=== PATIENT | female | born 1980 | race Caucasian/White ===

== ENCOUNTER → 2018-11-13 16:45 | Outpatient (CLI) | payer OTHER, SELFPAY ==
[2016-01-10 07:58] VITALS: BMI 28.1
[2018-11-13 17:42] LABS: Absolute Lymphocyte Count 1.39 X10^3/ul (0.83-4.51); Absolute Neutrophil Count 7.7 X10^3/uL (2.0-7.7); Basophil# 0.01 X10^3/uL; Basophil% 0.1 % (0-1); Eosinophil# 0.04 X10^3/uL; Eosinophils% 0.4 % (0-5); Hematocrit 40.4 % (37-47); Hemoglobin 13.2 g/dl (12.0-15.0); Lymphocyte # 1.39 X10^3/ul (4.0); Lymphocyte % 14.4 % (19-41); Mean Corp Hgb Conc 32.7 g/gl (32-36); Mean Corpuscular Hgb 28.4 pg (27.0-32.0); Mean Corpuscular Volume 86.9 fL (81-99); Mean Platelet Vol. 10.3 fl (6.2-12.0); Monocyte# 0.51 X10^3/uL; Monocyte% 5.3 % (0-10); Neutrophil # 7.69 X10^3/uL (2.7-7.7); Neutrophil % 79.7 % (47-70); Platelet Count 306 K/mm3 (150-450); RBC Distribution Width CV 13.1 % (11.6-14.6); RBC Distribution Width SD 41.7 fl (35.1-43.9); Red Blood Count 4.65 M/mm3 (4.2-5.4); White Blood Count 9.7 K/mm3 (4.4-11.0)
[2018-11-13 17:48] LABS: POSITIVE COUNT NO; POSITIVE DIFFERENTIAL NO; POSITIVE MORPHOLOGY NO
[2018-11-13 18:15] LABS: Vitamin B12 617 pg/mL (211-911)
[2018-11-13 18:22] LABS: AST(SGOT) 18 U/L (15-37); Alanine Aminotransfer ALT/SGPT 24 U/L (13-56); Alkaline Phosphatase 77 U/L (45-117); Anion Gap 11 (5-15); BUN 9 mg/dL (7-18); BUN/Creat Ratio 14.3 RATIO (10-20); Calcium,Total 9.2 mg/dL (8.5-10.1); Chloride 103 mmol/L (98-107); Creatinine, Serum 0.63 mg/dL (0.55-1.02); EST Glomerular Filtration Rate 113 mL/min (>60); Est Glom Filt Rate - Afr Amer 137 mL/min (>60); Ferritin 17 ng/mL (8-252); Globulin 3.9 g/dL (2.2-4.2); Glucose 95 mg/dL (74-106); Iron 85 ug/dL (50-170); Potassium 3.9 mmol/L (3.5-5.1); Protein, Total 7.9 g/dL (6.4-8.2); Sodium Level 139 mmol/L (136-145); T4 Free Direct 0.94 ng/dL (0.76-1.46); Thyroid Stim Hormone (TSH) 4.63 uIU/mL (0.358-3.74)
== END ==
PROVIDERS: Family Provider Family Medicine; PCP Family Medicine; Referring Provider Family Medicine; Visit Provider Family Medicine
DX: D64.9 Anemia, unspecified (principal); R23.3 Spontaneous ecchymoses; R10.11 Right upper quadrant pain; R53.83 Other fatigue
CPT/HCPCS: 36415; 80053; 82607; 82728; 83540; 84439; 84443; 85025

== ENCOUNTER 2018-12-09 10:46 | Emergency (ER) | payer OTHER, SELFPAY ==
[2018-12-09 10:47] VITALS: BP 164/86; PULSE 98; RESP 16; TEMP 36.7; O2SAT 100; BMI 30.7
--- NOTE | 2018-12-09 10:56 | ED.VISSUMM ---
- ER Visit Summary Date of Service: 12/09/18 Chief Complaint: Palpitations History of Present Illness: The patient is a 38 F history of anxiety and hypothyroidism. A month or so ago was started on thyroid medications. She states since Monday she has had palpitations. Really no significant chest pain. No exertional dyspnea nor exertional chest pain. States she is never had palpitations before. She denies any dyspnea. No recent nausea, vomiting or diarrhea. No fever. No recent travel, surgery or immobilization. No pain or swelling. No hemoptysis. Physical Examination: Well-appearing young female. Vital signs are stable. She is afebrile. Currently her heart rates in the 90s. Pulse ox 98% on room air no signs of hypoxia. No distress. H EENT exam unremarkable. Neck nontender. No lymphadenopathy. Lungs clear to auscultation bilaterally. Heart regular rate and rhythm no murmur rate about 100. Abdomen is soft and nontender. Normal bowel sounds no peritoneal signs. Extremities moves all 4. Calves are nontender without edema nor cords. Neurologically she is awake alert with no focal motor deficits. Skin is unremarkable. No rashes. Test Results: CBC normal. White count of 7. Hemoglobin 13. Chemistries normal normal gap and creatinine. TSH normal at 1.0 and troponin normal. Chest x-ray portable 1 view normal cardiac silhouette. No acute abnormality read both by myself and the radiologist. EKG sinus rhythm rate of 93 with PVCs. No signs of ischemia. No dysrhythmia. Emergency Department Course and Treatment: Patient with palpitations otherwise normal exam. Repeat exam at 11:53 AM patient is doing well. She is resting comfortably. She and I went over all of her test results. She is comfortable being discharged home. Treatment Plan: Follow-up with your primary care physician as needed. Disposition: Discharge Impression: Acute palpitations secondary to premature ventricular contraction This note was generated with Onzo dictation software. It may contain incorrect words, spelling, and punctuation that were not noted in review of the chart prior to signing ED Disposition - Plan for ED Patient: Referrals: Jayden Knapp MD [Primary Care Provider] -
--- NOTE | 2018-12-09 10:58 | EKG12_ITS ---
Test Reason : PALPS Blood Pressure : / mmHG Vent. Rate : 093 BPM Atrial Rate : 093 BPM P-R Int : 150 ms QRS Dur : 094 ms QT Int : 386 ms P-R-T Axes : 042 025 044 degrees QTc Int : 479 ms Sinus rhythm with occasional Premature ventricular complexes Otherwise normal ECG Confirmed by KRISTINA SANCHEZ, VIVIANE ([id number]), supervising film or videotape editor LACHO SCHMIDT ([id number]) on 12/11/2018 5:02:57 PM Referred By: KUSH Confirmed By:VIVIANE ACEVEDO MD
[2018-12-09 11:08] VITALS: O2SAT 100
--- NOTE | 2018-12-09 11:10 | RAD_ITS ---
STUDY: X-RAY CHEST REASON FOR EXAM: Female, 38 years old. Palpitations TECHNIQUE: AP COMPARISON: None. FINDINGS: EKG leads project over the chest. The lungs are clear and expanded. There is no demonstrated pleural abnormality. Normal size heart. Normal mediastinum and daniel. Normal visualized pulmonary arteries. Normal visualized aortic arch and descending thoracic aorta. Normal visualized thoracic spine. Normal visualized ribs, clavicles, and shoulders. There is no demonstrated abnormality of the visualized soft tissue structures of the upper abdomen. RAD/Chest 1 View (Portable) IMPRESSION: Nonacute portable x-ray examination of the chest. Electronically Signed: Frederic Rodriguez MD at 11:35 EST , Service support ,
[2018-12-09 11:18] LABS: Absolute Lymphocyte Count 1.65 X10^3/ul (0.83-4.51); Absolute Neutrophil Count 5.3 X10^3/uL (2.0-7.7); Basophil# 0.01 X10^3/uL; Basophil% 0.1 % (0-1); Eosinophil# 0.07 X10^3/uL; Eosinophils% 0.9 % (0-5); Hematocrit 40.1 % (37-47); Hemoglobin 13.6 g/dl (12.0-15.0); Lymphocyte # 1.65 X10^3/ul (4.0); Mean Corp Hgb Conc 33.9 g/gl (32-36); Mean Corpuscular Hgb 29.2 pg (27.0-32.0); Mean Corpuscular Volume 86.1 fL (81-99); Mean Platelet Vol. 10.3 fl (6.2-12.0); Monocyte# 0.49 X10^3/uL; Monocyte% 6.5 % (0-10); Neutrophil # 5.28 X10^3/uL (2.7-7.7); Neutrophil % 70.4 % (47-70); Platelet Count 286 K/mm3 (150-450); RBC Distribution Width CV 12.7 % (11.6-14.6); RBC Distribution Width SD 39.3 fl (35.1-43.9); Red Blood Count 4.66 M/mm3 (4.2-5.4); White Blood Count 7.5 K/mm3 (4.4-11.0)
[2018-12-09 11:19] LABS: POSITIVE COUNT NO; POSITIVE DIFFERENTIAL NO; POSITIVE MORPHOLOGY NO
[2018-12-09 11:41] LABS: BUN 11 mg/dL (7-18); Glucose 91 mg/dL (74-106)
[2018-12-09 11:42] LABS: Anion Gap 8 (5-15); BUN/Creat Ratio 18.2 RATIO (10-20); Chloride 105 mmol/L (98-107); EST Glomerular Filtration Rate 119 mL/min (>60); Est Glom Filt Rate - Afr Amer 144 mL/min (>60); Estimated Creatinine Clearance 116.64 ml/min; Potassium 3.6 mmol/L (3.5-5.1); Sodium Level 136 mmol/L (136-145); Thyroid Stim Hormone (TSH) 1.01 uIU/mL (0.358-3.74)
--- NOTE | 2018-12-09 11:56 | ED.DEP ---
ED Disposition - Plan for ED Patient: Disposition: Home or Assisted Living Instructions: Premature Ventricular Contractions Referrals: Jayden Knapp MD [Primary Care Provider] - As Needed
[2018-12-09 12:02] VITALS: BP 132/82; PULSE 90; RESP 16; O2SAT 100
== END 2018-12-09 12:04 | disposition home or self-care (01) ==
PROVIDERS: Emergency Provider Emergency Medicine; Family Provider Family Medicine; PCP Family Medicine
DX: I49.3 Ventricular premature depolarization (principal); F41.9 Anxiety disorder, unspecified; E03.9 Hypothyroidism, unspecified
CPT/HCPCS: 71045; 80048; 84443; 84484; 85025; 93005; 99284; A4216

== ENCOUNTER 2018-12-20 22:07 | Emergency (ER) | payer OTHER, SELFPAY ==
[2018-12-14 11:30] VITALS: BMI 30.7
[2018-12-20 22:08] VITALS: BP 141/87; PULSE 105; RESP 14; TEMP 36.9; O2SAT 99; BMI 29.6
--- NOTE | 2018-12-20 22:21 | EKG12_ITS ---
Test Reason : CP Blood Pressure : / mmHG Vent. Rate : 091 BPM Atrial Rate : 091 BPM P-R Int : 130 ms QRS Dur : 094 ms QT Int : 366 ms P-R-T Axes : 070 040 022 degrees QTc Int : 450 ms Normal sinus rhythm Nonspecific T wave abnormality Abnormal ECG Confirmed by KRISTINA SANCHEZ, VIVIANE ([id number]), editorial intern JOSE CARLOS PALMER ([id number]) on 12/25/2018 8:45:54 AM Referred By: JEAN Confirmed By:VIVIANE ACEVEDO MD
[2018-12-20 22:34] VITALS: O2SAT 100
--- NOTE | 2018-12-20 22:35 | RAD_ITS ---
STUDY: X-RAY CHEST REASON FOR EXAM: Female, 38 years old. Chest pain. TECHNIQUE: Single frontal view of the chest. COMPARISON: December 09, 2018 FINDINGS: The lungs are clear and expanded. There is no demonstrated pleural abnormality. Normal size heart. Normal mediastinum and daniel. Normal visualized pulmonary arteries. Normal visualized aortic arch and descending thoracic aorta. Normal visualized thoracic spine. Normal visualized ribs, clavicles, and shoulders. There is no demonstrated abnormality of the visualized soft tissue structures of the upper abdomen. RAD/Chest 1 View (Portable) IMPRESSION: No acute cardiopulmonary process. Electronically Signed: Fatoumata Garcia MD at 22:46 EST Tel , Service support ,
[2018-12-20 22:37] VITALS: BP 135/89; PULSE 85; RESP 15; TEMP 36.9; O2SAT 100
[2018-12-20 22:54] LABS: Absolute Lymphocyte Count 1.86 X10^3/ul (0.83-4.51); Absolute Neutrophil Count 5.2 X10^3/uL (2.0-7.7); Basophil# 0.01 X10^3/uL; Basophil% 0.1 % (0-1); Eosinophil# 0.08 X10^3/uL; Hematocrit 39.9 % (37-47); Hemoglobin 13.6 g/dl (12.0-15.0); Lymphocyte # 1.86 X10^3/ul (4.0); Lymphocyte % 24.2 % (19-41); Mean Corp Hgb Conc 34.1 g/gl (32-36); Mean Corpuscular Hgb 28.9 pg (27.0-32.0); Mean Corpuscular Volume 84.7 fL (81-99); Mean Platelet Vol. 10.3 fl (6.2-12.0); Monocyte# 0.56 X10^3/uL; Monocyte% 7.3 % (0-10); Neutrophil # 5.18 X10^3/uL (2.7-7.7); Neutrophil % 67.3 % (47-70); Platelet Count 281 K/mm3 (150-450); RBC Distribution Width CV 12.8 % (11.6-14.6); RBC Distribution Width SD 39.3 fl (35.1-43.9); Red Blood Count 4.71 M/mm3 (4.2-5.4); White Blood Count 7.7 K/mm3 (4.4-11.0)
[2018-12-20 22:56] LABS: POSITIVE COUNT NO; POSITIVE DIFFERENTIAL NO; POSITIVE MORPHOLOGY NO
[2018-12-20 23:04] LABS: Anion Gap 9 (5-15); BUN 6 mg/dL (7-18); BUN/Creat Ratio 8.6 RATIO (10-20); Chloride 105 mmol/L (98-107); EST Glomerular Filtration Rate 100 mL/min (>60); Est Glom Filt Rate - Afr Amer 121 mL/min (>60); Estimated Creatinine Clearance 99.98 ml/min; Glucose 102 mg/dL (74-106); Potassium 3.3 mmol/L (3.5-5.1); Sodium Level 137 mmol/L (136-145)
--- NOTE | 2018-12-20 23:42 | ED.VISSUMM ---
- ER Visit Summary Date of Service: 12/20/18 Chief Complaint: Chest pain History of Present Illness: The patient is a 38 F with chest pain that started at 5 PM today. It feels like a burning and sharp pain. It starts in her chest and radiates to her arms. She thought it might be related to reflux and tried Zantac but it did not help. She also had some anxiety. She has a history of hypothyroidism. No recent surgery. No history of heart disease or PE. No history of travel or surgery or immobilization recently. Non-smoker. No hormones. Physical Examination: Afebrile and vital signs unremarkable except for heart rate of 105. Patient is alert and oriented. No acute distress. Sitting comfortably. Heart regular rate and rhythm. Lungs clear. Skin normal in color without pallor or diaphoresis. Extremities nontender with no edema. Test Results: EKG shows sinus rhythm at a rate of 91 with nonspecific T wave changes. CBC normal. Potassium 3.3. Troponin normal. Chest x-ray showed no acute findings Emergency Department Course and Treatment: She had an EKG and was placed on a monitor. IV obtained and labs drawn. She declined anything for pain. Workup was fairly unremarkable. Potassium was 3.3 and she received a dose of K-Dur. Other than some nonspecific EKG changes and tachycardia, she had no other abnormal findings or concerning symptoms. Her heart score is 1. I cannot rule out PE because of her tachycardia, but I feel that PE is extremely unlikely. Patient declined any further evaluation for PE. There is nothing to suggest dissection. I suspect that her symptoms are related to GI issues and anxiety. Patient can continue her home medications. Follow-up with her doctor. Return for any new or worsening issues. Treatment Plan: As above Disposition: Discharge Impression: 1. Chest pain 2. Hypokalemia This note was generated with DocuSignation software. It may contain incorrect words, spelling, and punctuation that were not noted in review of the chart prior to signing ED Disposition - Plan for ED Patient: Referrals: Jayden Knapp MD [Primary Care Provider] -
--- NOTE | 2018-12-20 23:47 | ED.DCSUM_ITS ---
- ER Visit Summary Date of Service: 12/20/18 Chief Complaint: Chest pain History of Present Illness: The patient is a 38 F with chest pain that started at 5 PM today. It feels like a burning and sharp pain. It starts in her chest and radiates to her arms. She thought it might be related to reflux and tried Zantac but it did not help. She also had some anxiety. She has a history of hypothyroidism. No recent surgery. No history of heart disease or PE. No history of travel or surgery or immobilization recently. Non-smoker. No hormones. Physical Examination: Afebrile and vital signs unremarkable except for heart rate of 105. Patient is alert and oriented. No acute distress. Sitting comfortably. Heart regular rate and rhythm. Lungs clear. Skin normal in color without pallor or diaphoresis. Extremities nontender with no edema. Test Results: EKG shows sinus rhythm at a rate of 91 with nonspecific T wave changes. CBC normal. Potassium 3.3. Troponin normal. Chest x-ray showed no acute findings Emergency Department Course and Treatment: She had an EKG and was placed on a monitor. IV obtained and labs drawn. She declined anything for pain. Workup was fairly unremarkable. Potassium was 3.3 and she received a dose of K- Dur. Other than some nonspecific EKG changes and tachycardia, she had no other abnormal findings or concerning symptoms. Her heart score is 1. I cannot rule out PE because of her tachycardia, but I feel that PE is extremely unlikely. Patient declined any further evaluation for PE. There is nothing to suggest dissection. I suspect that her symptoms are related to GI issues and anxiety. Patient can continue her home medications. Follow-up with her doctor. Return for any new or worsening issues. Treatment Plan: As above Disposition: Discharge Impression: 1. Chest pain 2. Hypokalemia This note was generated with Alignment Acquis[employer]ation software. It may contain incorrect words, spelling, and punctuation that were not noted in review of the chart prior to signing ED Disposition - Plan for ED Patient: Referrals: Jayden Knapp MD [Primary Care Provider] -
--- NOTE | 2018-12-20 23:47 | ED.DEP ---
ED Disposition - Plan for ED Patient: Instructions: ED Chest Pain Atypical Unkn Cause Referrals: Jayden Knapp MD [Primary Care Provider] -
[2018-12-20 23:53] VITALS: BP 118/81; PULSE 68; RESP 16; O2SAT 97
== END 2018-12-20 23:59 | disposition home or self-care (01) ==
LOC: ED 23:10
PROVIDERS: Emergency Provider Emergency Medicine; Family Provider Family Medicine; PCP Family Medicine
DX: R07.9 Chest pain, unspecified (principal); E87.6 Hypokalemia; E03.9 Hypothyroidism, unspecified
CPT/HCPCS: 71045; 80048; 84484; 85025; 93005; 99285; A4216

== ENCOUNTER 2019-01-10 08:45 | Outpatient (RCR) | payer OTHER, SELFPAY ==
--- NOTE | 2019-01-10 09:01 | BH.SGPN.GN ---
Behaviors/Verbalizations/Mental Status: [Eye contact is good. Motor activity is appropriate. Appearance is casual and neat. Speech is Appropriate. Mood is anxious and dysthymic. Affect is congruent. Thoughts are linear and logical. No evidence of psychosis. Completed DSM cross-cutting assessment prior to group, no reported risk.]] Client Response/Progress/Benefit: [Pt first day in IOP group and did well to be engaged throughout AEB attentive and providing input. Emotion for today is uncertain indicating that she is trying to adjust to group environment and is feeling worried and frustrated about being able to manage ongoing anxiety. Reports this is her major stressors as it prevents her from sleeping, completing daily responsibilities at home and caused her to leave work early yesterday. Pt benefitted from empathic responses and supportive feedback of group. Identified wanting to improve healthy coping skills as well as ability to challenge anxious thoughts. Able to identify current positives as taking the step to begin therapy and work on reducing anxiety as well as being able to actually get some sleep last night as she usually has trouble with rumination preventing sleep. Plan is to remain in IOP to maintain safety and develop healthy skills for anxiety management and thought challenging. ] Narrative Note: []
--- NOTE | 2019-01-10 10:20 | BH.SGPN.GN ---
Behaviors/Verbalizations/Mental Status: []Client alert and oriented, neatly dressed and groomed. Eye contact good. Motor activity appropriate. Speech soft. Affect congruent, mood anxious. Thoughts linear, logical, no signs of hallucinations or delusions. Client Response/Progress/Benefit: []Client responded well to session, quiet, but taking notes and shared thoughts at times. Client connected with the topic of failure and famous people that have overcome setbacks. Client nodded that how one views failure can impact mental health and progress. Client shared we can measure success by effort versus measuring success by achieving a goal or not. Client stated fear of failure can result in worrying about the future.?Client engaged in a group activity that encouraged the group to overcome fear of failure and challenge their perspective of failure. Client was positive and provided verbal direction to group members. Client appeared to benefit from gaining awareness of how fear of failure negatively impacts mental health. Client showing progress with increased awareness of how unhealthy thought patterns impact her mental health. Pt to continue IOP level of care to decrease anxiety, identify and challenge anxious thoughts, and prevent decompensation. Narrative Note: []
--- NOTE | 2019-01-10 11:19 | BH.SGPN.GN ---
Behaviors/Verbalizations/Mental Status: []Client alert and oriented, neatly dressed and groomed. Eye contact good. Motor activity appropriate. Speech within normal limits. Affect congruent, mood anxious. Thoughts linear, logical, no signs of hallucinations or delusions. Client Response/Progress/Benefit: []Client responded well to session, providing input to discussion. Client further processed the group activity and shared that using supports and not getting defeated by setbacks helped the group accomplish the activity. Client completed the fear of failure worksheet and reported that fear of failure is keeping her from being productive at work and causes her to ?go through the motions? as a , employee, and mother. Client reported her barriers for overcoming her fear of failure are guilt, being a burden, obsessive thoughts, and being expected to ?feel fine.? Client shared she has been able to bounce back from setbacks in the past and the positive thing she has learned from past failures is ?there?s always another option.? Client selected a goal to help her overcome her fear of failure. Client?s goal is to focus on thoughts are thoughts, not facts. Client appeared to benefit from gaining awareness and setting a goal to reduce fear of failure. Client?s first day in IOP. To continue to prevent decompensation.
--- NOTE | 2019-01-11 09:02 | BH.SGPN.GN ---
Behaviors/Verbalizations/Mental Status: [Eye contact is fair to good. Motor activity is WNL. Appearance is casual, neat. Speech is appropriate rate and tone. Mood is dysthymic, anxious. Affect is constricted. Thoughts intact, linear and logical. No evidence of psychosis. Reviewed daily check in sheet with no reports of suicidal ideations or intent] Client Response/Progress/Benefit: [Pt provided minimal input though attentive throughout discussion and willing to process with group. Emotion for today is scared as she continues to worry about managing her anxiety and how it is impacting other areas of her life. Pt identified mental health positives as taking her dog out for a walk and completing her child?s kindergarten registration paperwork. Pt went on to share that these are positives as her anxiety makes it difficult to complete daily tasks, noting that this was the first walk she has gone on with her dog this year. Progress in pt ability to small positives and she appeared to benefit from supportive suggestions provided by the group. Current stressor is ongoing insomnia which pt reports struggling with relying solely on her Xanax to fall asleep despite not wanting to have to take medication. Will continue in IOP to maintain safety, begin development of healthy anxiety management tools, and work towards reducing sx causing panic and insomnia] Narrative Note: []
--- NOTE | 2019-01-11 10:20 | BH.SGPN.GN ---
Behaviors/Verbalizations/Mental Status: [] Eye contact is good. Motor activity is appropriate. Appearance is neat. Speech is Appropriate. Mood is anxious. Affect is congruent. Thoughts are linear and logical. No evidence of psychosis. Client Response/Progress/Benefit: [] Pt was an active participant in group discussion and activity. Worked with the group to identify negative coping skills which increase MH symptoms such as; addiction, isolation, avoidance, sleeping to escape, anger outbursts, and impulsive behaviors. Group also identified barriers or obstacles that keep us in unhealthy coping skills such as; lack of awareness of healthy coping, immediate gratification, unhealthy feels comfortable, challenging to change what we are used too, being in negative relationships, and distorted thinking. Participated in experiential activity and processed the activity with the group. Through processing of activity group identified some strategies which helped them overcome barriers during the activity. Able to identify how strategies used such as communication, focus, and mindfulness could also be beneficial positive coping skills. Started to categorize internal vs external coping skills. Benefited from group through identification of unhealthy coping skills, barriers to overcoming unhealthy coping skills, psycho-education on external vs internal coping skills, and coping strategies. Will continue in IOP to prevent decompensation, decrease panic attacks, improve functioning to return to work. Narrative Note: []
--- NOTE | 2019-01-11 13:15 | PCM.HP.BLA ---
History and Physical Date of Admission: 01/10/19 Chief Complaint: The patient is a 38-year old female who is beginning treatment in the intensive outpatient mental health treatment program at [facility]. She has a history of problems with anxiety, OCD symptoms, somatization and depression. History of Present Illness: The patient states that she has had problems with anxiety ever since she was a child. She is a big worrier and tends to worry about everything. Lately, she has been worrying more about her health and the health of her children. Her children become sick she checks their temperatures numerous times per day. She also is constantly monitoring herself for health problems. She notes that her worry and anxiety becomes worse in the evening. Then has problems sleeping and then worries about if she can fall asleep or not. She thinks her health worries started when 1 of her previous supervisors abruptly of leukemia. More recently, her health worries and general anxiety increased in October 2018 after her doctor diagnosed her with being hypothyroid. Her anxiety worsened in December 2018 when she started to develop panic attacks. Panic symptoms began to cause her to miss time at work. With panic attacks she becomes short of breath and experiences palpitations. She has developed a burning sensation in her chest which she believes is a manifestation of anxiety. The patient is also begun to symptoms of depression over the past few weeks. She is not depressed much of the time. Sleep has been poor. Her appetite is poor. Her energy level is good. She has been crying frequently. She is not able to enjoy things in life as before. She has been more irritable. Her concentration has decreased, and this has made it difficult for her to concentrate at work. She has some hope for the future and she denied suicidal thoughts. The patient reports a history of obsessive symptoms. She was a child she used to count her steps. Things had to be in multiples of 3 or with a 3 and the number. Has had intrusive thoughts of someone being in a room of her house with a knife. The gas pump, she has to stop the amount has a 3 unit. If she does not perform these rituals and she is very uncomfortable. Past Psychiatric History: The patient has never been admitted to a psychiatric hospital. However, he has made several visits to the emergency room within the past month because of anxiety attacks. She has never made any suicide attempts. She was first treated for anxiety by her primary care doctor at age 25. Has been on several SSRIs over the years. She previously did well with Paxil, but it was stopped because of concerns that it was causing night sweats. She has been taking Prozac for the past 4 or 5 years. The dose was increased from 20-40 mg 3 weeks ago but the increase has made no difference. He also has been taking Xanax 1 mg nightly mostly for help with sleep. She would prefer to use a medicine other than Xanax for sleep. She is just starting to work with a therapist. Current Psychiatric Medications: Prozac 40 mg daily, Xanax 1 mg nightly as needed Medical History: Is overweight. She has hypothyroid treated with levothyroxine. Her levothyroxine was recently stopped her PCP fearing that it was making her situation worse. Allergies: No known drug allergies. Family Psychiatric History: Patient's young son has been diagnosed with generalized anxiety disorder. Her sister and 2 of her brothers have anxiety. Personal/Social History: The patient was raised by her parents and has a good relationship with them. She has a fraternal twin sister and 3 brothers. She graduated from high school and has done some college work. 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 He is currently on FMLA leave. She has been to her for the past 14 years and she described the relationship as fabulous. They have 2 children who are 9 and 6 years old. Substance abuse history the patient said that she used to drink on occasion but has stopped drinking. She denied any history of illegal drug use. Review of Systems: Psychiatry: Worsening depression and anxiety as per HPI. She is not suicidal. There is no psychosis. She is cognitively intact. Constitutional: He is overweight and her weight has been steady. Her energy level is low. Endocrine: She was recently diagnosed hypothyroid. All other systems reviewed and are negative. Examination: Patient presents as a pleasant, personable female who wears glasses. She is casually dressed and neatly groomed. She demonstrates good social skills. Vital signs: Height 5 foot 5 inches, weight 168 pounds, respirations 16. Musculoskeltal: No muscle weakness or joint pain. Her speech is fluent and spontaneous. Her language is intact. Her judgment and insight are intact. She is alert and oriented x3. Her affect is cordial and appropriate. Her recent and remote memory are intact. She demonstrates normal attention span, decreased concentration on examination. She has normal thought processes and abstract reasoning. Her associations are intact. There are no hallucinations or delusions. She is not suicidal. She demonstrates normal age-appropriate fund of knowledge. Mental Status Examination: Patient presents as a pleasant, personable female who is in mild distress. She demonstrates good social skills. Her thoughts are logical and coherent. Her depression recently started and has worsened as per HPI. She is not suicidal. There is no psychosis. She is cognitively intact. Diagnoses: [] Metcalf I: Generalized anxiety disorder; panic disorder; depression unspecified; OCD Metcalf II: None Metcalf III: Hypothyroid Plan: I am stopping Prozac and prescribing Paxil 20 mg daily. I am also prescribing trazodone 50 mg nightly as needed. Patient will be lowering her dose of Xanax trying to stop it. I am prescribing trazodone 50 mg nightly as needed. Patient will participate in the intensive outpatient groups. I will see her again for follow-up.
--- NOTE | 2019-01-11 13:44 | HP.PCM_ITS ---
History and Physical Date of Admission: 01/10/19 Chief Complaint: The patient is a 38-year old female who is beginning treatment in the intensive outpatient mental health treatment program at [facility]. She has a history of problems with anxiety, OCD symptoms, somatization and depression. History of Present Illness: The patient states that she has had problems with anxiety ever since she was a child. She is a big worrier and tends to worry about everything. Lately, she has been worrying more about her health and the health of her children. Her children become sick she checks their temperatures numerous times per day. She also is constantly monitoring herself for health problems. She notes that her worry and anxiety becomes worse in the evening. Then has problems sleeping and then worries about if she can fall asleep or not. She thinks her health worries started when 1 of her previous supervisors abruptly of leukemia. More recently, her health worries and general anxiety increased in October 2018 after her doctor diagnosed her with being hypothyroid. Her anxiety worsened in December 2018 when she started to develop panic attacks. Panic symptoms began to cause her to miss time at work. With panic attacks she becomes short of breath and experiences palpitations. She has developed a b urning sensation in her chest which she believes is a manifestation of anxiety. The patient is also begun to symptoms of depression over the past few weeks. She is not depressed much of the time. Sleep has been poor. Her appetite is poor. Her energy level is good. She has been crying frequently. She is not able to enjoy things in life as before. She has been more irritable. Her concentration has decreased, and this has made it difficult for her to concentrate at work. She has some hope for the future and she denied suicidal thoughts. The patient reports a history of obsessive symptoms. She was a child she used to count her steps. Things had to be in multiples of 3 or with a 3 and the number. Has had intrusive thoughts of someone being in a room of her house with a knife. The gas pump, she has to stop the amount has a 3 unit. If she does not perform these rituals and she is very uncomfortable. Past Psychiatric History: The patient has never been admitted to a psychiatric hospital. However, he has made several visits to the emergency room within the past month because of anxiety attacks. She has never made any suicide attempts. She was first treated for anxiety by her primary care doctor at age 25. Has been on several SSRIs over the years. She previously did well with Paxil, but it was stopped because of concerns that it was causing night sweats. She has be en taking Prozac for the past 4 or 5 years. The dose was increased from 20-40 mg 3 weeks ago but the increase has made no difference. He also has been taking Xanax 1 mg nightly mostly for help with sleep. She would prefer to use a medicine other than Xanax for sleep. She is just starting to work with a therapist. Current Psychiatric Medications: Prozac 40 mg daily, Xanax 1 mg nightly as neede d Medical History: Is overweight. She has hypothyroid treated with levothyroxine. Her levothyroxine was recently stopped her PCP fearing that it was making her situation worse. Allergies: No known drug allergies. Family Psychiatric History: Patient's young son has been diagnosed with generalized anxiety disorder. Her sister and 2 of her brothers have anxiety. Personal/Social History: The patient was raised by her parents and has a good relationship with them. She has a fraternal twin sister and 3 brothers. She graduated from high school and has done some college work. 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 He is currently on FMLA leave. She has been to her for the past 14 years and she described the relationship as fabulous. They have 2 children who are 9 and 6 years old. Substance abuse history the patient said that she used to drink on occasion but has stopped drinking. She denied any history of illegal drug use. Review of Systems: Psychiatry: Worsening depression and anxiety as per HPI. She is not suicidal. There is no psychosis. She is cognitively intact. Constitutional: He is overweight and her weight has been steady. Her energy level is low. Endocrine: She was recently diagnosed hypothyroid. All other systems reviewed and are negative. Examination: Patient presents as a pleasant, personable female who wears glasses. She is casually dressed and neatly groomed. She demonstrates good social skills. Vital signs: Height 5 foot 5 inches, weight 168 pounds, respirations 16. Musculoskeltal: No muscle weakness or joint pain. Her speech is fluent and spontaneous. Her language is intact. Her judgment and insight are intact. She is alert and oriented x3. Her affect is cordial and appropriate. Her recent and remote memory are intact. She demonstrates normal attention span, decreased concentration on examination. She has normal thought processes and abstract reasoning. Her associations are intact. There are no hallucinations or delusions. She is not suicidal. She demonstrates normal age- appropriate fund of knowledge. Mental Status Examination: Patient presents as a pleasant, personable female who is in mild distress. She demonstrates good social skills. Her thoughts are logical and coherent. Her depression recently started and has worsened as per HPI. She is not suicidal. There is no psychosis. She is cognitively intact. Diagnoses: [] Foster I: Generalized anxiety disorder; panic disorder; depression unspecified; OCD Foster II: None Foster III: Hypothyroid Plan: I am stopping Prozac and prescribing Paxil 20 mg daily. I am also prescribing trazodone 50 mg nightly as needed. Patient will be lowering her dos e of Xanax trying to stop it. I am prescribing trazodone 50 mg nightly as needed. Patient will participate in the intensive outpatient groups. I will see her again for follow-up.
--- NOTE | 2019-01-11 13:44 | BH.DR.ITP ---
Initial Treatment Plan - Patient Information Visit Information: ADMISSION DATE: 01/10/19 EXPECTED LOS: 4-6 weeks Diagnoses:: Generalized anxiety disorder; panic disorder; depression unspecified; somatic symptom disorder - Problems/Symptoms Problem #1:: Generalized anxiety disorder Symptom:: anxiety, worry Problem #2:: depression Symptom:: low mood, anhedonia; low energy Problem #3:: somatic symptom disorder Symptom:: Exaggerated worry about her health and the health of her children
--- NOTE | 2019-01-16 10:07 | BH.SGPN.GN ---
Behaviors/Verbalizations/Mental Status: [Client eye contact good, grooming and attire casual and neat, motor activity WNL, speech normal rate and tone, mood anxious and dysthymic, congruent affect, thoughts linear and intact, no evidence of delusions or hallucinations] Client Response/Progress/Benefit: [Pt receptive of session, attentive to discussion and providing input throughout. Reflected upon the quote and engaged in discussion regarding how we make decisions in our own lives. Pt indicated that not being ready to admit or knowing warning signs leading up to a need for change can prevent making healthy decisions in daily life. She appeared to benefit from group discussion regarding ?Chapters of My Life? poem and provided insight regarding how each chapter can represent the various stages in management of mental health sx and healthy decision making. Pt able to make connections with the various chapters and discussed how for her the first chapter was the scariest as she had no idea what was happening or how she had ?gotten here?. She did well to assess her own current mental health progress and shared that she is currently in Chapter 2 as she knows what her anxiety feels like but is still not aware of ?how I got there?. Pt progress in improved ability to engage in group setting despite ongoing anxiety and ruminating thoughts impacting her ability to remain present. Recommended continued tx to increase insight, reduce anxiety, and prevent decompensating] narrative Note: []
--- NOTE | 2019-01-23 11:17 | BH.SGPN.GN ---
Behaviors/Verbalizations/Mental Status: [Client alert and oriented, neat and casually dressed, appearance appropriate. Eye contact good. Motor activity appropriate. Speech within normal limits. Affect constricted, mood dysthymic and anxious. Thoughts linear, logical, no signs of hallucinations or delusions. ] Client Response/Progress/Benefit: [Client was an attentive and actively engaged participant AEB taking notes and providing some input throughout group discussion and activity. Able to identify obstacles currently preventing from achieving her identified desired reality. Barriers included: intrusive thoughts, fear of the unknown, second-guessing herself, and negative self-talk. Client was able to identify personal resilience factors that can help overcome barriers. Client?s personal resilience factors included; motivation to improve, healthy supports, focusing on taking things on step at a time, and using positive outlets such as exercise and playing with her kids to cope with high anxiety moments. Active during activity and worked with group to provide ideas on how to cope with internal barriers. Group identified various obstacles during the activity and developed strategies to overcome those obstacles to wellness and desired reality. Client selected wanting to work on the barrier of intrusive thinking patterns by continuing to identify ways to reframe and cope with these thoughts via mindfulness and thought challenging. Benefited from group by identifying obstacles and solutions to desired reality. Will continue IOP tx to decrease depression and anxiety, increase use of self-care skills, and prevent decompensation.] Narrative Note: []
--- NOTE | 2019-02-01 09:06 | BH.SGPN.GN ---
Behaviors/Verbalizations/Mental Status: [Eye contact is good. Motor activity is appropriate. Appearance is neat and casual. Speech is Appropriate. Mood is anxious, dysthymic. Affect is congruent. Thoughts are linear and logical. No evidence of psychosis. Reviewed daily check in sheet and no reports of suicidal ideations or intent.] Client Response/Progress/Benefit: [Pt was an active participant in group discussion, listening throughout. Emotion for today is a little anxious. Shared with the group that she is continuing to adjust to recent return to work. Reports that she is doing ?mostly well? 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 Able to identify anxiety management skills to apply during those times and reports that taking breaks, positive self-talk, and small healthy distractions have been beneficial in mood regulation. Discussed ongoing anxiety related to intrusive thoughts however indicates improved ability to manage these thoughts. Provided appropriate feedback to peers. Progress noted per pt report of improved anxiety management in the workplace. Benefited from group support and reflecting on personal wins. Will continue in IOP to prevent decompensation, stabilize anxiety, and continue to support during transition back to work full-time.
--- NOTE | 2019-02-08 11:24 | BH.SGPN.GN ---
Behaviors/Verbalizations/Mental Status: [Client alert and oriented, neat and casual dress, hygiene appropriate. Eye contact good. Motor activity appropriate. Speech within normal limits. Affect congruent, mood anxious and dysthymic. Thoughts linear, logical, no signs of hallucinations or delusions. ] Client Response/Progress/Benefit: [Pt responded well to session, active participant and willing to provide insight throughout. Pt did well to engage in the boundary self-assessment activity and worked with group to further process. Pt discussed that she has been becoming much more aware of how her difficulties in setting internal boundaries with herself has impacted her anxiety and engagement in self-care practices. Noted that she has been working on improving internal boundaries and limiting use of reassurance seeking behaviors as a result. Appeared to benefit from group discussion on strategies for further improving personal boundaries. Identified wanting to improve her ability to set and maintain healthy emotional boundaries with herself, specifically in regard to reducing reassurance seeking and prioritizing self-care. Progress noted in pt ability to identify impact of current boundaries on mental health progress and anxiety management. Pt to continue IOP tx to maintain gains made, improve anxiety management, and continue to promote healthy change behaviors.] Narrative Note: []
--- NOTE | 2019-02-11 09:06 | BH.SGPN.GN ---
Behaviors/Verbalizations/Mental Status: [Pt alert and oriented, neat and casual dress, grooming appropriate. Eye contact good. Motor activity appropriate. Speech within normal limits. Affect congruent, mood euthymic, anxious. Thoughts linear, logical, no signs of hallucinations or delusions. Reviewed client?s symptom tracker, no signs of suicidal ideation, plan, or intent as of today.?] Client Response/Progress/Benefit: [Pt was receptive of session, willing participant in group discussion, providing input and feedback to the group. Emotion for today is anxious. Pt indicated that she is worried about her son?s kindergarten registration and has been struggling with some distorted thoughts as a result. Reports using thought challenging and calming skills to reduce use of catastrophizing. Additionally, indicated reminding herself to be comfortable with the uncomfortable. Indicates progress in anxiety management. She was receptive of group feedback. Stressor noted that anxiety gets worse at night, willing to identify potential calming strategies to apply during these times. Pt progress noted in improved use of thought challenge and mindfulness; however recommended continued IOP tx to further improve use of anxiety management and effective communication skills, as well as to prevent decompensation. ] Narrative Note: []
== END 2019-01-13 23:59 ==
LOC: BHIOP 08:45
PROVIDERS: Family Provider Family Medicine; PCP Family Medicine; Referring Provider Psychiatry & Neurology Psychiatry; Visit Provider Psychiatry & Neurology Psychiatry
DX: F41.1 Generalized anxiety disorder (principal); F41.0 Panic disorder [episodic paroxysmal anxiety]; F32.9 Major depressive disorder, single episode, unspecified; F42.9 Obsessive-compulsive disorder, unspecified; F45.9 Somatoform disorder, unspecified; E66.3 Overweight; Z79.899 Other long term (current) drug therapy; E03.9 Hypothyroidism, unspecified
CPT/HCPCS: H0035; 90853

== ENCOUNTER 2019-01-14 09:00 | Outpatient (RCR) | payer OTHER, SELFPAY ==
--- NOTE | 2019-01-14 09:05 | BH.SGPN.GN ---
Behaviors/Verbalizations/Mental Status: [] Eye contact is good. Motor activity is appropriate. Appearance is neat. Speech is Appropriate. Mood is anxious. Affect is congruent. Thoughts are linear and logical. No evidence of psychosis. Reviewed daily check in sheet and no reports of suicidal ideations or intent Client Response/Progress/Benefit: [] Pt was an active participant in group discussions. Emotion for today is frustrated. Reports that she was able to enjoy family events this weekend. States that through education and skills learned last week she was able to minimally improve her anxiety. While anxiety continues to be present along with distorted thoughts she feels it has improved slightly. Progress noted per pt report. Reports being more present and mindful in time spent with family this weekend. Benefited from group encouragement, feedback, and support. Will continue in IOP to prevent decompensation, stabilize anxiety, and improve functioning to return to work. Narrative Note: []
--- NOTE | 2019-01-14 10:15 | BH.SGPN.GN ---
Behaviors/Verbalizations/Mental Status: [] Eye contact is good. Motor activity is appropriate. Appearance is casual. Speech is Appropriate. Mood is anxious. Affect is congruent. Thoughts are linear and logical. No evidence of psychosis. Client Response/Progress/Benefit: [] Pt was an active participant in group discussion and activity. Group worked together to identify the benefits of setting goals which included; having something to strive for, can be a positive motivator, can give a sense of purpose and accomplishment, can increase happiness and feeling of being proud, and can hold us accountable. Group discussed the barriers to following through with completing a goals which included; fearing change, lack of motivation, fear of failure, shame, disappointment, lack of support, and negative thoughts or emotions get in the way. Pt was attentive during psychoeducation on developing SMART (Specific, Measurable, Achievable, Realistic, Timely) goals as a tool to help with goal setting. Benefited from group by learning effective strategies for goal-setting and identifying barriers to completing goals. Narrative Note: []
--- NOTE | 2019-01-14 11:20 | BH.SGPN.GN ---
Behaviors/Verbalizations/Mental Status: [] Pt eye contact good, casually dressed, motor activity restless, speech normal rate and tone, mood anxious, congruent affect, thoughts linear and logical, no evidence of delusions or hallucinations. Client Response/Progress/Benefit: []Pt listened attentively to others and contributed thoughts and ideas to discussion. Client identified her small SMART goal is to cook at two meals from scratch by Monday. Client stated this goal will benefit her by getting back to engaging in things she used to enjoy, feel more accomplished and knows it makes her children happy. Pt identified low motivation to be potential barrier to achieving identified goal, stated she can overcome this barrier by reminding herself of the benefits. Pt shared another barrier would be decreased appetite which she identified cooking meals she enjoys as potential strategies to overcome barrier. Pt seemed to benefit from identifying a SMART goal and identifying ways to help overcome potential barriers. Pt to continue IOP level of care to decrease anxiety, continue to use healthy coping and cognitive restructuring, and prevent decompensation. Narrative Note: []
--- NOTE | 2019-01-16 09:03 | BH.SGPN.GN ---
Behaviors/Verbalizations/Mental Status: []Client alert and oriented, neatly dressed and groomed. Eye contact good. Motor activity appropriate. Speech within normal limits. Affect incongruent-reporting high anxiety, yet smiling, mood anxious. Thoughts linear, logical, no signs of hallucinations or delusions. Reviewed client?s symptom tracker, no risk for suicidal ideation, plan, or intent as of 01/16/19. Client Response/Progress/Benefit: []Client responded well to session, engaged throughout. Client reports feeling ?anxious? today and that she woke up feeling anxious. Client identified her anxiety trigger to be getting her children ready for school. Client stated, ?I worry about worrying.? Client reported she continues to experience severe anxiety symptoms, but she is hopeful since coming to IOP. Client?s current mental health positives include sleeping well last night and being able to read last night. Client stated, ?I haven?t been able to focus and read for a long time.? Client received supportive statements from peers on how to cope with anxiety. Client appeared to benefit from connecting with peers. Progress noted as client reports increased awareness of intrusive thoughts and report of learning coping skills. Client to continue IOP to prevent decompensation and reduce anxiety.
--- NOTE | 2019-01-16 11:15 | BH.SGPN.GN ---
Behaviors/Verbalizations/Mental Status: [] Eye contact is good. Motor activity is appropriate. Appearance is casual. Speech is Appropriate. Mood is anxious. Affect is congruent. Thoughts are linear and logical. No evidence of psychosis. Client Response/Progress/Benefit: [] Pt was an active participant in group activity and discussion. Participated in group discussion about what helps people move through the chapters of their life. Completed that WDEP (wants, Doing, Evaluate, Plan) Worksheet and discussed with peers in small groups. Identified a want as to go back to work w/o having panic attacks and learn better ways to manage anxious thoughts, identified things that she is doing in regards to that want which include; feeding into constant anxiety by seeking re-assurances, being consumed by thoughts, not being productive, OCD thinking. She evaluated what she is doing stating I don't know how to stop on my own. Discussed her plan to continue on pace with her want which includes IOP program to learn skills. Benefited from group as she was able to identify personal steps she is doing to accomplish her want or goal. Narrative Note: []
--- NOTE | 2019-01-16 15:01 | BH.PSA ---
Source of Information - Presenting Problems/Circumstances Problems, Referral Source, Mental Status, Client: The patient is a 38-year old female who was referred for treatment in the intensive outpatient mental health treatment program by her outpatient therapist at [facility]. Pt referred for increased anxiety and depression resulting in panic attacks on an almost daily basis, difficulties managing anxiety at work leading to taking a leave, decreased sleep, depression, and passive SI. Pt reports a history of anxiety, OCD symptoms, somatization and depression. Psychiatric Presentation - Psych Issues & Need for Admission Psychiatric Issues:: Anxiety, panic, OCD, depression Past Psychiatric History - Treatment Hx Treatment History: Previously treated for anxiety by PCP at age 25, with several medication trials for anxiety. Pt reports she has been working with Asia Vizcaino at [facility] 2x per month for her anxiety for the past few years, however has found this not to be intensive enough. First hospitalization:: Denies previous hospitalization Most recent hospitalization:: Denies previous hospitalization Medication Trials:: Yes - Paxil ECT Therapy:: No Age of first mental health symptoms: Pt reports first experiencing anxiety and OCD related sx around age 9. She indicates remembering she had always been a worrier and often catastrophized. Pt indicates experiencing urges to engage in compulsive behaviors such as counting her steps, checking locks, and doing things in patterns of three. Pt reports continuing to engage in repetitious behaviors but to a less extend and endorses more pure obsessional sx at present. Reports additionally struggling with some depression following experiencing childhood trauma. Describe (age, circumstance, etc) any past hospitalizations: Denies past psychiatric hospitalizations. Current providers for mental health treatment (counselor, psychiatrist, complex case manager, etc.): Currently sees Sahra Vizcaino
--- NOTE | 2019-01-17 09:05 | BH.SGPN.GN ---
Behaviors/Verbalizations/Mental Status: []Client alert and oriented, neatly dressed and groomed. Eye contact good. Motor activity restless. Speech within normal limits. Affect constricted, mood anxious. Thoughts linear, logical, no signs of hallucinations or delusions. Reviewed client?s symptom tracker, no risk for suicidal ideation, plan, or intent as of 01/17/19. Client Response/Progress/Benefit: []Client responded well to session, connecting with peers and contributing positively. Client reports feeling ?stronger mentally? today. Client shared her mental health wins with the group. Client?s wins included having a good time at her children?s soccer practice yesterday and going a full week without having a panic attack. Client reported belief her reduced panic is a combination of medication management and utilizing coping skills learned in IOP. Client?s current stressor is fear of returning to work due to stigma associated with mental health. Client shared she has received several texts from coworkers asking client why she is out from work and client has not responded to them. The group provided emotional support and helped client practice ways she can address going back to work while supporting her mental health. Client appeared to benefit from receiving supportive feedback. Progress noted by client?s report of reduced panic attacks. However, client continues to struggle with daily management of anxiety and intrusive thinking and can benefit from ongoing IOP treatment.
--- NOTE | 2019-01-17 10:21 | BH.SGPN.GN ---
Behaviors/Verbalizations/Mental Status: [Client eye contact good, grooming and attire neat and casual, motor activity WNL, speech normal rate and tone , mood anxious, constricted affect, thoughts linear and intact - evidence of rumination, no evidence of delusions or hallucinations] Client Response/Progress/Benefit: [Client responded well to session, taking notes, providing some positive contributions, and attentive throughout discussion. She appeared to make connections with input provided by fellow participants regarding ?Taking Action on one?s mental health?. Client engaged in the discussion of what it means to ?take action? in one?s mental health treatment and expressed that doing so can improve ability to cope with stressors, improve self-awareness and resiliency, and improve confidence in oneself. Client agreed with peers that to make change, one needs self-awareness, determination, healthy coping skills, and support. Client identified things in her life she wants to start taking control over and change. These things included: second-guessing, anxiety, fear of failre, her past, and shame/guilt. Client appeared to benefit from identifying things that are holding her back from mental wellness and learning what it means to ?take action.? Progress in increased levels of personal awareness regarding current barriers to mental health progress. Continued IOP tx recommended to increase anxiety management, continue to promote healthy change behaviors, and prevent decompensation.] Narrative Note: []
--- NOTE | 2019-01-17 11:20 | BH.SGPN.GN ---
Behaviors/Verbalizations/Mental Status: []Pt eye contact good, casually dressed, motor activity appropriate, speech normal rate and tone, mood anxious, congruent affect, thoughts linear and intact, no evidence of delusions or hallucinations. Client Response/Progress/Benefit: []Client engaged, provided input to the group and did well to actively contribute suggestions to the group. Client identified for her action plan she wants to focus on decreasing worry and rumination. Client reported this would be beneficial because will decrease stress and be able to live in the moment. Client shared two small steps towards this goal she plans to take in the next 30 Days include: writing down her worries to challenge or reframe and to go for a walk daily to incorporate relaxation and mindfulness into her day. Progress noted with increased insight into how her thought patterns are impacting her functioning. She seemed to benefit from reflecting with the group on the importance of taking small actionable steps towards addressing barriers and making notable changes in life. Recommend continued IOP treatment to continue use of cognitive restructuring, decrease intrusive thoughts, and prevent decompensation. Narrative Note: []
--- NOTE | 2019-01-21 09:05 | BH.SGPN.GN ---
Behaviors/Verbalizations/Mental Status: []Client alert and oriented, neatly dressed and groomed. Eye contact good. Motor activity restless-shaking her leg. Speech within normal limits. Affect congruent, mood anxious. Thoughts linear, logical, no signs of hallucinations or delusions. Reviewed client?s symptom tracker, no risk for suicidal ideation, plan, or intent as of 01/21/19. Client Response/Progress/Benefit: []Client responded well to session, active participant. Client reports feeling ?tired and anxious? today. Client shared she continues to feel ?worried about worrying? which client described as a vicious loop. Client stated her physical symptoms of anxious reinforce her anxious thoughts. Despite her anxiety, client had several mental health wins including not having a panic attack in over a week, going on a date with her , and enjoying time with her children over the weekend. Client reported she has also been successful in using different coping skills to manage anxiety such as walking and self-talk. Client appeared to benefit from normalizing her anxiety and identifying coping skills. Progress noted as client reports not having a panic attack in over a week. Client to continue IOP to further reduce anxiety and help client transition back to work.
--- NOTE | 2019-01-21 10:18 | BH.SGPN.GN ---
Behaviors/Verbalizations/Mental Status: [Client alert and oriented, casually and neatly dressed. Eye contact good. Motor activity appropriate. Speech normal rate and tone. Affect congruent, mood anxious, dysthymic. Thoughts linear, logical, no signs of hallucinations or delusions. ] Client Response/Progress/Benefit: [Client receptive of session, providing input throughout and remaining an active listener AEB taking notes and nodding. Client indicated connecting with the topic of cognitive distortions and discussed struggling with automatic negative thoughts in her own life. She went on to express that ?my mind will always find something to worry about? and attributed the frequency of her anxious thoughts to them becoming a habit over time. She did well to work with the group in identifying ways in which thoughts can impact mental health and reviewing the various types of distorted thoughts that increase mental health sx. Client provided an example of personal thought distortion of catastrophizing as she shared worrying that is hurt if he does not come home right after work. Client displaying progress in her ability to identify the impact reassurance has on reinforcing these thoughts and ultimately prolonging or intensifying anxiety over time. Client benefitted from increasing awareness of how cognitive distortions has impacted mental health and ability to function at baseline. Recommended continued IOP tx to increase ability to identify and challenge distorted thoughts, decrease depression and anxiety related sx, and prevent decompensation.] Narrative Note: []
--- NOTE | 2019-01-21 11:25 | BH.SGPN.GN ---
Behaviors/Verbalizations/Mental Status: []Pt eye contact good, casually dressed, motor activity appropriate, speech normal rate and tone, mood anxious, congruent affect, thoughts linear and intact, no evidence of delusions or hallucinations. Client Response/Progress/Benefit: []Client engaged in session as evidenced by client listening attentively to others and contributing thoughts to discussion. Client connected with discussion about needing to put effort into challenging distorted thought patterns because recognizes if doesn't try to challenge thoughts then nothing will change. Client identified jumping to conclusions and catastrophizing to be the cognitive distortions that she most often uses. Client provided examples of how she can take a small situation or stressor and turn it into an extreme outcome. Client worked with peers to identify distortions and reframe the distorted thought to a realistic, rational thought. Client showing progress with increased self-awareness of how distorted thoughts impact her functioning. Client to continue IOP level of care to continue building healthy skills, identify and challenge distorted thoughts and prevent decompensation. Narrative Note: []
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
--- NOTE | 2019-01-23 10:15 | BH.SGPN.GN ---
Behaviors/Verbalizations/Mental Status: [] Eye contact is good. Motor activity is appropriate. Appearance is casual. Speech is Appropriate. Mood is anxious. Affect is congruent. Thoughts are linear and logical. No evidence of psychosis. Client Response/Progress/Benefit: [] Pt was an active participant in group activity and discussion. Pt completed a drawing depicting her current reality which she is in an endless cycle of irrational thoughts. [place] to family. Worked with group to identify barrier to reaching desired reality which include; habit, unhealthy coping is easier, fear of failure, fear of changes, and sense of being vulnerable. Benefited from group as pt was able to identify current mental health state and barriers that are impacting progress. Narrative Note: []
--- NOTE | 2019-01-23 15:18 | BH.MDN ---
Multi-Disciplinary Note - Note 60-min Individual Time Started:: 12:30 Date: 01/23/19 Purpose of session/treatment goals addressed:: Purpose of this session was to assess pt current sx, stressors, and use of healthy strategies for managing anxiety. Another purpose was to begin working on understanding, identifying, and challenging common intrusive thoughts. Other topics covered: return to work and ongoing tx planning Eye Contact:: Good, Other - tearful when discussing specific varieties of intrusive thoughts Motor Activity:: Appropriate Appearance:: Neat Speech:: Appropriate Mood:: Anxious, Dysthymic Affect:: Congruent Thoughts:: Linear, Logical, No evidence of hallucinations/delusions noted Staff Interventions:: Therapist asked open ended and furthering questions to elicit information regarding current sx, stressors, and progress in managing anxiety related thoughts. Reviewed thought challenge worksheet provided for homework previously and aided pt in identifying common intrusive thoughts. Therapist provided psychoeducation on intrusive thoughts, types, factors reinforcing them, and common strategies to begin combating unwanted thoughts. Provided homework to identify and begin implementing the 6 steps to reducing distress over a thought strategy. Client Response:: Pt receptive of session and actively engaged throughout, at times becoming tearful in discussion regarding specific intrusive thoughts. She indicated completing the homework on beginning to apply thought challenge strategies when noticing unwanted or negative thoughts. Pt expressed that she was able to do this with some thoughts and had more difficulty with others, specifically thoughts of her family or herself becoming ill. Pt became tearful and expressed experiencing frequent thoughts of her family being due to illness or injury. She indicated connecting to discussion defining intrusive thoughts, how they develop, and common vulnerabilities that may impact susceptibility to such thoughts. Pt reflected being able to connect with some of the common intrusive thoughts identified in the Overcoming Unwanted Intrusive Thoughts workbook. She shared struggling with thoughts such as ?what if I hit someone while driving? or ?what if there was an animal in that bag? and has had to return to the location to check, beliefs that her children have a life-threatening illness if they present any symptoms, and intrusive thoughts of ?What if I can?t fall asleep? which results in increased anxiety and inability to sleep. She did well to identify potential vulnerabilities or times her thoughts are worse as being nearing bed time, following a change in medication, and recently when she was visiting her father in the hospital. Pt engaged in discussion reviewing steps to reduce distress over a thought. Expressed willingness to begin working on recognizing intrusive thoughts, reminding herself ?thoughts are just thoughts, not facts?, and accepting their presence; however, is uncertain regarding her ability to observe the impact thoughts have on her feelings, sit with the thoughts rather than fight them, and implement mindfulness strategies. Encouraged to work on implementing distress reducing strategies as homework. Risks/Concerns:: No risks or concerns at this time. Pt denies active SI, plan, or intent. Reports intrusive thoughts of dying though indicates no desire to . Expresses these thoughts scare her and indicates never wanting to act upon them. Pt is future oriented and notes her family as motivation to live. Progress Toward Goals/Plan:: Progress noted per pt as she indicates no panic attacks in the past 1.5 week as well as decreased anxiety. Pt continues to report some ?shakiness? however indicates that this has decreased since beginning IOP program and is able to manage it without escalation. Continues to report difficulty in managing overwhelming thoughts and fears of something happening to her family or herself. She is receptive of beginning to implement thought challenge and mindfulness techniques in reducing the impact of these thoughts on dx functioning. 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 Will continue in IOP to maintain safety, reduce anxiety and improve management of intrusive thoughts, and increase functioning. Time Stopped:: 13:27
--- NOTE | 2019-01-24 09:10 | BH.SGPN.GN ---
Behaviors/Verbalizations/Mental Status: [] Eye contact is good. Motor activity is appropriate. Appearance is casual. Speech is Appropriate. Mood is anxious. Affect is congruent. Thoughts are linear and logical. No evidence of psychosis. Reviewed daily check in sheet and no reports of suicidal ideations or intent. Client Response/Progress/Benefit: [] Pt was an active participant in group discussion. Emotion for today is content. Shared with the group that she had difficulty sleeping last night. Typically this would lead her to get into her car and drive around to various family members house to make sure they weren't on fire or something bad. In the past this is how she would ease her anxiety. Reports she was able to use more appropriate skills such as distraction through podcasts to help her fall back asleep. Continue to report daily and significant anxiety however reports that she is utilizing more skills to better manage her thoughts and symptoms. Group praised her for her use of skills which benefited pt. Progress noted. Will continue in IOP to stabilize anxiety, improve functioning to return to work, and prevent decompensation. Narrative Note: []
--- NOTE | 2019-01-24 10:11 | BH.SGPN.GN ---
Behaviors/Verbalizations/Mental Status: [Client alert and oriented, casually and neatly dressed, hygiene good. Eye contact good. Motor activity appropriate. Speech within normal limits. Affect congruent, mood euthymic. Thoughts linear, logical, no signs of hallucinations or delusions. ] Client Response/Progress/Benefit: [Pt responded well to session, providing feedback to discussion. Pt connected with the quote sharing, ?two people might be on different pages but think they?re on the same one.? Pt agreed with peers that ineffective communication can negatively impact mental health and relationships. Pt stated that we sometimes get caught up in thinking of our response rather than listening to what the other person is saying. Pt helped the group discuss the different communication styles including the payoffs and costs of each. Shared an example of using mindreading with her instead of effectively communicating her thoughts. Identified that this impact them both and caused frustration as neither were able to get their needs met. Pt recognized that ongoing lack of expression of needs could impact self-esteem and re-enforce anxiety levels. Pt appeared to benefit from increasing awareness of how communication impacts mental health. Progress noted as client reports increased insight into how her thoughts are impacted by lack of effective communication, but she continues to struggle with negative thinking patterns that reinforce anxiety and reassurance seeking. Recommended continued IOP tx to prevent decompensation, reduce anxiety, and promote effective communication skills.] Narrative Note: []
--- NOTE | 2019-01-24 11:20 | BH.SGPN.GN ---
Behaviors/Verbalizations/Mental Status: []Pt eye contact good, casually dressed, motor activity appropriate, speech normal rate and tone, mood euthymic, congruent affect, thoughts linear and intact, no evidence of delusions or hallucinations. Client Response/Progress/Benefit: []Pt active participant AEB pt providing input throughout and attentive to others. Pt identified to most often communicates assertively, however when she is passive when feeling anxious because doesn't want others to feel responsible to help her. Pt seems to lack insight about how her passive communication about her mental health can negatively impact her. Pt engaged in activity and seemed to gain insight about how indirect communication negatively impacts mental health and relationships. Pt identified her communication goal is to communicate honestly with her when he asks her how she is doing instead of telling him I'm fine. Pt seemed to benefit from increased insight into how her communication style impacts her mental health and relationships. Pt progressing with increased awareness of anxious thought patterns and is practicing skills learned to manage anxiety. Pt to continue IOP level of care to continue use of healthy coping, decrease anxiety and prevent decompensation. Narrative Note: []
--- NOTE | 2019-01-28 09:03 | BH.SGPN.GN ---
Behaviors/Verbalizations/Mental Status: [] Client alert and oriented, casual dress, hygiene tended to. Eye contact good. Motor activity appropriate. Speech within normal limits. Affect congruent, mood euthymic and positive. Thoughts linear, logical, no signs of hallucinations or delusions. Reviewed client?s symptom tracker, no signs of suicidal ideation, plan, or intent as of today. Client Response/Progress/Benefit: []Pt was an active participant in group discussion, providing input and openly processing with the group. Emotion for today is cautiously hopeful. Pt identified stressor to be having to return to work tomorrow. Pt stated she enjoys work but is anxious about questions she might get from coworkers about where she has been for the past couple of weeks. Pt reported she has a script of what she will say to her coworkers but is hoping no one tries to probe for too much information. Pt stated she doesn't want to be seen as crazy. Pt identified a mental health positive as being able to effectively manage her anxiety throughout the weekend which allowed her to enjoy time with her family. Pt noted progress as challenging her anxious thought that I'm never going to get better by reflecting on how she was doing a week ago which helped her see she is making progress. Pt seemed to benefit from supportive environment and noting treatment progress. Continued IOP level of care recommended to maintain gains, prevent decompensation, and continue to improve thought challenge skills. Narrative Note: []
--- NOTE | 2019-01-28 10:07 | BH.SGPN.GN ---
Behaviors/Verbalizations/Mental Status: []Client alert and oriented, neatly dressed and groomed. Eye contact good. Motor activity appropriate. Speech within normal limits. Affect congruent, mood anxious Thoughts linear, logical, no signs of hallucinations or delusions. Client Response/Progress/Benefit: []Client responded well to session, actively engaged throughout activity and discussion. Provided insight regarding topic of social supports and personal experiences in seeking support. Client reported connecting with the quote and shared that ?you need supports for accountability.? Client shared there are barriers to seeking social supports, however the consequences of limited social support can be worse than the barriers. Client identified consequences of lack of support to be increased mental health symptoms, ?responsibilities getting pushed aside,? and worse negative thinking. Identified benefits of social support as helping us stay accountable and telling us the truth when we need to hear it. Client was engaged during the group activity. Client reported the activity gave her anxiety, but she was able to manage it well. Appeared to benefit from gaining awareness of barriers that keep people from seeking social support as well as practicing in the moment coping skills during activity. Progress noted as shown by client?s report of no panic attacks for the last week. Client to continue IOP to promote mood stability and management of anxiety symptoms.
--- NOTE | 2019-01-29 11:08 | BH.SGPN.GN ---
Behaviors/Verbalizations/Mental Status: [Pt eye contact good, casually and neatly dressed, motor activity appropriate, speech normal rate and tone, mood euthymic and anxious, congruent affect, thoughts linear and intact, no evidence of delusions or hallucinations] Client Response/Progress/Benefit: [Pt receptive of session, actively provided input and ideas to discussion. Pt worked with the group to make connections between barriers faced in the challenge activity and those present in utilizing social supports in daily life. Pt reflected that a personal barrier in using her current supports is struggling with losing control of the situation. She contributed to discussion about the different types of support and indicated making connections with the benefits and importance of each type of support, specifically that of professional support. Client worked with the group to identify strategies for improving development of new supports and utilization of current supports. She suggested taking the initiative to reach out and continue to try new things as a potential strategy for improving supports. Client seemed to benefit from identifying a type of support she would like to improve upon and creating actionable steps to promote follow-through. Indicated wanting to improve professional support by continuing with counseling post discharge and actively working on applying skills learned outside of the IOP program. Client to continue IOP level of care to prevent decompensation, reduce anxiety and reassurance seeking behaviors, as well as continue to improve use of healthy skills.] Narrative Note: []
--- NOTE | 2019-01-30 09:10 | BH.SGPN.GN ---
Behaviors/Verbalizations/Mental Status: [] Eye contact is good. Motor activity is appropriate. Appearance is casual. Speech is Appropriate. Mood is anxious. Affect is congruent. Thoughts are linear and logical. No evidence of psychosis. Reviewed daily check in sheet and no reports of suicidal ideations or intent. Client Response/Progress/Benefit: [] Pt was an active participant in group discussion. Emotion for today is tense. Shared with the group that she returned to work yesterday after being off for 2 weeks due to MH symptoms. Reports that she managed her emotions well throughout the day. Discussed some negative thinking in the AM on the way to work however got through the day with no problems. States that she was physically exhausted and slept well last night. Shared that she woke up tense this AM however no specific trigger. Provided appropriate feedback to peers. Progress noted per pt report. Benefited from group support and praise. Will continue in IOP to prevent decompensation, stabilize anxiety, and transition back to work full-time. Narrative Note: []
--- NOTE | 2019-01-30 10:10 | BH.SGPN.GN ---
Behaviors/Verbalizations/Mental Status: []Client alert and oriented, casually dressed and groomed. Eye contact good. Motor activity appropriate. Speech within normal limits. Affect congruent, mood euthymic. Thoughts linear, logical, no signs of hallucinations or delusions. Client Response/Progress/Benefit: []Client responded well to session, active participant. Client contributed to the discussion of how life is made of up different internal and external positive and negative forces and how those forces impact one?s mental health. Client connected with the quote and shared ?you have to work at it to grow? and she used her personal experience at [facility] as an example. Client stated examples of positive forces include family, friends, and healthy coping skills. Client identified examples of negative forces to be unrealistic expectations and negative thoughts. Client participated in the activity and at first was quiet, due to her self-report of ?not wanting to be bossy,? but then became more vocal. Client appeared to benefit from gaining awareness of how positive and negative forces can cause growth. ?Progress noted as client reports improved ability to cope with her anxiety. Client to continue IOP to further manage intrusive thinking and increase mood stability.
--- NOTE | 2019-01-30 11:14 | BH.SGPN.GN ---
Behaviors/Verbalizations/Mental Status: [Client alert and oriented, neat and casually dressed and groomed. Eye contact good. Motor activity appropriate. Speech within normal limits. Affect congruent and mood anxious and euthymic. Thoughts linear, logical, no signs of hallucinations or delusions.] Client Response/Progress/Benefit: [Client willing to participate in activity and provided positive input throughout. Pt did well to follow direction, provide input, and encourage fellow participants in group. Pt worked with group to identify positive and negative forces influencing group progress in the activity and did well to relate this back to daily life. Client completed reflection worksheet which identified positive and negative forces that impact mental wellness. Client noted positive forces as: family support, resilience, willingness to ask for help, and treatment. Identified negative forces as: intrusive thoughts, anxiety, and fear. Client seemed to benefit from increased awareness of personal positive and negative forces in life and the impact they have on mental health and wellness. Progress noted in pt ability to identify positive forces of resilience factors supporting progress. Client to continue IOP level of care to continue to challenge distorted thought patterns, improve ability to manage sx of anxiety, and prevent decompensation.] Narrative Note: []
--- NOTE | 2019-01-30 14:59 | BH.MDN_ITS ---
Multi-Disciplinary Note - Note 30-min Individual Time Started:: 12:15 Date: 01/30/19 Purpose of session/treatment goals addressed:: Purpose of this session was to assess pt current sx, stressors, and treatment goal progress regarding thought challenging and anxiety management skills. Another purpose was to discuss pt recent return to work and continue working on addressing ongoing difficulties in managing intrusive thoughts. Topics discussed include: Myths of thoughts that contribute to intrusive thinking, reviewed behaviors that reinforce unwanted intrusive thoughts. Eye Contact:: Good - at times tearful when discussing intrusive thoughts Motor Activity:: Appropriate Appearance:: Neat Speech:: Appropriate Mood:: Anxious, Dysthymic Affect:: Congruent Thoughts:: Linear, Logical, No evidence of hallucinations/delusions noted Staff Interventions:: Therapist asked open ended and furthering questions to elicit information regarding current sx, stressors, and progress towards tx goals. Commended pt on areas of progress and applied strengths-based approach to aid pt in identifying progress while challenging difficulties in managing intrusive thoughts. Reviewed psychoeducation on intrusive thoughts and vulnerabilities, as well as began working with pt on common myths about thoughts that contribute to intrusive thinking. Provided homework to review Myths about thoughts worksheet when recognizing that she is experiencing intrusive thoughts. Client Response:: Pt receptive of session and engaged throughout. She indicated that her first day back at work had been positive and less stressful than anticipated. Pt discussed leaving work feeling accomplished and relieved as she had accomplished a lot of old work but was also exhausted as a result. Went on to note increased anxiety this morning which was discouraging as she felt like she was starting over and began to question her ability to effectively apply the skills learned. Pt able to identify potential vulnerability factors impacting likelihood of negative/intrusive thinking, noting that increased stress and fatigue may have contributed to her anxiety this morning. She expressed connecting with the concept discussed in group that progress is not linear and indicated needing to work on remembering to be patient and forgive herself. Pt went on to discuss often struggling with mindfully accepting her thoughts as she often feels tempted to try and control them control them. Pt and therapist spent a large portion of session reviewing the common myths of thoughts that contribute to intrusive thinking. Able to make connections between trying to control thoughts and unintentionally reinforcing them as a result. Reviewed strategies for improving ability to refrain from seeking reassurance or control over the anxiety provoking thought and pt identified journaling to work through her anxiety rather than asking her for reassurance as well as challenging herself to use grounding techniques and continue with her routine when experience an intrusive thought. Pt was provided with a homework to review the handout on myths about thoughts and journal when experiencing intrusive thoughts. Risks/Concerns:: No risks or concerns at this time. Pt denies active SI, plan, or intent as of 01/30/19. Pt is future oriented and notes her family as motivation to live. Progress Toward Goals/Plan:: Progress noted per pt as she indicates increased ability to manage her sx of anxiety and intrusive thoughts in the past week. As a result she has been able to successfully work through anxiety rather than esc alate to panic and reports she has experienced decreased panic sx in the past 2.5 weeks. Pt has successfully returned to work as a result and continues to display high levels of motivation to improve anxiety management. Pt completes all assignments and can identify some warning signs for anxiety, however does still struggle in this area. She reports ongoing frustration when not able to manage worries or feeling she should be doing more with impacts self-esteem and has caused some guilt. Will continue in IOP to prevent decompensation, reduce anxiety and continue to improve insight and identification, as well as management of intrusive thoughts, and increase functioning. Time Stopped:: 12:49
--- NOTE | 2019-01-30 15:01 | BH.MTP_ITS ---
Master Treatment Plan - Patient Information Program Physician:: Dr. Taj Arndt Primary Therapist:: YOVANA Pollard - Psychiatric Diagnoses Psychiatric Diagnoses:: Generalized Anxiety Disorder, Depression Unspecified, Obsessive Compulsive Disorder, Somatic Symptom Disorder Diagnosis Code(s):: F41.1, F32.9, F42.2, F45.1 - Estimated LOS Estimated LOS (in weeks):: 6 Problem/Goal #1 - Problem/Goal #1 Stated Goal:: Pt will reduce overall frequency, intensity, and duration of anxiety causing intrusive ruminating thoughts and reassurance seeking behaviors so that daily functioning is not impaired. Description of Barriers: Limited coping skills, hopelessness, no previous mental health tx and limited understanding regarding OCD, limited supports how know of extent of anxiety, reassurance seeking Functional Impact: Pt anxiety has led to recent difficulties completing occup ational responsibilities and led to panic at work resulting in pt taking time off due to anxiety. Isolative and avoidant behaviors on daily basis, panic impacting willingness to try new things, becoming overprotective of her children leading to restriction of activities and unnecessary doctor?s visits, worry causing pt to seek reassurance which impacts ability to complete tasks or increases time needed in doing so. Goal Relevant Strengths/Supports: Pt presents with high motivation to improve mental health sx and reports strong support from family and friends. Client de monstrates good insight to symptoms and negative thoughts that exacerbate anxiety and depression. Client is intelligent, amiable, determined, and caring. - Objectives Objective #1 Stated Objective: Client will identify 2-3 intrusive/ruminating thoughts and learn 2-3 strategies to overcome, replace, or challenge those thoughts. Interventions: Therapist will help client increase awareness of cognitive distortions, false comfort, and times when situations client ruminated on had positive outcomes. Therapist will encourage client to focus on stressors in her control and teach client myths about thoughts. Therapist will utilize distractions, mindfulness, and CBT-based strategies to help client learn how to more effectively manage and cope with her intrusive thoughts. Discharge Criteria: Client will have met this goal when can report least 2 ways to cope with intrusive thoughts that exacerbate anxiety. Target Date: 02/22/19 Review Date: 02/08/19 Objective #2 Stated Objective: Client will identify 2-3 anxiety triggers and 2 coping skills to use when feeling anxious to manage anxiety as shown by preventing decompensation via maintaining current DSM-5 scores for anxiety. Interventions: Through group and individual sessions, client will gain awareness of her anxiety triggers and learn numerous techniques to manage anxiety symptoms. Therapist will use an anxiety scale to help client increase awareness of the severity of her anxiety and identify appropriate coping skills to use depending on severity. Discharge Criteria: Client will have met this goal if client can prevent decompensation as evidenced by stability in DSM-5 scores and when she can identify at least 2 triggers and 2 ways to cope with anxiety. Target Date: 02/22/19 Review Date: 02/08/19 Problem/Goal #2 - Problem/Goal #2 Stated Goal:: Client will decrease hopelessness, feelings of guilt, anhedonia, and negative self-thoughts due to Depression NOS through Intensive Outpatient Services. Description of Barriers: Limited coping skills, hopelessness, no previous mental health tx, limited supports who know of extent mental health is impacting functioning, reassurance seeking Functional Impact: Pt depression has led to recent difficulties engaging with her supports and enjoying activities. She reports increased hopelessness, isolative and avoidant behaviors on daily basis. As a result pt reports increase anxiety, guilt, low self-esteem, and recently having to take time off of work. Goal Relevant Strengths/Supports: Pt presents with high motivation to improve mental health sx and reports strong support from family and friends. Client demonstrates good insight to symptoms and negative thoughts that exacerbate anxiety and depression. Client is intelligent, amiable, determined, and caring. - Objectives Objective #1 Stated Objective: Identify at least 2-3 negative self-talk messages used to reinforce feelings of worthlessness and replace thoughts with positive messages. Interventions: Therapist will help client identify distorted, negative beliefs about self and world and replace those messages with positive, affirmative messages. Discharge Criteria: Client will have achieved this goal when can identify at least 3 negative self-talk messages and replace those messages with positive, affirmative messages. Target Date: 02/22/19 Review Date: 02/08/19 Objective #2 Stated Objective: Client will learn and utilize 2-3 healthy coping strategies to better manage depressive symptoms and reduce DSM-5 symptoms for depression. Interventions: Through group and individual sessions, therapist will help client identify triggers and warning signs of depression and emotional dysregulation including emotional, physical, and behavioral changes. Therapist will teach client various coping skills to manage her symptoms. Therapist will use cognitive restructuring techniques and help client gain awareness of negative thoughts that reinforce depressive cycles. Therapist will help client incorporate mindfulness and emotional regulation skills when dealing with difficult situations or relationships. Discharge Criteria: Client will have met this goal when she can report learning and using at least 2 coping skills to manage depressive symptoms and her DSM-5 scores for depression have decreased. Target Date: 02/22/19 Review Date: 02/08/19
--- NOTE | 2019-01-30 15:02 | BH.MDN_ITS ---
Multi-Disciplinary Note - Note 60-min Individual Time Started:: 12:15 Date: 01/16/19 Purpose of session/treatment goals addressed:: Purpose of session was to establish rapport, assess current symptoms, stressors, and means for coping. Other topics included: gathering additional background information and setting small goals for the week. Eye Contact:: Good Motor Activity:: Appropriate Appearance:: Neat, Casual Speech:: Appropriate Mood:: Anxious, Depressed Affect:: Congruent Thoughts:: Linear, Logical, Racing, No evidence of hallucinations/delusions noted Staff Interventions:: Therapist used open ended questions to elicit pt's current symptoms and stressors impacting mental health, as well as current means of coping. Therapist inquired further regarding pt background information to gain a better understanding of mental health symptom hx, duration, intensity, and functional impact, as well as identify treatment hx. Therapist provided support by using active listening and validating emotions. Provided basic psychoeducation regarding anxiety and OCD. Applied [place] techniques to begin development of tx goals. Client Response:: Pt receptive of session and talkative throughout. Indicated that she has enjoyed the groups attended thus far and finds she is able to connect with the topics covered. Pt discussed primary reason for seeking IOP tx as an increase in severity of anxiety, primarily intrusive thoughts causing panic. Pt reported that most recently her thoughts escalated to the point of panic while at work, resulting in having to leave for the day. She explained this was particularly distressing as she her anxiety has never interfered with her ability to function in the workplace. She went on to indicate feeling hopeless, increasingly depressed, and as though she has ?hit rock bottom?. Pt identified most commonly experiencing intrusive thoughts of ?What if something happens to my family? or ?What if something happens to me and my kids are left alone?. Additionally, shared intrusive images of her loved ones injured which reinforces ruminating thoughts and anxiety. Pt was not able to identify a specific trigger she attributes to worsening sx; however, upon further exploration noted experiencing a combination of events she believes may have contributed. Reports putting her cat down in November, hearing of the unexpected cancer diagnosis of a celebrity she follows, discovering her father is not b iologically related to her, and recently being placed on a new medication for her thyroid. Pt and therapist processed and began challenging her fears regarding the impact of her sx on her children and fears of buringing out her supports, as well as discussed primary goals for tx including increasing understanding of OCD and ability to manage sx, improving ability to challenge and replace unwanted or distorted thoughts, and improving repertoire of healthy coping mechanisms. Pt provided with homework to begin completing a thought log to identify commonalities amongst intrusive thoughts experienced. Risks/Concerns:: No risks or concerns at this time. Pt denies any SI, plan, or intent as of this date, 01/16/19. Identifies her family as strong supports and largest protective factors. Progress Toward Goals/Plan:: Pt progress limited due to being new to IOP program. Despite limited time in program she is doing well to begin internalizing tx materials discussed in groups and reports connecting with experiences shared by fellow participants. Pt additionally is doing well to begin practicing introducing healthy coping mechanisms to her daily life outside of the IOP program and reports a strong desire to continue to learn skills for improving management of anxiety. The plan is for client to continue IOP to prevent decompensation, improve daily functioning, and reduce reassurance seeking when experiencing intrusive thinking. Time Stopped:: 13:21
--- NOTE | 2019-01-30 15:02 | BH.PSA_ITS ---
Source of Information - Presenting Problems/Circumstances Problems, Referral Source, Mental Status, Client: The patient is a 38-year old female who was referred for treatment in the intensive outpatient mental health treatment program by her outpatient therapist at [facility]. Pt referred for increased anxiety and depression resulting in panic attacks on an almost daily basis, difficulties managing anxiety at work leading to taking a leave, decreased sleep, depression, and passive SI. Pt reports a history of anxiety, OCD symptoms, somatization and depression. Psychiatric Presentation - Psych Issues & Need for Admission Psychiatric Issues:: Anxiety, panic, OCD, depression Past Psychiatric History - Treatment Hx Treatment History: Previously treated for anxiety by PCP at age 25, with several medication trials for anxiety. Pt reports she has been working with Asia Vizcaino at [facility] 2x per month for her anxiety for the past few years, however has found this not to be intensive enough. First hospitalization:: Denies previous hospitalization Most recent hospitalization:: Denies previous hospitalization Medication Trials:: Yes - Paxil ECT Therapy:: No Age of first mental health symptoms: Pt reports first experiencing anxiety and OCD related sx around age 9. She indicates remembering she had always been a worrier and often catastrophized. Pt indicates experiencing urges to engage in compulsive behaviors such as counting her steps, checking locks, and doing things in patterns of three. Pt reports continuing to engage in repetitious behaviors but to a less extend and endorses more pure obsessional sx at present. Reports additionally struggling with some depression following experiencing childhood trauma. Describe (age, circumstance, etc) any past hospitalizations: Denies past psychia tric hospitalizations. Current providers for mental health treatment (counselor, psychiatrist, case sealer, etc.): Currently sees Sahra Vizcaino
--- NOTE | 2019-02-01 10:30 | BH.SGPN.GN ---
Behaviors/Verbalizations/Mental Status: []Client alert and oriented, neatly dressed and groomed. Eye contact good. Motor activity appropriate. Speech within normal limits. Affect congruent, mood anxious. Thoughts linear, logical, no signs of hallucinations or delusions. Client Response/Progress/Benefit: []Client responded well to session, active participant. Client commented on the quote and shared ?we stay stuck because it?s a risk to get better and be vulnerable.? Client reported coming to [facility] was a risk for her, but per her report, it was a good choice. Client appeared to connect with the topic of personal pitfalls and how they can prevent mental health progress. Client shared not using coping skills and unrealistic expectations are examples of a personal pitfall. Client participated in the group activity and took on a leadership role. However, she often used self-deprecating talk and when the group continued to struggle client stated, ?alright can we be done now.? ?The group was able to connect this back to their daily lives and how easy it can be to give up on the path to recovery. Client appeared to benefit from increasing self-awareness of personal pitfalls. Client has shown progress in implementing healthy coping skills to manage intrusive thoughts. However, client continues to report all or nothing thinking that reinforces anxiety and self-doubt.
--- NOTE | 2019-02-01 11:30 | BH.SGPN.GN ---
Behaviors/Verbalizations/Mental Status: []Client alert and oriented, casually dressed and groomed. Eye contact good. Motor activity appropriate. Speech within normal limits. Affect congruent to topic being discussed, mood anxious. Thoughts linear, logical, no signs of hallucinations or delusions. Client Response/Progress/Benefit: []Provided input throughout group discussion and was attentive to others comments and suggestions. Pt completed a worksheet where she identified her own personal pitfalls. Personal pitfalls included: distorted thoughts, intense negative emotions, ignoring or hiding mental health problems because of shame, and reverting back to unhealthy habits. Group worked together to identify strategies to overcome personal and general pitfalls which included; actively participating in mental health treatment, setting realistic expectations, positive self-talk, utilizing support system, reflection on past experiences, identifying coping skills that are effective and not effective, reframing, and challenging negative thoughts. Benefited from identifying personal and general pitfalls and strategies to over these pitfalls. Will continue in IOP to decrease anxiety and prevent decompensation. Staff continues to provide support and education regarding anxiety and intrusive thoughts as well as encourage generalization of healthy coping. Narrative Note: []
--- NOTE | 2019-02-04 09:05 | BH.SGPN.GN ---
Behaviors/Verbalizations/Mental Status: [] Eye contact is good. Motor activity is appropriate. Appearance is casual. Speech is Appropriate. Mood is anxious. Affect is congruent. Thoughts are linear and logical. No evidence of psychosis. Reviewed daily check in sheet and no reports of suicidal ideations or intent. Client Response/Progress/Benefit: [] Pt was an active participant in group discussion. Emotion for today positive. Reports that since returning to work on a reduced schedule her anxiety continues at work however she has not had a panic attack. Utilizes skills while at work. Reports that support and continued treatment in IOP has helped minimize feelings of being overwhelmed at work and at home.Continued to be fearful that panic and anxiety will return. Yesterday she tried a new coping skills which involved accepting anxious thoughts and being more of an observer than trying to force them out. Reports that this was helpful. In the past pt would try to shove the anxiety away which would often led to worsening symptoms and feelings of failure. While skill was helpful in the day it did not work at night when anxiety is most significant. MH symptoms continue in impact functioning. Progress noted. Benefited from group support and encouragement. Will continue with [facility] to prevent decompensation, provided support/treatment while transitioning back to full-time, and to increase coping skills for anxiety. Narrative Note: []
--- NOTE | 2019-02-04 10:05 | BH.SGPN.GN ---
Behaviors/Verbalizations/Mental Status: [] Pt eye contact good, casually dressed, motor activity appropriate, speech normal rate and tone, mood euthymic, congruent affect, thoughts linear and intact, no evidence of delusions or hallucinations. Client Response/Progress/Benefit: []Client responded well to session evidenced by providing input throughout discussion and activity. Client reported situations might be hard at the start but you can grow and learn from your experience. Client shared at work she has had times where she initially viewed a task or project as impossible however with persistence she was able to complete the tasks. Client agreed with peers that viewing situations or tasks as impossible can negatively impact mental health. Client engaged in the group activity and the group did not complete the activity during second group. Despite lack of success, client did not fall into fixed thinking pitfalls and stayed active. Client appeared to benefit from gaining awareness how viewing situations as impossible can negatively impact mental health progress. Client showing progress with reporting utilization of healthy coping skills to manage her anxiety and being able to connect skills discussed in group to her everyday life. Client to continue IOP level of care to maintain gains, continue to work on accepting and working through uncomfortable emotions and prevent decompensation. Narrative Note: []
--- NOTE | 2019-02-04 11:10 | BH.SGPN.GN ---
Behaviors/Verbalizations/Mental Status: [Client maintained good eye contact, casually dressed and appropriate grooming, motor activity appropriate, speech normal rate and tone, mood euthymic and anxious, affect congruent, thoughts linear, logical, no evidence of delusions or hallucinations.]] Client Response/Progress/Benefit: [Pt attentive, did well to participate in discussion and growth mindset reflection activity, providing insight and asking questions throughout. Pt brainstormed with the group on how fixed mindset thoughts experienced in the activity impacted ability to complete the task at hand. Pt indicated that impossible mindset thoughts caused her to become frustrated and begin giving up. Worked to identify important components of a growth mindset such as being open to new perspective and flexibility. Pt expressed having difficulties in using growth mindset thoughts as she often feels the need to be in control. Did well to apply cognitive restructuring to reframe fixed thoughts of ?I?ll always struggle and feel anxious? with growth mindset thought of ?A thought is just a thought and I?ve accomplished bringing myself internal peace, I can do it again?. Benefitted from discussing benefits of growth mindset and strategies for reframing fixed thoughts. Progress in pt ability to challenge doubt related to her ability to continue to make and maintain progress. Continued IOP tx recommended to prevent decompensation, increase application of thought challenge skills, and continue to decrease intensity and severity of anxiety.] Narrative Note: []
--- NOTE | 2019-02-06 09:05 | BH.SGPN.GN ---
Behaviors/Verbalizations/Mental Status: [] Eye contact is good. Motor activity is appropriate. Appearance is casual. Speech is Appropriate. Mood is anxious. Affect is congruent. Thoughts are linear and logical. No evidence of psychosis. Reviewed daily check in sheet and no reports of suicidal ideations or intent. Client Response/Progress/Benefit: [] Pt was an active participant in group discussion. Emotion for today is hyper and excited. Shared that managing her emotions at work is slowly getting better. States I didn't want to run away screaming yesterday. Reports that last week was overwhelming and exhausting at work and home however she beleives that she is starting to find happiness again in her job and is more hopeful. Continues to struggle with high anxiety driving into work however believes that she is adjusting. Sleep and anxiety at night continues to be present. Discussed several coping and thought reframing strategies that she is utilizing which is helping. Progress noted per pt report. Benefited from group support and feedback. Will continue in IOP to maintain gains, prevent decompensation, decreased anxiety, and provide support through transition back to full-time. Narrative Note: []
--- NOTE | 2019-02-06 10:09 | BH.SGPN.GN ---
Behaviors/Verbalizations/Mental Status: []Client alert and oriented, casually dressed and groomed. Eye contact good. Motor activity appropriate. Speech within normal limits. Affect congruent, mood anxious. Thoughts linear, logical, no signs of hallucinations or delusions. Client Response/Progress/Benefit: []Pt receptive of session AEB pt listening to others, taking notes, and providing input at times. Pt appeared to connect with various definitions of resilience provided by the group as well as ideas for how resilience can have positive impacts mental health and wellness. Pt reported accepting you are not perfect is important when it comes to having a flexible mindset. Pt engaged in small group discussion about the various strategies that can help strengthen one's resilience. Pt appeared to connect with others comments about importance of self-awareness to build resilience because if know personal barriers then know what you can do to improve situation. Pt seemed to benefit from increased awareness of various components that can contribute to increased resilience. Continued IOP recommended to prevent decompensation, increase utilization of healthy coping skills, and decrease anxious. Narrative Note: []
--- NOTE | 2019-02-06 11:12 | BH.SGPN.GN ---
Behaviors/Verbalizations/Mental Status: []Client alert and oriented, neatly dressed and groomed. Eye contact good. Motor activity appropriate. Speech within normal limits. Affect congruent, mood euthymic. Thoughts linear, logical, no signs of hallucinations or delusions. Client Response/Progress/Benefit: []Client responded well to session, active participant. Client engaged in the group activity. Client reported at first, she was skeptical that the group could succeed ?I thought it was impossible? however, the group stayed resilient and used different ideas to be successful. Client shared ?we didn?t give up and we were open to each other? which can also help people be resilient in their daily lives. Client was given a stress ball as a reminder of resilience. On her stress ball, client wrote ?I successfully built a family and career despite it all.? Client shared this will remind her of how resilient she has been over the years while struggling with anxiety and intrusive thoughts. Client reported she wants to work on increasing hope and optimism as a way to further improve personal resilience. Client shared she will start keeping track of her past ?wins? and progress. Client appeared to benefit from identifying personal resilience factors. Progress noted as client has returned to work and reports increased ability to manage symptoms. Client to continue IOP to further combat intrusive thinking.
--- NOTE | 2019-02-06 16:10 | BH.TPR ---
Treatment Plan Review Date of Admission:: 01/10/19 Date of Treatment Plan Review:: 02/06/19 Admitting Diagnoses:: Generalized Anxiety Disorder, Depression Unspecified, Obsessive Compulsive Disorder, Somatic Symptom Disorder Current Diagnoses:: Generalized Anxiety Disorder, Depression Unspecified, Obsessive Compulsive Disorder, Somatic Symptom Disorder Patient's Response to Treatment:: Since beginning the [facility] tx program, Pt has displayed active levels of engagement in the treatment process. Pt has maintained consistent attendance. Pt has done well to remain an active participant in both individual and group sessions, provides supportive feedback, and is able to make connections with material presented. Pt has remained consistent with psychiatric medication compliance. Throughout admission in [facility] treatment, she has been willing to actively apply materials discussed in both individual and group sessions, regularly completes homework, and engages in self-reflection. Pt is actively working to step outside her comfort zone in order to better inprove her mental health. Status of Current Problems and Symptoms: Pt has made progress in treatment which is evidenced by DSM5 cross-cutting scales indication of reduced symptoms at 4 weeks as well as self-report. Pt has done well to ?sit with the uncomfortable? and reports decreased use of reassurance seeking or obsessing when having an intrusive thought; however, could continue to benefit from working on this area. Additionally, pt has seen a reduction in panic attacks, as well as severity and duration of anxious thinking. She indicates fewer crying spells, better use of healthy calming and regulation skills in times of distress and continues to work on challenging distorted thought patterns. Pt has displayed consistent difficulties in actively utilizing self-care practices when struggling with an intrusive thought which could be contributing to stress levels and ongoing anxiety Problem #1 Problem Name:: Anxiety, Somatization Status of Goals:: Partially complete. Pt continues to make significant strides in reduction of anxiety sx, though has difficulties with consistency and ongoing struggles in thought challenging in times of discomfort. Obj1- Pt is able to identify a variety of intrusive/ruminating thought patterns and has successfully learn 2-3 strategies to overcome and challenge intrusive thoughts causing rumination. Although she is able to identify thoughts and strategies for challenging intrusive thoughts, pt continues to struggle with consistent utilization of skills independently. Obj 2- Pt reports awareness of anxiety triggers and warning signs however struggles with not seeking reassurance at times, though is actively improving in this area. Pt still needs some work in this area. Team Recommendations:: Client encouraged to continue working on this treatment goal to reinforce healthy coping skills and continue to further decrease symptoms of anxiety and reduce rumination. Client and therapist currently working on thought challenging and practicing calming skills. Will continue IOP tx to maintain gains and continue to decrease Problem #2 Problem Name:: Depression Status of Goals:: Partially complete. Pt is making progress on this objective. Obj 1- Pt is able to actively identify negative self-talk messages however continues to report struggles to replace these thoughts consistently, especially when faced with thoughts related to her past trauma. Obj 2-She is able to identify triggers for depression and self-care skills to improve overall mood and reduce sx; however continues to struggle with consistent skill application and prioritization. Team Recommendations:: Client encouraged to continue working on this treatment goal to reinforce healthy coping skills and continue to further decrease symptoms of depression. Client and therapist currently working on thought challenging and practicing self-care skills. Will continue IOP tx to maintain gains and continue to decrease depression related sx.
--- NOTE | 2019-02-06 16:16 | BH.MDN_ITS ---
Multi-Disciplinary Note - Note 60-min Individual Time Started:: 12:11 Date: 02/06/19 Purpose of session/treatment goals addressed:: Purpose of this session was to support pt with her recent decision to begin addressing past trauma and aid in identifying the impact of her past on current mental health and functioning. Another purpose was to discuss ways to begin applying skills learned in tx to begin practicing self-forgiveness and use of healthy coping skills when experiencing triggers causing anxiety. Other topics discussed: engaging supports, review of midpoint DSM cross-cutting scores. Eye Contact:: Good, Other - tearful throughout Motor Activity:: Appropriate Appearance:: Neat, Casual Speech:: Appropriate Mood:: Anxious, Depressed Affect:: Congruent Thoughts:: Linear, Logical, No evidence of hallucinations/delusions noted Staff Interventions:: Therapist asked open ended and furthering questions to elicit information regarding current sx, stressors, and progress towards tx goals. Provided a safe environment for pt to begin processing emotions surrounding increase insight of impact her trauma history has had on current mental health and coping skills development. Provided basic trauma education and normalized pt concerns, emotions, and frustrations regarding trauma sx. Reviewed strategies for challenging intrusive thoughts, treatment goal progress, and DSM cross-cutting scores at mid-point. Discussed goals for on-going tx. Client Response:: Pt agreeable to session, indicated connecting well with the group topic for today of resilience. When asked to further elaborate she became tearful and expressed that the more she attends the IOP program the more she begins to discover about herself and the various factors impacting her anxiety about the world. Pt expressed beginning to experience realizations that her childhood wasn't as perfect as I made it out to be and that she has been minimizing and denying her own trauma hx. Pt expressed guilt over how she learned to cope with her trauma by minimizing and avoiding. She spent the remainder of the session processing impact of this realization on her current mental health as well as making conections with former and current coping mechanisms. Pt responded well to beginning discussion on basic trauma education and expressed a desire to continue to learn about the impacts of childhood trauma in adulthood, however noted fear of doing to. Discussed the potential benefits of looking into trauma specific counseling following discharge from [facility]. 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 She shared wanting to work through this so as to continue to make strides towards better management of mental health sx. Pt and therapist discussed areas in which she has already shown progress and reviewed DSM cross-cutting scores from admission to present. Pt expressed knowing she has improved in her ability to identify and challenge anxiety producing thoughts and is improving in her ability to apply concepts of mindfulness to her daily routine. Further indicated seeing a reduction in overall sx of depression and shared wanting to work on solidifying consistency of skill application as well as improving communication with supports. Risks/Concerns:: No risks or concerns noted. Pt denies any active SI/HI, plan, or intent as of this date, 02/06/19. Identifies family as major motivations to live. Progress Toward Goals/Plan:: Progress noted AEB pt report of decreased depression and anxiety, as well as improved ability to cope with intrusive thoughts. She discussed that although she continues to struggle with down days and moments of high anxiety, she is more confident in her ability to work through them and return to baseline. Pt reports increased ability to communicate openly with supports, improved desire not only to feel better but do so by actively working through her barriers and changing her behaviors/approaches to distress. Pt additionally expressed increased willingness to confront difficult topics such as past trauma and current fears. Pt DSM score additionally indicate improvements in overall functioning, see Tx plan review. Recommended to continue in IOP tx as she transitions back into full-time employment, improve management of intrusive thoughts causing anxiety, and prevent decompensation. Time Stopped:: 13:06
--- NOTE | 2019-02-08 09:05 | BH.SGPN.GN ---
Addendum entered and electronically signed by MANUEL Beck 10/16/19 09:17: Addendum entered to include missing Group Psychotherapy Session Note #2. Group Topic: []Boundaries # of Participants: []9 Start Time: 10:18am Duration: 52 minutes Spiritual Advisor: MANUEL Jackson-S Goal of Group: []To increase understanding of importance of boundaries and gain awareness of how boundaries can impact mental health. Staff Interventions: Therapist facilitated group discussion about defining boundaries. Therapist led discussion about importance of boundaries, assisting group members with identifying how boundaries can impact mental health. Therapist provided psychoeducation about the different types of boundaries. Therapist led activity to increase self-awareness of current boundary setting behaviors. Behaviors/Verbalizations/Mental Status: Client alert and oriented, casually dressed and groomed. Eye contact fair. Motor activity appropriate. Speech within normal limits. Affect congruent to topic being discussed, mood anxious. Thoughts linear, logical, no signs of hallucinations or delusions. Client Response/Progress/Benefit: Client responded well to session, attentive and participating in small group discussion. Group identified the benefits to setting boundaries as well as the consequences of not setting healthy boundaries. Client reported she struggles with saying ?no? to others because doesn?t want to disappoint others. Client stated she now realizes the importance of engaging in self-care and is able to say ?no? to others if she already has planned self-care to engage in. Client engaged during discussion of the different types of boundaries and engaged in the self-assessment activity. Client seemed to benefit from increased awareness how poor boundaries can negatively impact mental health. Client to continue IOP tx to continue use of healthy coping skills, prevent decompensation, and challenge distorted thoughts. Original Note: Behaviors/Verbalizations/Mental Status: []Client alert and oriented, neatly dressed and groomed. Eye contact fair-eyes red from crying. Motor activity restless. Speech within normal limits. Affect flat, mood dysthymic. Thoughts linear, logical, no signs of hallucinations or delusions. Reviewed client?s symptom tracker, no risk for suicidal ideation, plan, or intent as of 02/08/19. Client Response/Progress/Benefit: []Client responded somewhat well to session, less verbal and connected than previous groups. Client reports feeling ?guilty and detached? today. Client reported she regrets something she said on Monday. Client was tearful, and she declined to go into detail. Therapist provided emotional support and encouraged self-compassion. Client able to identify mental health wins to be completing homework from therapist and working on being more self-aware. Client shared this weekend she plans to keep busy and challenge negative thoughts to manage her current emotions. Client appeared to benefit from connecting with peers and normalizing her guilt. Progress noted as client continues to report consistent use of coping skills, however, client appears to have a recent exacerbation of symptoms and could benefit from ongoing IOP.
--- NOTE | 2019-02-08 15:34 | BH.COMM ---
Communication Note - Communication with Client Communication Note: Pt appearing depressed throughout IOP group session AEB change in affect and demeanor. Agreeable to check-in with this therapsit. Pt indicated struggling with guilt about discussing her past trauma with this therapist in previous session as she feels guilty for not talking to her about it and embarassed about her experiences. Pt and therapist discussed pt concerns and challenged intrusive thoughts causing shame. Normalized pt concerns and addressed pt distortions regarding viewing herself as damaged. Pt did well to begin challenging distortions and identified skills she can use to reduce depression and anxiety if experiencing similar thoughts over the weekend. Identified mindfulness techniques and journaling. Expressed plans to reach out to as well. Denies any active SI, plan, or intent and indicates ability to maintain safety at this time.
--- NOTE | 2019-02-11 11:25 | BH.SGPN.GN ---
Addendum entered and electronically signed by MANUEL Beck 10/16/19 10:27: Addendum entered to include missing Group Psychotherapy Session Note #2. Date: 02/11/19 Start: 1025 Duration: 50 minutes Forensic Chemist: Lalitha Carranza Group Topic: Crisis # of Participants: 10 Goal of Group: To increase understanding of a crisis and improve client?s awareness of personal warning signs before crisis. Staff Interventions: Therapist facilitated group discussion about defining a crisis and specifying various events that are considered a crisis. Therapist led the group in discussion about identifying personal warning signs before a crisis and importance of being aware of those signs. Therapist provided support by using active listening and providing feedback. Behaviors/Verbalizations/Mental Status: Client alert and oriented, casually dressed and groomed. Eye contact fair. Motor activity appropriate. Speech within normal limits. Affect congruent, mood anxious. Thoughts linear, logical, no signs of hallucinations or delusions. Client Response/Progress/Benefit: Client engaged participant as evidenced by client contributing discussion and listening attentively to others. Connected with discussion on how coping with external crisis by using unhealthy coping skills could lead to personal crisis. Client stated when she experiences a crisis, she has difficulty completing her other responsibilities. Client stated ?I can fall apart? when a crisis occurs. Client completed the personal warning signs worksheet and identified crisis warning signs to include: procrastination, unrealistic thoughts, and avoidance. Benefited from group by increasing awareness of crisis and personal warning signs. Will continue IOP tx to increase healthy coping, improve emotional regulation and prevent decompensation. Original Note: Behaviors/Verbalizations/Mental Status: []Client alert and oriented, neatly dressed and groomed. Eye contact good. Motor activity appropriate. Speech within normal limits. Affect constricted, mood anxious. Thoughts linear, logical, no signs of hallucinations or delusions. Client Response/Progress/Benefit: []Client responded well to session as evidenced by client?s contributions to discussion and listening attentively to others. Client identified her warning signs for crisis and gained further awareness of her earliest warning signs. Client?s top three early warning signs were uncontrollable worries, negative thinking, and drop in functioning. Client recognized that awareness of these warning signs can prevent further crisis and help client utilize healthy coping skills to break the cycle. Client created a crisis action plan to help client better manage warning signs for crisis. Client?s plan included coping skills such positive self-talk, ?accepting emotions rather than fighting them,? and healthy distractions. Client selected three items that will help her remember these crisis interventions including a rock, clothespin, and a sticky note with self-forgiveness on it. Client appeared to benefit from creating a crisis action plan and increasing her self-awareness. Client to continue IOP to promote gains and further manage intrusive thinking.
== END 2019-02-12 23:59 ==
LOC: BHIOP 09:00
PROVIDERS: Family Provider Family Medicine; PCP Family Medicine; Referring Provider Psychiatry & Neurology Psychiatry; Visit Provider Psychiatry & Neurology Psychiatry
DX: F41.1 Generalized anxiety disorder (principal); F32.9 Major depressive disorder, single episode, unspecified; F42.2 Mixed obsessional thoughts and acts; F45.1 Undifferentiated somatoform disorder
CPT/HCPCS: H0035; 90832; 90837; 90853

== ENCOUNTER 2019-02-13 09:00 | Outpatient (RCR) | payer OTHER, SELFPAY ==
--- NOTE | 2019-02-13 09:09 | BH.SGPN.GN ---
Behaviors/Verbalizations/Mental Status: [Pt alert and oriented, neat and casual dress, grooming appropriate. Eye contact good. Motor activity appropriate. Speech within normal limits. Affect congruent, mood euthymic, anxious. Thoughts linear, logical, no signs of hallucinations or delusions. Reviewed client?s symptom tracker, no signs of suicidal ideation, plan, or intent as of today.?] Client Response/Progress/Benefit: [Pt was a willing participant in group discussion, providing input and feedback to the group. Emotion for today is content. Pt indicated that she was able to go to her son?s kindergarten registration which was a mental health win as she managed her anxiety throughout the appointment. Discussed additional win as continuing to do well with managing her anxiety as she continues to transition back to work and indicated doing well with preventing stress from becoming unmanageable. Pt noted that her current stressor is managing anxiety when alone as it appears more difficult during these times. She was receptive of group feedback and noted trying mindfulness at night when anxiety gets worse. Pt progress noted in improved use of thought challenge and radical acceptance; however recommended continued IOP tx to further improve use of anxiety management and effective communication skills, as well as to prevent decompensation. ] Narrative Note: []
--- NOTE | 2019-02-13 10:17 | BH.SGPN.GN ---
Behaviors/Verbalizations/Mental Status: [Client alert and oriented, casually and neatly dressed. Eye contact fair to good. Motor activity appropriate. Speech within normal limits. Affect constricted, mood depressed and anxious. Thoughts linear, logical, no signs of hallucinations or delusions. ] Client Response/Progress/Benefit: [Pt responded well to session, actively contributing throughout discussion on stress. Able to recognize that positive aspects of stress include providing encouragement for others. Pt expressed connecting most with impacts of unmanaged stress and reported if a person does not manage stress it can result in overthinking and focusing on the negatives. Pt stated stress can impact a person?s memory, focus, and physical wellbeing. Appeared to benefit from gaining awareness of current stressors and learning about the impact stress has on overall wellbeing. She participated in identifying current stressors impacting her mental health. Pt's current stressors include: fear of failure, not wanting to ?dump responsibilities on others?, her future, her children?s health, and work. Progress noted in improved ability to identify impact of current stressors on mental health and wellbeing, as pt noted that hyper-focusing on stressors reinforces intrusive thoughts and anxiety. Recommended continued IOP tx to maintain stability, continue to promote thought challenging and mindfulness skills for reducing anxiety, as well as use of healthy communication with supports. ] Narrative Note: []
--- NOTE | 2019-02-15 09:10 | BH.SGPN.GN ---
Behaviors/Verbalizations/Mental Status: [] Eye contact is good. Motor activity is appropriate. Appearance is neat. Speech is Appropriate. Mood is euthymic. Affect is full. Thoughts are linear and logical. No evidence of psychosis. Reviewed daily check in sheet and no reports of suicidal ideations or intent Client Response/Progress/Benefit: [] Pt was an active participant in group discussion. Emotion for today is anxious. Shared that she had a positive day at work yesterday. Reports that she is beginning to feel competent again. Discussed several positive interactions from work. Continues to struggle in the AM prior to work and group. States that this is her most difficult time. Using strategies to better manage anxious thoughts in the AM. Progress noted. Benefited from group support and encouragement. Will continue in IOP to prevent decompensation, provide support and treatment during transitions back to work, and to stabilize anxiety. Narrative Note: []
--- NOTE | 2019-02-15 11:20 | BH.SGPN.GN ---
Behaviors/Verbalizations/Mental Status: [Client alert and oriented, casually and neatly dressed, appropriate grooming. Eye contact fair. Motor activity WNL. Speech appropriate rate/tone. Affect congruent, mood depressed and anxious. Thoughts linear, logical, no signs of hallucinations or delusions.] Client Response/Progress/Benefit: [Pt receptive of session, provided some input to discussion and connecting with insights provided by fellow participants. Pt appearing distracted by own thoughts at times but was able to participate in group discussion regarding mental health benefits of change and barriers in making those changes. Noted that change can help to promote personal growth. Pt identified three small personal changes to improve mental health as: decrease need for control, increase self-acceptance, and decrease guilt. Pt appeared to benefit from gaining awareness of personal changes that would improve mental health and the barriers keeping client stuck. Noted one barrier as intrusive thoughts. Recommended continued IOP tx to reduce sx of depression, continue to promote change behaviors, and prevent decompensation.] Narrative Note: []
--- NOTE | 2019-02-15 12:37 | PCM.PN.BLA ---
Progress Note Chief Complaint: The patient is a 38-year old female who is an active participant in the intensive outpatient mental health treatment program at [facility]. She has a long history of problems with anxiety, OCD symptoms, somatization symptoms and depression. History of Present Illness/Interim History: The patient states that she is better this week but had a difficult time last week. She opened up to her therapist about problematic events in childhood. She said the events also involved her sister. She has had a difficult time reliving and confronting these issues. It brought up feelings of guilt. She was obsessing more at nighttime about her childhood experiences and had more difficulty getting to sleep. She expressed demoralization and I provided supportive therapy. This week she reports feeling somewhat better. Her anxiety level has lessened. She recently returned to work and this has helped distract her from her problematic thoughts. Her mood has been better, although she is still depressed. Her health worries have lessened. She is able to pull herself out of negative thinking more easily. She has found the intensive outpatient groups to be helpful. She has not been using Xanax. It has helped some with sleep, but she still wakes up during the night and has difficulty returning to sleep. Current Psychiatric Medications: Paxil 20 mg daily, trazodone 50 mg nightly as needed; not using Xanax Review of Symptoms: Psychiatry: Improving depression, anxiety, and somatic concerns. He is not suicidal. There is no psychosis. She is cognitively intact. Constitutional: She is of overweight build and her weight has been steady. Her energy level is fair. Mental Status Examination: The patient presents as a demoralized woman who is neatly dressed and groomed. She demonstrates good social skills. She becomes tearful during the session. Her thoughts are logical and coherent. Some improvement in depression, anxiety and somatic symptoms. However, she is still symptomatic. He is not suicidal. There is no psychosis. She is cognitively intact. Diagnoses: [] [place] I: Generalized anxiety disorder; panic disorder; depression unspecified; OCD; somatic symptom disorder [place] II: None [place] III: Hypothyroid Plan: I am increasing Paxil to 30 mg daily. I am increasing trazodone to 100 mg nightly. The patient will continue participation in the intensive outpatient program. I will see her again for follow-up. During the session I provided 17 minutes of supportive therapy.
--- NOTE | 2019-02-15 15:00 | BH.MDN ---
Multi-Disciplinary Note - Note 45-min Individual Time Started:: 12:16 Date: 02/15/19 Purpose of session/treatment goals addressed:: Purpose of session was to address pt current stressors and concerns as she was visibly tearful throughout group. Another purpose was to provide support and normalize pt emotions and difficulties in coping with resurfacing trauma memories. Identified strategies for improving sx management and use of healthy coping. Eye Contact:: Good, Other - tearful throughout Motor Activity:: Appropriate Appearance:: Neat Speech:: Appropriate Mood:: Euthymic, Depressed Affect:: Congruent Thoughts:: Linear, Logical, Racing, No evidence of hallucinations/delusions noted Staff Interventions:: Therapist provided a safe and comforting environment for pt to discuss concern and stressors surrounding difficulty in processing resurgence of childhood trauma memories. Applied reflective listening as pt vented emotions and stressors and validated her emotions by responding empathically. Used strengths-based approaches in promoting pt use of positive self-talk and self-compassion. Reframed thoughts at times. Utilized TN techniques to begin identifying barriers in managing trauma related triggers as well as to elicit change behaviors. Provided homework of challenging desire for control by allowing herself to rely on one support to make a decision. Client Response:: Pt reports that she continues to struggle with feeling depressed and overwhelmed by intrusive thoughts following the resurgence of childhood trauma memories and decision to begin understanding the impact of her past trauma on her functioning as an adult. Continuing to ruminate on guilt about not telling her and belief she has made a mistake in bringing up her past trauma as she now feels embarrassed and afraid that her increase in depressive sx have set her back in treatment progress. Ruminates on how her trauma has impacted her ability to be a successful parent and fears being a burden. Increased rumination and depression this week due to such and pt expressed struggling to reframe and challenge thoughts. Talked a great deal about pt ability to decide how much and who she wants to disclose to. Discussed pt decision not to seek trauma processing therapy but identifies the importance of beginning to recognize warning signs and triggers, as well as healthy coping mechanisms when experiencing a trauma trigger. Pt discussed believing past trauma has led to an increased need for control in her relationships and mental health, identified wanting to increase ability to let supports have a part in decision making. Risks/Concerns:: No risks or concerns noted. Denies suicidal ideations, plan, or intent as of this date, 02/15/19. Continue to report intrusive thoughts about fears for the health of her family and what to expect regarding her future which causes increased rumination and anxiety and depression. Reports hope for the future and identifies her children as motivations to live. Progress Toward Goals/Plan:: Some regression this week with limited progress due to increased difficulties in challenging distorted thoughts and difficulties in processing emotions. With increased insight and awareness, pt has begun to increasingly ruminate on the impact of her past on her relationships and ability to cope. Showing insight that recognizing this is the first step to improving her ability to manage triggers and improve relationships and communication. Will continue in IOP to maintain safety, prevent decompensation, and stabilize mood. Time Stopped:: 13:03
--- NOTE | 2019-02-18 09:05 | BH.SGPN.GN ---
Behaviors/Verbalizations/Mental Status: []Client alert and oriented, neatly dressed and groomed. Eye contact good. Motor activity appropriate. Speech within normal limits. Affect congruent, mood euthymic. Thoughts linear, logical, no signs of hallucinations or delusions. Reviewed client?s symptom tracker, no risk for suicidal ideation, plan, or intent as of 02/18/19. Client Response/Progress/Benefit: []Client responded well to session, attentive and engaged throughout. Client reports feeling ?optimistic? today. Client identified one of her positives as being more aware of her feelings and taking care of them rather than suppressing them. Client identified another positive as being proud of her son for ?sticking out his soccer games even though it rained.? Client?s stressor is that she had to work yesterday, but client shared she went outside ?which made it better.? Client appeared to benefit from reflecting on her utilization of coping skills. Progress noted in client?s generalization of coping skills to manage anxiety. Client to continue IOP to further reduce symptoms and increase mood stability.?
--- NOTE | 2019-02-18 10:12 | BH.SGPN.GN ---
Behaviors/Verbalizations/Mental Status: [Pt alert and oriented, casually and neatly dressed. Eye contact fair to good. Motor activity appropriate. Speech within normal limits. Affect congruent, mood dysthymic and anxious. Thoughts linear, logical, no signs of hallucinations or delusions. ] Client Response/Progress/Benefit: [Pt responded well to session, attentive and providing input throughout. Pt connected with discussion on different types of anxiety, as well as the difference between ?normal? anxiety and anxiety disorders. When processing quote pt stated she now realizes how anxiety has held her back from enjoying aspects of her life and impacted her relationships with others. Pt helped the group identify examples of the various ways anxiety manifests and symptoms associated with thoughts, physical symptoms, and safety behaviors. Pt gained awareness of personal physical symptoms which included: tense muscles, pacing, pressure in chest, headaches, and increased body temperature. Pt identified avoiding anxious situations, seeking reassurance, and checking behaviors as safety behaviors pt has engaged in that provide short term relief but increase anxiety over time. Pt appeared to benefit from gaining insight to safety behaviors and how anxiety manifests itself, as well as harmful impact of safety behaviors on mental health. Appears to be progressing with increasing awareness of mental health symptoms and impact on functioning. Will continue IOP to promote continued skill application, challenge distorted thoughts, reduce anxiety, and prevent decompensation.] Narrative Note: []
--- NOTE | 2019-02-18 11:15 | BH.SGPN.GN ---
Behaviors/Verbalizations/Mental Status: []Pt eye contact good, casually dressed, motor activity appropriate, speech normal rate and tone, mood anxious, congruent affect, thoughts linear and intact, no evidence of delusions or hallucinations. Client Response/Progress/Benefit: []Client responded well to session, listening attentively to others and providing input at times. Client identified shaking, feeling on edge, and chest tightness as common physical symptoms she experiences when anxious. Client stated seeking reassurance, isolation and avoidance of situations that can increase her anxiety are her safety behaviors. Client agreed with peers that one cannot prevent anxious thoughts from occurring, but can learn strategies to manage anxiety. Client appeared to connect with mindfulness and the different ways one can practice mindfulness. Client reported she currently uses pacing and taking a walk as her healthy strategies to manage anxiety. Client created a mindfulness ?menu? and reported she plans to try using 5 senses, labeling her anxious thoughts, and diaphragmatic breathing as mindfulness and relaxation techniques to manage anxiety. Client appeared to benefit from practicing in the moment mindfulness techniques. Progress noted as client is showing improved mood and awareness of distorted thoughts. Client to continue IOP level of care to maintain gains, decrease intrusive thoughts and prevent decompensation. Narrative Note: []
--- NOTE | 2019-02-20 09:05 | BH.SGPN.GN ---
Behaviors/Verbalizations/Mental Status: [] Eye contact is good. Motor activity is appropriate. Appearance is neat. Speech is Appropriate. Mood is anxious. Affect is congruent. Thoughts are linear and logical. No evidence of psychosis. Reviewed daily check in sheet and no reports of suicidal ideations or intent. Client Response/Progress/Benefit: [] Pt was an active participant in group discussion. Provided appropriate feedback. Emotion for today is anxious. Restless. Stated that work went well however she did not feel like she had a productive day. Difficult day regarding anxiety at work however stated Nobody is noticing. Following through with household responsibilities. Had a short check-in and appears very anxious AEB constant rocking, tapping leg, and difficulty sitting still. Was very supportive to peer who was dealing with grief reactions. Limited benefit since last session. Benefited from group support and encouragement. Will continue in IOP to prevent decompensation, transition back to full-time work, and stabilize anxiety Narrative Note: []
--- NOTE | 2019-02-20 10:10 | BH.SGPN.GN ---
Behaviors/Verbalizations/Mental Status: [] Eye contact is good. Motor activity is appropriate. Appearance is casual. Speech is Appropriate. Mood is euthymic. Affect is full. Thoughts are linear and logical. No evidence of psychosis. Client Response/Progress/Benefit: [] Pt was an active participant in group discussion and activity. Worked together with the group to define and identify difference between internal and external conflict. Group identified and discussed the benefits of internal/external conflict which includes; helps us get control over things, helps us resolve emotions, we get clarification and closure, helps us solve problems, helps us recognize and manage emotions, can decrease ruminations and stress, and reduces negative consequences of avoiding. Pt worked with group to identify barriers to overcoming conflict which included; thoughts, internal dialogue, our emotions, fear, being unable to control others, and people may not like me if I challenge them. Attentive during psychoeducation on different conflict styles such as avoiding, accommodating, competing, and collaborative. Reviewed benefits and drawbacks to each style. Benefited as she was able to identify and define conflict as well as increase awareness of how conflict style impacts his mental health. Will continue in IOP to prevent decompensation, maintain gains, and transition back to full-time work. Narrative Note: []
--- NOTE | 2019-02-20 11:20 | BH.SGPN.GN ---
Behaviors/Verbalizations/Mental Status: []Client alert and oriented, neatly dressed and groomed. Eye contact good. Motor activity appropriate. Speech within normal limits. Affect congruent-tearful at one point, mood anxious. Thoughts linear, logical, no signs of hallucinations or delusions. Client Response/Progress/Benefit: []Client responded well to session, active participant. Client further processed her conflict resolution style. Client reported she is mostly avoiding, but if she feels she can trust someone she can be collaborating. Client identified benefits of using both styles, however, client recognizes that when she is avoiding it causes ?more internal conflict.? Client shared she avoids due to fear that people will not accept her. Client was encouraged to practice being collaborative during the activity. Client able to be collaborative and assertive. Client stood up for her opinion, even when the group disagreed which is progress. Client helped the group identify things that positively and negatively impact conflict resolution. Client agreed with group that trying to solve numerous problems at once and having different values negatively impacts ability to manage conflict. Client helped the group identify strategies such as challenging assumptions, clarifying, and taking breaks. Client appeared to benefit from learning conflict resolution strategies and increasing self-awareness. Progress noted as client has been able to return to work successfully, however, she continues to struggle with opening up to supports due to fear.
--- NOTE | 2019-02-22 10:12 | BH.SGPN.GN ---
Behaviors/Verbalizations/Mental Status: [Eye contact is good. Motor activity WNL. Appearance is casual. Speech is Appropriate. Mood is anxious, euthymic. Affect is congruent. Thoughts are linear and logical. No evidence of psychosis.] Client Response/Progress/Benefit: [Pt was an active participant in group activity and discussion. Worked with the group to define anger and its causes, as well as the internal and external impacts of anger. Completed worksheet identifying personal impacts of unhealthy anger which included; stress and anxiety, shame, shutting down, and increased ruminations. Pt reports external impact of unhealthy anger as; relationship issues, occupational stress, and miscommunication. Benefited from group by increasing awareness of the internal and external impacts of unhealthy anger. Progress noted in pt ability to identify her own anger related responses and the impact this has on her mental health. Continued IOP tx to maintain gains, continue to promote healthy skill application, and prevent decompensation. ] Narrative Note: []
--- NOTE | 2019-02-22 16:24 | BH.MDN ---
Multi-Disciplinary Note - Note 60-min Individual Time Started:: 12:20 Date: 02/22/19 Purpose of session/treatment goals addressed:: Purpose of this session was to assess current symptoms, stressors, and tx progress. Another purpose was to discuss return to work and review strategies for coping with anxiety in the work place. Eye Contact:: Good Motor Activity:: Appropriate Appearance:: Neat, Casual Speech:: Appropriate Mood:: Euthymic, Anxious Affect:: Congruent Thoughts:: Linear, Logical, No evidence of hallucinations/delusions noted Staff Interventions:: Therapist asked open ended and furthering questions to gather additional information regarding pt's current symptoms, stressors, and progress in treatment. Therapist used empathic responses to provide emotional validation. Therapist applied [place] techniques to promote healthy change behaviors and complete a workplace anxiety management plan. Client Response:: Pt open to meeting with this therapist and engaged throughout session. She reports that she has been trying to challenge her anxious thoughts associated with being back at work. Shared that she has been reminding herself to take things ?one moment at a time? and that she can use her skills to work through anxieties. Shared improved ability to sit with the uncomfortable. Discussed that she has been thinking about taking time to make she engages in self-care. Expressed use of ?mini brain-breaks? as potentially helpful as well. Indicated that she is doing more to recognize warning signs and triggers as well which has aided in reducing unnecessary anxieties. Open to working with therapist to identify ways to better communicate and advocate for her needs while in the workplace. Risks/Concerns:: None. Denied having any active suicidal ideations, plan, or intent as of this date. Progress Toward Goals/Plan:: Progress noted. Pt indicates increased ability to manage sx of anxiety and depression. Noted that she has seen improvements in ability to reach out to supports and is seeking less reassurance of anxious thoughts. Increased engagement in self-care activities as well. Continues to report intrusive thoughts and trauma triggers but has improved in ability to overall manage these. Will continue IOP tx to prevent decompensation, improve anxiety management, and increase mood stability.
--- NOTE | 2019-02-25 09:05 | BH.SGPN.GN ---
Behaviors/Verbalizations/Mental Status: []Client alert and oriented, neatly dressed and groomed. Eye contact good. Motor activity appropriate. Speech within normal limits. Affect congruent, mood euthymic, anxious. Thoughts linear, logical, no signs of hallucinations or delusions. Reviewed client?s symptom tracker, no risk for suicidal ideation, plan, or intent as of 02/25/19. Client Response/Progress/Benefit: []Client responded well to session, attentive and provided supportive feedback. Client reports feeling ?anxious but hopeful? today. Client shared she has been doing better with utilizing her coping skills, but she continues to struggle with ?normal anxious thoughts.? The group empathized with client and helped normalize her anxious thoughts. Client identified her current positives which included being able to ?catch myself before spiraling,? making cookies with her children, and making dinner for her family. Client appeared to benefit from normalizing her emotions and reflecting on her use of coping skills which improved her daily functioning. Progress noted in generalization of coping skills to regulate her anxiety. Will continue IOP to further promote gains and improve daily functioning.
--- NOTE | 2019-02-25 10:15 | BH.SGPN.GN ---
Behaviors/Verbalizations/Mental Status: [] Eye contact is good. Motor activity is appropriate. Appearance is casual. Speech is Appropriate. Mood is anxious. Affect is congruent. Restless at times. Thoughts are linear and logical. No evidence of psychosis. Client Response/Progress/Benefit: [] Pt was an active participant in group discussion and activity. Attentive during psychoeducation. Worked with the group to identify benefits to making changes in our lives which included; growth, new opportunities, new experiences, improved relationships, getting ourself out of our comfort zones, increasing our adaptability, and building confidence. Group then identified barriers to change or what keeps us from making changes which included; change can be risky, fear of the unknown, fear of failure, negative thinking, what if thinking, anxiety, and change is scary. Pt participated along with group in activity where they identified and discussed the emotions related to change. Benefited from increased awareness and understaging of emotions, benefits, and barriers related to change. Will continue in IOP to maintain gains. Narrative Note: []
--- NOTE | 2019-02-25 11:17 | BH.SGPN.GN ---
Behaviors/Verbalizations/Mental Status: [Pt alert and oriented, casual and neat dress, grooming appropriate. Eye contact good. Motor activity appropriate. Speech within normal limits. Affect congruent, mood euthymic, anxious. Thoughts linear, logical, no signs of hallucinations or delusions.] Client Response/Progress/Benefit: [Pt responded well to session, active participant and providing insight throughout discussion. Participated in the challenge activity and helped the group process barriers associated with making change. Pt reported that lack of effective communication and doubt were barriers, whereas support and creating a plan helped the group adapt to change. Pt appeared to connect with discussion regarding overcoming the costs of change by identifying potential benefits via decisional balance sheet. Identified a change she would like to make to improve mental health. Pt?s goal is to increase acceptance of her symptoms to be better equipped to work through them. Pt reported potential benefits of change as: feeling a sense of relief and freedom. Costs of not making the change included: dealing with an ?endless cycle of thoughts and worries?. Pt continues to struggle with becoming anxious about her anxiety and reinforcing anxiety provoking thoughts. Progress noted in pt ability to identify MH benefits of change, however recommended continued IOP to maintain progress, increase healthy coping skill repertoire, and decrease anxiety.] Narrative Note: []
--- NOTE | 2019-02-26 09:10 | BH.SGPN.GN ---
Behaviors/Verbalizations/Mental Status: [] Eye contact is good. Motor activity is appropriate. Appearance is casual. Speech is Appropriate. Mood is anxious. Affect is congruent. Thoughts are linear and logical. No evidence of psychosis. Reviewed daily check in sheet and no reports of suicidal ideations or intent. Client Response/Progress/Benefit: [] Pt was an active participant in group discussion. Provided appropriate feedback. Emotion for today is anxious. Shared that she was able to identify several warning signs to anxiety and distress yesterday. Rather than isolate and ruminate she reached out to support. This has been difficulty in the past as she does not want to burden family with her issues. Reached out to and the encounter was helpful and positive. Progress noted. Utilizing skills despite feeling uncomfortable. Benefited from group support and feedback. Will continue in IOP to provide support, prevent decompensation, maintain gains, and continue to emphasize use of coping skills w/o aid of others. Narrative Note: []
--- NOTE | 2019-02-26 10:15 | BH.SGPN.GN ---
Behaviors/Verbalizations/Mental Status: []Client alert and oriented, neatly dressed and groomed. Eye contact good. Motor activity appropriate. Speech within normal limits. Affect constricted, mood anxious. Thoughts linear, logical, no signs of hallucinations or delusions. Client Response/Progress/Benefit: Client responded well to session, positive contributions and positive feedback. Client indicated connecting with the topic of cognitive distortions and shared ?you have to accept yourself and your thoughts rather than fix them.? Client provided reassurance to peers that learning to combat cognitive distortions and reframe thoughts becomes easier. Client participated in the discussion of how negative thoughts impact one?s mental health and relationships. Client agreed with peers that cognitive distortions reinforce anxiety and keep people from making progress. Client contributed as the group defined and reflected upon various types of distortions. Client shared she has used all or nothing thinking, catastrophizing, and discounting the positives. Client shared she has been getting better with catching negative thought before ?I go into a spiral.? Client benefitted from increasing awareness of cognitive distortions and how they can impact emotions and behaviors. Progress noted as client reports increased use of coping skills and reduced anxiety. However client continues to struggle with negative self-talk and processing past trauma.
--- NOTE | 2019-02-26 11:20 | BH.SGPN.GN ---
Behaviors/Verbalizations/Mental Status: [Client alert and oriented, casually dressed, hygiene well tended to. Eye contact good. Motor activity appropriate. Speech within normal limits. Affect congruent, mood dysthymic and anxious. Thoughts linear, logical, no signs of hallucinations or delusions.] Client Response/Progress/Benefit: [Pt responded well to session, providing input throughout. Pt engaged in the discussion reviewing various types of distortions as well as impact they have on mental health. Shared connecting with distortion of catastrophizing and provided an example of times she has used this distortion when her kids were young. Pt helped the group practice challenging the example cognitive distortions and did well to identify evidence against negative thoughts. Pt assisted the group in learning ways to combat negative thinking and stated she plans to use radical acceptance and mindfulness. Appeared to benefit from practicing thought challenging and gaining awareness of the effort it takes to reframe negative thoughts. Progress noted as client reports more consistent application of skills for learning to accept and cope with intrusive thoughts. Pt to continue IOP to promote gains and further increase self-confidence.] Narrative Note: []
--- NOTE | 2019-03-01 07:38 | BH.AFTERPLAN ---
Aftercare Plan - Demographics Treatment End Date:: 03/01/19 Psychiatrist:: Taj Arndt Psychiatrist Office #:: [phone] [facility]/IOP Therapist:: Elise eDutsch Therapist Phone #:: [phone] - Medications Home Medications: Home Medications Levothyroxine Sodium [Levoxyl] 50 mcg PO DAILY 12/09/18 ferrous sulfate 325 mg (65 mg iron) tablet 325 mg PO DAILY tab 12/14/18 fluoxetine 20 mg capsule 20 mg PO DAILY 30 Days #30 cap 12/14/18 - Plan Details Progress/Aftercare Plan Details:: Charlette, you have shown significant progress and come such a long way throughout your time in the program. Since beginning IOP you have done well to really put in the hard work and begin accepting your anxiety and working through it. You have done well to identify distortions when using them, decreased use of reassurance seeking, and applied mindfulness strategies to aid in managing your anxiety. Throughout your time in the program you have actively applied the skills you?ve learned and it is evident in your levels of improvement. Although it may feel like you are still struggling, don?t discredit how far you?ve come. Charlette, it takes a lot to begin addressing the hard stuff and the fact that you have made the decision to no longer avoid it is a huge step forward. You have shown progress in not only increasing self-awareness and learning coping skills, but also implementing these strategies daily. Your motivation throughout IOP which is likely the reason for your significant progress, remember to keep track of the wins. You have come far in your ability to challenge the negative thoughts, apply healthy coping skills, manage emotions, and work through anxiety triggers. Good [place]! Strategies for Success:: 1. Keep actively engaged! Continue to connect with supports and stay in activities that are meaningful to you. 2.Utilize supports! Remember how far you have come and that your supports have stood by you along the way! I know it?s hard not to worry about judgement but remember how important it is maintain those healthy relationships. 3. Keep up with positive self-talk. Remember I've been through this before, I can do it again. Talk yourself through those false alarms, continue with what you are doing, and remind yourself that the feeling is only temporary. 4. Continue doing positive visualization and thought stopping. When experiencing a trigger use your 5 senses remind yourself to remain present so you don?t get stuck in your own head. 5. Recognize what you're experiencing isn't permanent- even when it feels strong. 6. Challenge those negative thoughts as they come up! 7. Self-awareness and self-care! Continue to pay attention to warning signs, triggers, and stress level. Remember to remain aware of the triggers for sticky thoughts. Continue to engage in different areas of self-care and take time to fill your cup. 8. When it doubt, talk and plan it out! Stress can seem insurmountable, but you have learned to process and create small steps to manage stress. 9. Opposite action! When feeling like you want to isolate-reach out, when feeling angry-deep breath. 10. Give yourself credit! You have come so far, and we are all very proud of you! - Appointments Appointments/Referrals to Other Services:: 1. Follow up with Asia Vizcaino next appointment. 2. Follow up with your PCP for psychiatry until you are able to establish with an outpatient psychiatrist.
--- NOTE | 2019-03-01 08:14 | BH.IGGP_ITS ---
Aftercare Plan - Demographics Treatment End Date:: 03/01/19 Psychiatrist:: Taj Arndt Psychiatrist Office #:: [phone] [facility]/IOP Therapist:: Elise Deutsch Therapist Phone #:: [phone] - Medications Home Medications: Home Medications Levothyroxine Sodium [Levoxyl] 50 mcg PO DAILY 12/09/18 ferrous sulfate 325 mg (65 mg iron) tablet 325 mg PO DAILY tab 12/14/18 fluoxetine 20 mg capsule 20 mg PO DAILY 30 Days #30 cap 12/14/18 - Plan Details Progress/Aftercare Plan Details:: Charlette, you have shown significant progress and come such a long way throughout your time in the program. Since beginning IOP you have done well to really put in the hard work and begin accepting your anxiety and working through it. You have done well to identify distortions when using them, decreased use of reassurance seeking, and applied mindfulness strategies to aid in managing your anxiety. Throughout your time in the program you have actively applied the skills you?ve learned and it is evident in your levels of improvement. Although it may feel like you are still struggling, don?t discredit how far you?ve come. Charlette, it takes a lot to begin addressing the hard stuff and the fact that you have made the decision to no longer avoid it is a huge step forward. You have shown progress in not only increasing self- awareness and learning coping skills, but also implementing these strategies daily. Your motivation throughout IOP which is likely the reason for your significant progress, remember to keep track of the wins. You have come far in your ability to challenge the negative thoughts, apply healthy coping skills, manage emotions, and work through anxiety triggers. Good [place]! Strategies for Success:: 1. Keep actively engaged! Continue to connect with supports and stay in activities that are meaningful to you. 2.Utilize supports! Remember how far you have come and that your supports have stood by you along way! I know it?s hard not to worry about judgement but remember how important it is maintain those healthy relationships. 3. Keep up with positive self-talk. Remember I've been through this before, I can do it again. Talk yourself through those false alarms, continue with what you are doing, and remind yourself that the feeling is only temporary. 4. Continue doing positive visualization and thought stopping. When experiencing a trigger use your 5 senses remind yourself to remain present so you don?t get stuck in your own head. 5. Recognize what you're experiencing isn't permanent- even when it feels strong. 6. Challenge those negative thoughts as they come up! 7. Self-awareness and self-care! Continue to pay attention to warning signs, triggers, and stress level. Remember to remain aware of the triggers for sticky thoughts. Continue to engage in different areas of self-care and take time to fill your cup. 8. When it doubt, talk and plan it out! Stress can seem insurmountable, but you have learned to process and create small steps to manage stress. 9. Opposite action! When feeling like you want to isolate-reach out, when feeling angry-deep breath. 10. Give yourself credit! You have come so far, and we are all very proud of you! - Appointments Appointments/Referrals to Other Services:: 1. Follow up with Asia Monique next appointment. 2. Follow up with your PCP for psychiatry until you are able to establish with an outpatient psychiatrist.
--- NOTE | 2019-03-01 08:14 | BH.DS ---
Discharge Summary - Demographics Date of Admission:: 01/10/19 Discharge Date: 03/01/19 Presenting Problems at Admission:: The patient is a 38-year old female who was referred for treatment in the intensive outpatient mental health treatment program by her outpatient therapist at [facility]. Pt referred for increased anxiety and depression resulting in panic attacks on an almost daily basis, difficulties managing anxiety at work leading to taking a leave, decreased sleep, depression, and passive SI. Pt reports a history of anxiety, OCD symptoms, somatization and depression. Discharge Diagnoses:: Generalized anxiety disorder; panic disorder; depression unspecified; OCD; Somatic Symptom Disorder Reason for Discharge:: Client has accomplished her [facility] treatment goals as evidenced by her reduced DSM-5 scores, no longer reports suicidal ideation, and indicates reduced intensity of mental health symptoms. For these reasons client no longer meets [facility] level of care. - Treatment Progress During Treatment & Response: Charlette, has shown significant progress throughout her time in the IOP program. Since admission she has done well to put effort into improving her mental health and has begun accepting her anxiety as something that she can work through rather than deny or avoid. While in the program, Charlette has maintained consistent attendance and been actively engaged in both individual and group sessions. She has done well to identify distortions when using them, decreased use of reassurance seeking, and applied mindfulness strategies to aid in managing your anxiety. Charlette has additionally made the decision to begin processing her trauma history with her outpatient therapist and is making strides in increasing awareness of triggers and warning signs associated. Throughout her time in the program she has strived to actively apply the skills learned which is evident in her levels of improvement. This is evidenced by strong reductions in depression and anxiety AEB her DSM-5 [place] Assessment scores. At admission, Charlette scored an overall 42/ 94 and dropped to a score of 12/94. In the area of depression, pt decreased scores from 6/8 to a 2/8 and reports experiencing no SI. Pt additionally displayed drops in level of anxiety with overall scores decreasing from a 9/12 at intake to a score of 3/12. No longer reports any unexplained aches and pains, is sleeping more consistently through the night ( 4/4 to a 1/4), and has reduced reduced OCD related tendancies from 5/8 to a 3/8. Issues Still to be Addressed:: Pt has shown progress with accomplishing IOP goals and incorporating healthy coping and mindfulness skills into her daily routine to manage symptoms of OCD, anxiety, and depression. However, can continue to benefit from ongoing work on improving self-esteem, improving management of intrusive thoughts and ruminations, and reducing guilt causing anxiety which will improve familial and social functioning. Discharge Recommendations/Instructions:: 1. Follow up with Asia Vizcaino next appointment. 2. Follow up with your PCP for psychiatry until you can establish with an outpatient psychiatrist. Discharge Handout: Complete Discharge Handout with client on aftercare options and continuity of care.
--- NOTE | 2019-03-01 09:12 | BH.SGPN.GN ---
Behaviors/Verbalizations/Mental Status: [Eye contact is good. Motor activity is appropriate. Appearance is neat and casual. Speech is Appropriate. Mood is euthymic, anxious. Affect is congruent. Thoughts are linear and logical. No evidence of psychosis. Reviewed daily check in sheet and no reports of suicidal ideations or intent.] Client Response/Progress/Benefit: [Pt was an active participant in group discussion, providing input and supportive feedback throughout. Emotion for today is excited but worried. Identified mental health wins as this being pt last day. She reflected upon progress in improving practicing self-care via recognizing warning signs and triggers and applying healthy skills to better cope with anxiety. Additional win identified as being able to go out and see some friends she has not seen in a while. States current stressor as anxiety about her ability to maintain stability after leaving the IOP program. Did well to reflect upon skills she may use in order to do so. Reports insight regarding potential strategies that may aid in improving anxiety management, increase ability to cope with intrusive thoughts, and prevent escalating to point of crisis. Identified ?It?s okay to struggle sometimes, I can work through this? as important to remind herself moving forward. Benefited from group support and encouragement. Will discharge from IOP to lower level of care via outpatient counseling to prevent decompensation, maintain gains, and continue to improve anxiety management and self-confidence.] Narrative Note: []
--- NOTE | 2019-03-01 10:25 | BH.SGPN.GN ---
Behaviors/Verbalizations/Mental Status: [Client alert and oriented, neatly dressed and groomed. Eye contact good. Motor activity appropriate. Speech within normal limits. Affect congruent, mood euthymic. Thoughts linear, logical, no signs of hallucinations or delusions. ] Client Response/Progress/Benefit: [Client engaged participant as shown by client?s contribution to discussion and helpful insight. Client participated in the discussion of the common myths about self-care including self-care is selfish, easy, makes us weak, and always fun. Indicated struggling with the myth that self-care is time consuming as she often has difficulties prioritizing it. Client worked with group to debunk the myths about self-care. Client stated she believes self-care is essential in order to better manage anxiety and have healthy relationships. Client seemed to benefit from increased awareness of the importance of self-care. Client showing progress as shown by continued improvements in consistent use of healthy skills and reports of decreased anxiety and rumination. Will discharge from IOP tx, encouraged to continue with outpatient therapy to continue to identify and challenge distorted thoughts, maintain gains, further promote application of healthy coping skills, and prevent decompensation.] Narrative Note: []
--- NOTE | 2019-03-01 11:25 | BH.SGPN.GN ---
Behaviors/Verbalizations/Mental Status: [] Eye contact is good. Motor activity is appropriate. Appearance is casual. Speech is Appropriate. Mood is euthymic. Affect is full. Thoughts are linear and logical. No evidence of psychosis. Client Response/Progress/Benefit: [] Pt was attentive as well as an active participant in group discussion. Group identified barriers to completing self-care which included; leaving comfort zone, it takes effort, we avoid caring for ourselves when we are struggling, we depend on others to make us feel better, belief that self-care is selfish, feel guilt when caring for self, and time constraints. Attentive during psychoeducation on types of self care which are spiritual, physical, emotional, social, financial, psychological, and professional. Pt discussed her balance of self-care and group brainstormed strategies to overcome barriers to utilizing self-care strategies consistency. Benefited from assessing current self-care balance and developing strategies to overcome barrier to self-care. Will discharge from IOP today. Narrative Note: []
--- NOTE | 2019-03-04 15:39 | BH.DS_ITS ---
Discharge Summary - Demographics Date of Admission:: 01/10/19 Discharge Date: 03/01/19 Presenting Problems at Admission:: The patient is a 38-year old female who was referred for treatment in the intensive outpatient mental health treatment program by her outpatient therapist at [facility]. Pt referred for increased anxiety and depression resulting in panic attacks on an almost daily basis, difficulties managing anxiety at work leading to taking a leave, decreased sleep, depression, and passive SI. Pt reports a history of anxiety, OCD symptoms, somatization and depression. Discharge Diagnoses:: Generalized anxiety disorder; panic disorder; depression unspecified; OCD; Somatic Symptom Disorder Reason for Discharge:: Client has accomplished her [facility] treatment goals as evidenced by her reduced DSM-5 scores, no longer reports suicidal ideation, and indicates reduced intensity of mental health symptoms. For these reasons client no longer meets [facility] level of care. - Treatment Progress During Treatment & Response: Charlette, has shown significant progress throughout her time in the IOP program. Since admission she has done well to put effort into improving her mental health and has begun accepting her anxiety as something that she can work through rather than deny or avoid. While in the program, Charlette has maintained consistent attendance and been actively engaged in both individual and group sessions. She has done well to identify distortions when using them, decreased use of reassurance seeking, and applied mindfulness strategies to aid in managing your anxiety. Charlette has additionally made the decision to begin processing her trauma history with her outpatient therapist and is making strides in increasing awareness of triggers and warning signs associated. Throughout her time in the program she has strived to actively apply the skills learned which is evident in her levels of improvement. This is evidenced by strong reductions in depression and anxiety AEB her DSM-5 Cross- [place] Assessment scores. At admission, Charlette scored an overall 42/ 94 and dropped to a score of 12/94. In the area of depression, pt decreased scores from 6/8 to a 2/8 and reports experiencing no SI. Pt additionally displayed drops in level of anxiety with overall scores decreasing from a 9/12 at intake to a score of 3/12. No longer reports any unexplained aches and pains, is sleeping more consistently through the night ( 4/4 to a 1/4), and has reduced reduced OCD related tendancies from 5/8 to a 3/8. Issues Still to be Addressed:: Pt has shown progress with accomplishing IOP goals and incorporating healthy coping and mindfulness skills into her daily routine to manage symptoms of OCD, anxiety, and depression. However, can continue to benefit from ongoing work on improving self-esteem, improving management of intrusive thoughts and ruminations, and reducing guilt causing anxiety which will improve familial and social functioning. Discharge Recommendations/Instructions:: 1. Follow up with [facility] Vizcaino next appointment. 2. Follow up with your PCP for psychiatry until you can establish with an outpatient psychiatrist. Discharge Handout: Complete Discharge Handout with client on aftercare options and continuity of care.
== END 2019-03-01 14:00 | disposition home or self-care (01) ==
LOC: BHIOP 09:00
PROVIDERS: Family Provider Family Medicine; PCP Family Medicine; Referring Provider Psychiatry & Neurology Psychiatry; Visit Provider Psychiatry & Neurology Psychiatry
DX: F41.1 Generalized anxiety disorder (principal); F41.0 Panic disorder [episodic paroxysmal anxiety]; F32.9 Major depressive disorder, single episode, unspecified; F42.9 Obsessive-compulsive disorder, unspecified; F45.9 Somatoform disorder, unspecified; E03.9 Hypothyroidism, unspecified; Z79.899 Other long term (current) drug therapy
CPT/HCPCS: H0035; 90834; 90837; 90853

== ENCOUNTER 2020-01-15 08:40 | Emergency (ER) | payer BC, SELFPAY ==
[2020-01-15 08:42] VITALS: BP 128/79; PULSE 120; RESP 16; TEMP 35.6; O2SAT 98; BMI 31.0
[2020-01-15 09:03] VITALS: BP 128/79; PULSE 120; RESP 16; TEMP 35.6; O2SAT 98
--- NOTE | 2020-01-15 09:07 | ED.VIS.GEN ---
History of Present Illness Chief Complaint: Bite Informant: Patient Onset: Yesterday Narrative: Yesterday morning the patient was bit by a kitten on her right index finger. She did a virtual visit and was prescribed Augmentin. She states the redness has spread up onto the hand. No fevers. She notes some drainage from the dorsum of the right PIP joint of the index finger. Past Medical History - Allergies and Home Meds Allergies/Adverse Reactions: Allergies No Known Allergies Allergy (Verified 01/15/20 08:42) Primary Care Physician: Jayden Knapp MD [NON-STAFF] - 3-5 Days if not improving Smoking Status: Never smoker Review of Systems General: Denies: Chills, Fever, Sweats Eyes: Denies: Visual changes - bilaterally, Diplopia ENT: Denies: Rhinorrhea, Sore throat Cardiovascular: Denies: Chest pain, Palpitations Respiratory: Denies: Dyspnea, Cough, Dyspnea on exertion Gastrointestinal: Denies: Abdominal pain, Nausea, Vomiting, Diarrhea, Melena, Hematochezia Genitourinary: Denies: Dysuria, Hematuria, Frequency Musculoskeletal: Denies: Back pain, Extremity Pain Skin: Reports: Rash, Wounds Neurological: Denies: Headache, Weakness, Numbness Physical Exam Vital Signs/Narrative: Vital Signs Temp Pulse Resp BP Pulse Ox 01/15/20 09:03 96.1 F L 120 H 16 128/79 H 98 01/15/20 08:42 96.1 F L 120 H 16 128/79 H 98 General: Well nourished, Well developed, No Acute Distress Head: Normocephalic, Atraumatic Eyes: Perrl, EOMI ENT: Moist mucous membranes, No rhinorrhea Neck: Supple, Nontender Cardiovascular: Regular rate, Regular rhythm, No murmurs Respiratory: No distress, CTA bilaterally, Chest nontender Abdomen: Soft, Nontender, Nondistended, Normal bowel sounds Back: Nontender, Normal Inspection Extremities: - - Right index finger demonstrates diffuse swelling and erythema. I do not appreciate any drainage from the puncture site at the PIP joint either on the volar surface or on the dorsum. Redness extends up to include the MCP joint of the index finger and medially to the right long fingers MCP joint. There is no pain with flexion or extension. Motion does seem limited by swelling. There is no lymphangitic streaking. Skin: Normal color, No rash Neurological: Alert, Oriented x3, Cranial nerves II-XII grossly intact, Normal Strength, Normal Sensation Psychological: Normal affect, Normal Mood Diagnostic/Tx/Re-eval - Medical Decision Making X-rays of the hand did not demonstrate any foreign body or air. At this point the patient has obvious cat bite cellulitis. I have low suspicion of tendon involvement. She has only been on antibiotics now for about 24 hours. We recommend that she continue the antibiotics. If the redness extends beyond her surgical marking or she is worsening she should return to the emergency department. Patient understands the plan. ED Disposition - Plan for ED Patient: Disposition: Home or Assisted Living Diagnosis: Cat bite of finger, Cellulitis Instructions: ED Bite Cat Referrals: Jurgen De La Rosa MD [STAFF PHYSICIAN] - 2 Days for wound check
--- NOTE | 2020-01-15 09:15 | RAD_ITS ---
STUDY: X-RAY - RIGHT HAND REASON FOR EXAM: Female, 39 years old. KITTEN BITE TO RT INDEX. PT STARTED [facility]B YESTERDAY, RED AREA IS SPREADING. TECHNIQUE: 3 view(s) of the hand. COMPARISON: None. FINDINGS: Normal radiocarpal articulation. Normal distal radioulnar joint. Normal visualized carpal bones. Normal carpal articulations Normal carpometacarpal articulation of the thumb. Normal second through fifth carpometacarpal joints. Normal metacarpi. Normal metacarpophalangeal joint of the thumb. Normal interphalangeal joint of the thumb. Normal proximal and distal phalanges of the thumb. Normal metacarpophalangeal joints of the second through fifth fingers. Normal proximal and distal interphalangeal joints of the second through fifth fingers. Normal phalanges of the second through fifth fingers. The soft tissue structures are unremarkable. RAD/Hand Min 3 Views IMPRESSION: Normal x-ray examination of the hand. Electronically Signed: Fernando Paredes, at 9:36 EDT , Service support ,
== END 2020-01-15 10:22 | disposition home or self-care (01) ==
PROVIDERS: Emergency Provider Emergency Medicine; PCP Family Medicine
DX: S61.230A Puncture wound without foreign body of right index finger without damage to nail, initial encounter (principal); L03.113 Cellulitis of right upper limb; W55.01XA Bitten by cat, initial encounter; Y93.9 Activity, unspecified; Y92.9 Unspecified place or not applicable
CPT/HCPCS: 73130; 99282

== ENCOUNTER 2021-02-03 07:29 | Outpatient (RCR) | payer BC, SELFPAY ==
[2020-02-20 09:30] VITALS: BMI 31.0
[2021-02-03] MEDS: COVID-19 VACC, MRNA(PFIZER)/PF 30 MCG/0.3 ML SYRINGE IM (12:42)
[2021-02-24] MEDS: COVID-19 VACC, MRNA(PFIZER)/PF 30 MCG/0.3 ML SYRINGE IM (12:58)
== END 2021-03-23 23:59 ==
LOC: IMMUN 07:29
PROVIDERS: PCP Family Medicine; Referring Provider Family Medicine; Visit Provider Family Medicine
DX: Z23 Encounter for immunization (principal)
CPT/HCPCS: 0001A; 0002A; 91300

== ENCOUNTER → 2021-06-23 12:22 | Outpatient (CLI) | payer BC, SELFPAY ==
--- NOTE | 2021-06-23 13:12 | US_ITS ---
STUDY: RENAL ULTRASOUND - COMPLETE REASON FOR EXAM: Female, 41 years old. UTI TECHNIQUE: Ultrasound evaluation of the kidneys was performed with real-time and static serrano-scale imaging. COMPARISON: None. FINDINGS: RIGHT KIDNEY: Normal location of the right kidney, which is normal in size. The right kidney measures 10 x 5 x 4.6 cm. There is a normal cortex of the right kidney. The renal cortex measures 1.5 cm. There is no right renal mass or cyst. There are no right renal calculi. There is no right hydronephrosis. DISTAL RIGHT URETER: There is non-visualization of the distal right ureter. There is no demonstrated right ureterovesical junction calculus. There is a visualized right ureteral jet. LEFT KIDNEY: Normal location of the left kidney, which is normal in size. The left kidney measures 10.5 x 4.6 x 4.8 cm. There is a normal cortex of the left kidney. The renal cortex measures 1.4 cm. There is no left renal mass or cyst. There are no left renal calculi. There is no left hydronephrosis. DISTAL LEFT URETER: There is non-visualization of the distal left ureter. There is no demonstrated left ureterovesical junction calculus. There is a visualized left ureteral jet. BLADDER: The distended urinary bladder has a volume of 109 ml. There is a normal wall thickness of the distended urinary bladder. There is no demonstrated mass within the urinary bladder. There are no demonstrated bladder calculi. US/Kidney and Bladder IMPRESSION: Normal ultrasound of the kidneys and urinary bladder. Electronically Signed: Patrice Medrano MD at 1:52 EDT Tel , Service support ,
== END ==
PROVIDERS: PCP Family Medicine; Referring Provider Urology; Visit Provider Urology
DX: N39.0 Urinary tract infection, site not specified (principal)
CPT/HCPCS: 76770

== ENCOUNTER 2021-12-03 10:20 | Outpatient (CLI) | payer BC, SELFPAY ==
[2021-12-10 11:57] LABS: HPV Reflexed? NOT INDICATED
== END 2021-12-03 23:59 | disposition home or self-care (01) ==
LOC: LABSPEC 10:25
PROVIDERS: PCP Family Medicine; Visit Provider Obstetrics & Gynecology
DX: Z12.4 Encounter for screening for malignant neoplasm of cervix (principal)
CPT/HCPCS: 88175; G0145

== ENCOUNTER 2022-01-31 14:56 | Outpatient (CLI) | payer BC, SELFPAY | END 2022-01-31 23:59 | disposition home or self-care (01) | PROVIDERS: PCP Family Medicine; Visit Provider Obstetrics & Gynecology | DX: N76.0 Acute vaginitis (principal) ==

== ENCOUNTER 2024-07-03 22:07 | Emergency (ER) | payer BC, SELFPAY ==
[2024-07-03 22:09] VITALS: BP 146/85; PULSE 90; RESP 18; TEMP 36.2; O2SAT 99; BMI 29.2
[2024-07-03 22:36] LABS: Absolute Lymphocyte Count 1.75 X10^3/uL (0.83-4.51); Absolute Neutrophil Count 14.8 X10^3/uL (2.0-7.7); Basophil# 0.04 X10^3/uL; Basophil% 0.2 % (0-1); Eosinophils% 0.6 % (0-5); Lymphocyte # 1.75 X10^3/ul (0.83-4.51); Lymphocyte % 9.9 % (19-41); Mean Corp Hgb Conc 32.6 g/dL (32-36); Mean Corpuscular Hgb 27.7 pg (27.0-32.0); Mean Corpuscular Volume 85.1 fL (81-99); Mean Platelet Vol. 10.7 fl (6.2-12.0); Monocyte# 0.79 X10^3/uL; Monocyte% 4.5 % (0-10); NRBC Flagged by Analyzer 0 % (0-5); Neutrophil # 14.83 X10^3/uL (2.7-7.7); Neutrophil % 84.2 % (47-70); Platelet Count 344 K/mm3 (150-450); RBC Distribution Width CV 14.2 % (11.6-14.6); RBC Distribution Width SD 43.9 fl (35.1-43.9); Red Blood Count 5.05 M/mm3 (4.2-5.4); White Blood Count 17.6 K/mm3 (4.4-11.0)
[2024-07-03 22:45] LABS: Internal QC Validated? YES +Cl - CLEAR BKGD; Pregnancy, Serum, hCG Quali. NEGATIVE Negative; Record Kit Lot#, Serum Preg. 772476
[2024-07-03 22:55] LABS: ALB/GLOB Ratio 0.9 RATIO (0.9-2.4); AST(SGOT) 20 U/L (15-37); Alanine Aminotransfer ALT/SGPT 25 U/L (13-56); Albumin, Serum 3.8 g/dL (3.2-5.0); Alkaline Phosphatase 95 U/L (45-117); Anion Gap 8 (5-15); BUN 14 mg/dL (7-18); Calcium,Total 9.5 mg/dL (8.5-10.1); Chloride 104 mmol/L (98-107); EST Glomerular Filtration Rate 65 mL/min (>60); Est Glom Filt Rate - Afr Amer 78 mL/min (>60); Estimated Creatinine Clearance 76.47 ml/min; Globulin 4.3 g/dL (2.2-4.2); Glucose 132 mg/dL (74-106); Potassium 3.9 mmol/L (3.5-5.1); Protein, Total 8.1 g/dL (6.4-8.2); Sodium Level 138 mmol/L (136-145)
[2024-07-03 23:28] LABS: Mucous, Urine 0 SEEN /hpf (<or=2+); Red Blood Cells-Urine 0 SEEN /hpf (0-5); Squamous Epithelial Cells - UA 0 SEEN /hpf (5-10)
[2024-07-03 23:29] LABS: Color, Urine Brown (Yellow); Glucose, Dipstick Normal (Normal); Ketone-Dipstick 15 mg/dl (Negative); Leukocyte Esterase-Dipstick 500 /ul (Negative); Nitrite-Dipstick Positive (Negative); Occult Blood-Urine 10 /ul (Negative); Protein-Dipstick 30 mg/dl (Negative); Urine Clarity Turbid (Clear); Urine Urobilinogen 12 mg/dl (Normal)
[2024-07-03 23:38] LABS: Bacteria 2+ /hpf (None Seen); Urine Bilirubin Dipstick 3 mg/dL (Negative); White Blood Cells 0-5 SEEN /hpf (0-5)
--- NOTE | 2024-07-03 23:44 | ED.VIS.GI ---
HPI HPI - GI History of Present Illness Chief Complaint: Abd Pain Informant: patient Abdominal Pain/Flank Pain Onset: Month(s) Context: Gradual Onset Timing: Intermittent Quality: Cramping Location: Diffuse Current Severity: Gone Maximum Severity: Mild Worsened by: Nothing Relieved by: Nothing Nausea/Vomiting/Emesis GI Symptom: Positive for Nausea; Negative for Vomiting Onset: Today Severity: Mild Diarrhea/Melena/Hematochezia GI Symptom: Negative for Diarrhea, Melena or Hematochezia Associated Symptoms Associated Symptoms: Negative for Dysuria, Frequency, Hematuria or Urgency Narrative Narrative: 44-year-old female no seen past medical history. No prior abdominal surgeries. Since February of this year she has had diffuse abdominal pain. She has had upper and lower scopes done by Dr. Brenden Serrato [facility]. They saw inflammation. She was on Carafate for the last month which improved her symptoms. She just recently stopped the Carafate because she was told to and her symptoms have returned. She gets associated nausea and sometimes diarrhea. No melena or hematemesis. No fever. She had a prior 25 pound weight loss that is since stabilized and she is no longer losing weight. She denies any dysuria. No fever. Currently she is feeling better. Prior similar symptoms: Yes Recent Illness/Hospitalization: No [facility] Medical History Cellulitis of finger of right hand Abrasion of right index finger, initial encounter Open bite of right index finger without damage to nail, initial encounter Cat bite Frequent headaches Anxiety and depression Thyroid disease Home Medications ?Medication ?Instructions ?Recorded ?Last Taken ?Type ferrous sulfate 325 mg (65 mg 325 mg PO DAILY 12/14/18 Unknown History iron) tablet amitriptyline 25 mg tablet 25 mg PO DAILY 01/22/20 Unknown History fluoxetine 20 mg capsule 40 mg PO DAILY 30 days #60 caps 01/22/20 Unknown History Allergy/AdvReac Type Severity Reaction Status Date / Time No Known Allergies Allergy Verified 07/03/24 22:09 Family History Mother Heart disease Arthritis Sister Anxiety Son Asthma Surgical History Status post ligament repair History of tonsillectomy Social History Smoking Status: Never smoker alcohol intake: current alcohol intake frequency: holidays/special occasions only details: SOCIAL substance use type: does not use additional social history: DOES NOT TAKE ASPIRIN DOES NOT TAKE IBUPROFEN ROS ROS ED ROS Narrative Abdominal pain. Nausea and diarrhea times. This has been going on for months. Constitutional Constitutional ED: Denies chills or fever(s) ENT ENT ED: Denies ear pain Cardiovascular Cardiovascular: Denies chest pain Respiratory/Chest Respiratory/Chest: Denies cough Gastrointestinal Gastrointestinal: Reports abdominal pain, diarrhea and nausea; Denies constipation or melena Genitourinary Genitourinary ED: Denies dysuria or hematuria Musculoskeletal Musculoskeletal: Denies arthralgias Integumentary Denies abscess Neurologic Neurologic: Denies headache(s) Psychiatric Psychiatric: Denies anxiety Endocrine Endocrinology: Denies polydipsia Hematologic/Lymphatic Hematologic/Lymphatic: Denies easy bleeding Allergic/Immunologic Allergic/Immunologic ED: Denies mouth swelling EXAM Physical Exam Narrative Exam Narrative: Well-appearing 44-year-old female. Vital signs stable afebrile. H EENT exam unremarkable. Mytrex membranes. Neck nontender no lymphadenopathy. Lungs clear to auscultation bilaterally. Heart regular rate and rhythm no murmur. Abdomen soft, nontender, nondistended, normal bowel sounds without peritoneal signs. Completely pain-free. No reproducible pain. No localizing tenderness. No obstruction. Soft with normal bowel sounds. Moving all 4 extremities. Back nontender. Awake and alert. Very benign exam. She states she is feeling much better. This resolved on its own. Const Vital Signs: 07/03/24 22:09 Temperature 97.2 F L Temperature Source Temporal Pulse Rate 90 Respiratory Rate 18 Blood Pressure 146/85 H Blood Pressure Mean 105 Pulse Ox 99 Oxygen Delivery Method Room Air Positive well nourished and well developed; Negative for obese, cachectic, contractures or unkempt General Appearance ED: well developed and NAD; Negative for unkempt, cachectic, contractures or pallor Nutritional Appearance: Negative for cachectic or obese HEENT Reports moist mucous membranes normocephalic and atraumatic; Negative for trauma or tenderness Eyes PERRL and EOMs intact bilaterally General Eye ED: Negative for pale conjunctiva or scleral icterus Neck no lymphadenopathy, supple and no JVD General: Negative for tenderness Carotids: Negative for other Lymph Lymphatic: Negative for other Resp normal respiratory effort and clear to auscultation bilaterally Effort and Inspection: Negative for respiratory distress Auscultation: Negative for rales, rhonchi, wheezes or diminished lung sounds Cardio regular rate, regular rhythm, S1 normal heart sound, S2 normal heart sound and no murmurs Rate: Negative for bradycardia or tachycardic Rhythm: Negative for abnormal rhythm GI non-tender, non-distended and no masses Inspection: Negative for abdominal distention Auscultation: normoactive bowel sounds Palpation: soft; Negative for tender, guarding, hepatomegaly, splenomegaly, hernia, mass, pulsatile mass or rebound tenderness present Back/Spine no CVA tenderness General Back: Negative for CVA tenderness Cervical Spine: Negative for cervical spine tenderness Thoracic Spine / Upper Back: Negative for thoracic spinal tenderness Lumbar Spine / Lower Back: Negative for lumbar spinal tenderness Extremity full ROM General Extremety ED: Negative for edema or tenderness General Extremity: Negative for edema Neuro CN's II-XII intact bilaterally Sensorium / Orientation: alert, oriented to person, oriented to place and oriented to time; Negative for orientation impaired, confused or lethargic Motor Exam: strength 5/5 throughout Psych mental status grossly normal and thought process normal Appearance: Negative for unkempt Attitude: No agitated Mood & Affect: Negative for depressed, anxious or tearful Skin no wounds General Skin Exam: Negative for jaundice or pallor Lesions: no lesions Rashes: no rashes Trauma: Negative for abrasion Nails: Negative for discolored MDM MDM MDM Narrative Medical decision making narrative: 44-year-old female with recurrent abdominal pain that she has had for months. She has had outpatient CAT scan that was unremarkable and upper and lower endoscopy that showed some chronic inflammation. Exam is completely benign. She has had a prior elevated white count. Currently she is symptom-free pain-free with a benign abdominal exam. She and I discussed a repeat CT which I do not think she needs and she does not want. She is comfortable being discharged to home. Be restarted on her Carafate which she already has and Zofran at home which she has and follow-up with GI. Lab Data Attestation: I reviewed the patient's lab results. Lab results narrative: CBC white count 17.6. H and H14 and 43. Platelets 344. Electrolytes normal gap 8. Normal BUN and creatinine of 14 and 1. Liver enzymes are normal. Glucose 132. Serum test negative. UA positive for nitrites 2+ bacteria but no white or red cells. She is having no urinary symptoms. I will send a urine culture. Unlikely treated this time with no symptoms nor any pelvic pain or dysuria. Labs: Laboratory Results - last 24 hr 07/03/24 07/03/24 22:28 23:25 WBC 17.6 H RBC 5.05 Hgb 14.0 Hct 43.0 MCV 85.1 MCH 27.7 MCHC 32.6 RDW Std Deviation 43.9 RDW Coeff of [place] 14.2 Plt Count 344 MPV 10.7 Immature Gran % (Auto) 0.600 Neut % (Auto) 84.2 H Lymph % (Auto) 9.9 L [place] % (Auto) 4.5 Eos % (Auto) 0.6 Baso % (Auto) 0.2 Absolute Neuts (auto) 14.8 H Absolute Lymphs (auto) 1.75 Nucleated RBC % 0 Sodium 138 Potassium 3.9 Chloride 104 Carbon Dioxide 26.0 Anion Gap 8 BUN 14 Creatinine 1.00 Estim Creat Clear Calc 76.47 Est GFR (MDRD) Af Amer 78 Est GFR (MDRD) Non-Af 65 BUN/Creatinine Ratio 14.0 Glucose 132 H Calcium 9.5 Total Bilirubin 0.60 AST 20 ALT 25 Alkaline Phosphatase 95 Total Protein 8.1 Albumin 3.8 Globulin 4.3 H Albumin/Globulin Ratio 0.9 Serum , Qual NEGATIVE Urine Color Brown Urine Clarity Turbid Urine pH 5.0 Ur Specific [place] 1.020 Urine Protein 30 H Urine Glucose (UA) Normal Urine Ketones 15 H Urine Occult Blood 10 H Urine Nitrite Positive H Urine Bilirubin 3 H Urine Urobilinogen 12 H Ur Leukocyte Esterase 500 H Urine RBC 0 SEEN Urine WBC 0-5 SEEN Ur Squamous Epith Cells 0 SEEN Urine Bacteria 2+ Urine Mucus 0 SEEN Discharge Plan Triage Chief Complaint: Abd Pain ED Provider: Henrry Vaca Dx/Rx/DC Orders Clinical Impression: Abdominal pain Instructions: ED Abdominal Pain Unkn Cause Fem Prescriptions: No Action ferrous sulfate 325 mg (65 mg iron) tablet 325 mg PO DAILY fluoxetine 20 mg capsule 40 mg PO DAILY 30 Days Qty: 60 amitriptyline 25 mg tablet 25 mg PO DAILY Primary Care Provider: Italo Otto Referrals: Tianna Win MD [Non-Staff] - As soon as possible (Jewel Stripper in a private practice in [facility].) Carmine Rangel DO [Med Staff - Active Staff] - As soon as possible Italo Otto MD [Primary Care Provider] - As soon as possible Activity Restrictions/Additional Instructions: Restart your Carafate. Call and follow-up with the [facility] and try to get in with one of the GI doctors either at [facility] or [facility]. I also gave you referral to either Dr. Rangel the yarn washer here at the [facility] or Tianna Win that is the GI doctors in [facility]. Return if feeling worse. Increasing pain, fever. Print Language: Croatian Disposition Disposition: Home, Self Care
== END 2024-07-03 23:51 | disposition home or self-care (01) ==
LOC: ED 23:50
PROVIDERS: Emergency Provider Emergency Medicine; PCP Family Medicine; Visit Provider Emergency Medicine
DX: R10.9 Unspecified abdominal pain (principal); R11.0 Nausea
CPT/HCPCS: 80053; 81001; 84703; 85025; 99282; A4216

== ENCOUNTER → 2024-07-25 | Outpatient (CLI) | payer BC, SELFPAY ==
[2024-07-25 10:51] LABS: Bacteria 0 SEEN /hpf (None Seen); Mucous, Urine 0 SEEN /hpf (<or=2+); Red Blood Cells-Urine 0 SEEN /hpf (0-5)
[2024-07-25 11:18] LABS: Absolute Lymphocyte Count 1.76 X10^3/uL (0.83-4.51); Absolute Neutrophil Count 6.4 X10^3/uL (2.0-7.7); Basophil# 0.02 X10^3/uL; Basophil% 0.2 % (0-1); Color, Urine Yellow (Yellow); Eosinophil# 0.14 X10^3/uL; Eosinophils% 1.6 % (0-5); Glucose, Dipstick Normal (Normal); Hematocrit 40.1 % (37-47); Hemoglobin 13.1 g/dL (12.0-15.0); Ketone-Dipstick 15 mg/dl (Negative); Leukocyte Esterase-Dipstick 500 /ul (Negative); Lymphocyte # 1.76 X10^3/ul (0.83-4.51); Lymphocyte % 19.9 % (19-41); Mean Corp Hgb Conc 32.7 g/dL (32-36); Mean Corpuscular Hgb 27.7 pg (27.0-32.0); Mean Corpuscular Volume 84.8 fL (81-99); Mean Platelet Vol. 10.5 fl (6.2-12.0); Monocyte# 0.52 X10^3/uL; Monocyte% 5.9 % (0-10); NRBC Flagged by Analyzer 0 % (0-5); Neutrophil # 6.37 X10^3/uL (2.7-7.7); Neutrophil % 72.1 % (47-70); Nitrite-Dipstick Negative (Negative); Occult Blood-Urine Negative /ul (Negative); Platelet Count 324 K/mm3 (150-450); Protein-Dipstick Negative (Negative); RBC Distribution Width CV 13.6 % (11.6-14.6); RBC Distribution Width SD 42.5 fl (35.1-43.9); Red Blood Count 4.73 M/mm3 (4.2-5.4); Urine Bilirubin Dipstick Negative (Negative); Urine Clarity Sl. Cloudy (Clear); Urine Urobilinogen Normal (Normal); Urine pH 6.5 (5.0 - 8.0); White Blood Count 8.8 K/mm3 (4.4-11.0)
[2024-07-25 11:20] LABS: Erythrocyte Sedimentation Rate 2 mm/hr (0-30)
[2024-07-25 11:24] LABS: Squamous Epithelial Cells - UA 0-5 SEEN /hpf (5-10); White Blood Cells 0-5 SEEN /hpf (0-5)
[2024-07-25 11:59] LABS: Vitamin B12 912 pg/mL (211-911)
[2024-07-25 12:11] LABS: AST(SGOT) 20 U/L (15-37); Alanine Aminotransfer ALT/SGPT 28 U/L (13-56); Albumin, Serum 3.7 g/dL (3.2-5.0); Alkaline Phosphatase 83 U/L (45-117); Anion Gap 8 (5-15); BUN 10 mg/dL (7-18); BUN/Creat Ratio 12.9 RATIO (10-20); CRP 7.19 mg/L (0.0-3.0); Calcium,Total 8.8 mg/dL (8.5-10.1); Chloride 107 mmol/L (98-107); Creatinine, Serum 0.78 mg/dL (0.55-1.02); EST Glomerular Filtration Rate 87 mL/min (>60); Est Glom Filt Rate - Afr Amer 105 mL/min (>60); Free T3 2.4 pg/mL (2.18-3.98); Globulin 3.8 g/dL (2.2-4.2); Glucose 95 mg/dL (74-106); LDH 167 U/L (84-246); Potassium 3.5 mmol/L (3.5-5.1); Protein, Total 7.5 g/dL (6.4-8.2); Sodium Level 138 mmol/L (136-145); T4 Free Direct 0.89 ng/dL (0.76-1.46)
[2024-07-31 00:07] LABS: Anti-Centromere B Ab <0.2 AI (0.0-0.9); Anti-Chromatin <0.2 AI (0.0-0.9); Anti-Jo <0.2 AI (0.0-0.9); Anti-Scleroderma-70 AB 0.2 AI (0.0-0.9); Anti-dsDNA Ab <1 IU/mL (0-9); Beef <0.10 kU/L (Class 0); Chocolate <0.10 kU/L (Class 0); Codfish <0.10 kU/L (Class 0); Corn <0.10 kU/L (Class 0); Egg, Whole <0.10 kU/L (Class 0); Milk (Cow) <0.10 kU/L (Class 0); Mussels <0.10 kU/L (Class 0); Peanut <0.10 kU/L (Class 0); Pork <0.10 kU/L (Class 0); RNP Ab <0.2 AI (0.0-0.9); SJOGREN'S Anti-SS-A test 0.2 AI (0.0-0.9); SJOGREN'S Anti-SS-B test < 0.2 AI (0.0-0.9); Salmon <0.10 kU/L (Class 0); Shrimp <0.10 kU/L (Class 0); Smith Ab <0.2 AI (0.0-0.9); Soybean <0.10 kU/L (Class 0); Tuna <0.10 kU/L (Class 0); Wheat <0.10 kU/L (Class 0)
[2024-07-31 14:48] LABS: ACCA 34 units (0-90); ALCA 26 units (0-60); AMCA 28 units (0-100); Albumin 3.9 g/dL (2.9-4.4); Alpha-1-Globulins 0.3 g/dL (0.0-0.4); Alpha-2-Globulins 0.9 g/dL (0.4-1.0); Cytoplasmic Ab (C-ANCA) <1:20 titer (Neg:<1:20); Endomysial Antibody IgA Negative (Negative); Gamma Globulin 1.1 g/dL (0.4-1.8); Immunoglobulin A 326 mg/dL (87-352); Immunoglobulin E 18 IU/mL (6-495); Immunoglobulin G 1064 mg/dL (586-1602); Immunoglobulin M 147 mg/dL (26-217); PROEL- TOTAL PROTEIN 7.4 g/dL (6.0-8.5); Perinuclear Ab (P-ANCA) <1:20 titer (Neg:<1:20); gASCA 26 units (0-50); t-Transglutaminase IgA <2 U/mL (0-3)
== END | disposition home or self-care (01) ==
LOC: LAB 10:47
PROVIDERS: PCP Family Medicine
DX: K52.9 Noninfective gastroenteritis and colitis, unspecified (principal)
CPT/HCPCS: 36415; 80053; 81001; 82607; 82746; 82784; 82785; 83516; 83615; 84165; 84439; 84443; 84481; 85025; 85652; 86003; 86005; 86036; 86037; 86140; 86225; 86235; 86255; 86334; 86671; 87086; 87088

== ENCOUNTER → 2024-07-27 | Outpatient (CLI) | payer BC, SELFPAY ==
[2024-07-30 01:07] LABS: Giardia Lamblia, Stool EIA Negative (Negative); Pancreatic Elastase, Fecal > 800 (>200)
[2024-07-30 17:07] LABS: Calprotectin, Stool 76 ug/g (0-120); Fats, Neutral Normal (.); Fats, Total Normal (.)
== END | disposition home or self-care (01) ==
LOC: LAB 08:09
PROVIDERS: PCP Family Medicine
DX: K52.9 Noninfective gastroenteritis and colitis, unspecified (principal)
CPT/HCPCS: 82653; 82705; 83630; 83993; 87329; 87506

== ENCOUNTER → 2024-09-03 | Outpatient (CLI) | payer BC, SELFPAY ==
--- NOTE | 2024-09-03 10:06 | NM_ITS ---
CLINICAL: 44-year-old female with history of early satiety. SEMI-SOLID PHASE 99m Tc SULFUR COLLOID GASTRIC EMPTYING STUDY COMPARISON: None available FINDINGS: The patient was administered 1.2 mCi of 99m Tc sulfur colloid mixed with oatmeal and consumed per os. Image acquisitions in the anterior-posterior projections were obtained for 60 minutes. There is prompt visualization of the stomach. There is no gastroesophageal reflux identified. T ? raw data emptying was calculated to be 46.08 minutes, (Normal: 12-56 minutes). NM/Gastric Emptying Study IMPRESSION: 1. NORMAL 99m Tc sulfur colloid semi-solid phase (oatmeal) gastric emptying imaging examination. A. There is normal and preserved semi-solid phase gastric emptying compared to normal controls. (Guillaume et al, J Nucl Med Tech 38: 186, 2010). Electronically Signed: Ferdinand Solorio DO at 12:52 EST ,
== END | disposition home or self-care (01) ==
LOC: NM 10:05
PROVIDERS: PCP Family Medicine
DX: K31.89 Other diseases of stomach and duodenum (principal); K52.9 Noninfective gastroenteritis and colitis, unspecified
CPT/HCPCS: 78264; A9541

== ENCOUNTER → 2024-10-28 | Outpatient (CLI) | payer BC, SELFPAY ==
[2024-10-28 11:44] LABS: CRP < 2.90 mg/L (0.0-3.0)
[2024-10-28 15:01] LABS: Hepatitis B Surface Antibody Non-Reactive; Hepatitis B Surface Antigen Non-Reactive (Nonreactive); Hepatitis C Antibody Non-Reactive (Nonreactive)
[2024-10-29 05:06] LABS: Hepatitis A AB, Total Negative (Negative); Hepatitis B Core Ab Total Negative (Negative)
== END | disposition home or self-care (01) ==
LOC: LAB 10:59
PROVIDERS: PCP Family Medicine; Referring Provider Nurse Practitioner Acute Care; Visit Provider Nurse Practitioner Acute Care
DX: R10.13 Epigastric pain (principal); R10.31 Right lower quadrant pain; R10.32 Left lower quadrant pain; K58.9 Irritable bowel syndrome, unspecified; K59.00 Constipation, unspecified; R79.82 Elevated C-reactive protein (CRP); R63.4 Abnormal weight loss
CPT/HCPCS: 36415; 86140; 86704; 86706; 86708; 86803; 87340

== ENCOUNTER → 2024-11-27 | Outpatient (CLI) | payer BC, SELFPAY ==
--- NOTE | 2024-11-27 12:31 | MRI_ITS ---
EXAM: MR enterography abdomen/pelvis 1 CLINICAL HISTORY: Nausea, bloating, heartburn, constipation, diarrhea. COMPARISON: None. TECHNIQUE: Multiplanar multisequence MRI of the abdomen/pelvis before and after administration of intravenous and oral contrast. 1500 cc Breeza oral contrast. 15 cc Dotarem. FINDINGS: Liver, gallbladder, bile ducts, pancreas, and spleen are unremarkable. Kidneys and adrenals are unremarkable. Normal abdominal aorta and IVC. Celiac, superior mesenteric, and renal arteries are normal. No mesenteric mass, adenopathy, or ascites. Uterus and ovaries are within normal limits. Stomach and small bowel are normal. Moderate stool burden throughout the entire colon and rectum. Mild diverticulosis of the distal descending and sigmoid colon. No diverticulitis. No evidence of acute or chronic bowel inflammation. No stricture or tethering. No GI tract mass is identified. Appendix is not identified. Terminal ileum is normal. Skeletal structures are unremarkable. No marrow lesions. No evidence of sacroiliitis. MRI/Enterography Abd/Pel IMPRESSION: 1. Constipation. 2. Mild colonic diverticulosis without diverticulitis. 3. Otherwise normal GI tract. No acute or chronic inflammatory changes. No e vidence of malignancy. Reading Location: [facility]
[2024-11-27 13:22] VITALS: BP 148/88; PULSE 65; RESP 18; TEMP 36.1; O2SAT 99; BMI 26.6
[2024-11-27] MEDS: Glucagon 1 MG/ML Syringe IV (14:33)
[2024-11-27] MEDS: 0.9% Saline Lock 10 ML Syringe IV (14:33)
[2024-11-27 14:52] VITALS: BP 145/73; PULSE 66; RESP 16; O2SAT 98
== END | disposition home or self-care (01) ==
LOC: MRI 12:12
PROVIDERS: PCP Family Medicine; Referring Provider Nurse Practitioner Acute Care; Visit Provider Nurse Practitioner Acute Care
DX: R10.13 Epigastric pain (principal); R10.31 Right lower quadrant pain; R10.32 Left lower quadrant pain; K28.9 Gastrojejunal ulcer, unspecified as acute or chronic, without hemorrhage or perforation; K59.00 Constipation, unspecified; R79.82 Elevated C-reactive protein (CRP); R63.4 Abnormal weight loss
CPT/HCPCS: 74183; 96374; A9575; A4216; J1610

== ENCOUNTER → 2024-12-12 | Outpatient (CLI) | payer BC, SELFPAY ==
--- NOTE | 2024-12-12 09:30 | RAD_ITS ---
PROCEDURE: ABDOMEN SINGLE VIEW REASON FOR EXAM: Sitz marker day 3. TECHNIQUE: Single view abdomen. COMPARISON: None FINDINGS: Bowel gas pattern is normal. No evidence of bowel obstruction. A moderate amount of fecal debris is seen throughout the colon. Seven (7) Sitz markers project over the right hemicolon. A total of three (3) Sitz markers project over the transverse colon. Three (3) Sitz markers project over the left hemicolon. No suspicious calcifications. The bones are unremarkable. RAD/Abdomen Single View IMPRESSION: No acute abdominal findings. Sitz markers as detailed above. Reading Location: [place] [id number]
== END | disposition home or self-care (01) ==
LOC: RAD 09:20
PROVIDERS: PCP Family Medicine; Referring Provider Nurse Practitioner Acute Care; Visit Provider Nurse Practitioner Acute Care
DX: K59.00 Constipation, unspecified (principal)
CPT/HCPCS: 74018

== ENCOUNTER → 2024-12-14 | Outpatient (CLI) | payer BC, SELFPAY ==
--- NOTE | 2024-12-14 08:15 | RAD_ITS ---
EXAM: XR Abdomen, 1 View CLINICAL INDICATION: TECHNIQUE: Frontal supine view of the abdomen/pelvis. COMPARISON: No relevant prior studies available. FINDINGS: GASTROINTESTINAL TRACT: Fecal retention in the colon consistent with constipation. No dilation. BONES/JOINTS: Unremarkable. No acute fracture. RAD/Abdomen Single View IMPRESSION: Fecal retention in the colon consistent with constipation. Reading Location: [facility]
== END | disposition home or self-care (01) ==
LOC: RAD 08:06
PROVIDERS: PCP Family Medicine; Referring Provider Nurse Practitioner Acute Care; Visit Provider Nurse Practitioner Acute Care
DX: K59.00 Constipation, unspecified (principal)
CPT/HCPCS: 74018

== ENCOUNTER 2024-12-26 08:37 | Day surgery (SDC) | payer BC, SELFPAY ==
--- NOTE | 2024-12-17 09:24 | PAT.ANE_ITS ---
Pre-Assessment Diagnosis/Proposed Procedure Planned Operative Procedure(s): Hysteroscopy. Dilatation and curettage. 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 When Was Last Pacemaker Check QUESTION #4 FULL TEXT: You/Your Family Experience fever (hyperthermia) with Anesthesia Last Oral Intake Last Oral intake: Last Oral Intake NPO since Meds taken in AM with sips of water? Meds patient instructed to take am of surgery PONV PONV - product design engineer: PONV - product design engineer Female Yes 12/17/24 08:22 HX of Motion Sickness Yes 12/17/24 08:22 HX of N/V After Surgery No 12/17/24 08:22 Non-Smoker Yes 12/17/24 08:22 Duration of Surgery greater No 12/17/24 08:22 than 60 minutes Number of Risk Factors 3 12/17/24 08:22 PONV Score Moderate Risk 12/17/24 08:22 Height & Weight Height & Weight: Anesthesia: Height & Weight Height 5 ft 5 in 11/27/24 13:22 Respiratory Assessment Respiratory Assessment - product design engineer: Respiratory Tract Infection Hx - product design engineer Hx Respiratory Tract Infection No 12/17/24 08:22 STOP Sleep Apnea STOP Sleep Apnea - product design engineer: STOP Sleep Apnea - product design engineer Hx Hypertension Yes: controlled with meds 12/17/24 08:22 Hx Sleep Apnea No 12/17/24 08:22 CPAP BIPAP Do you snore loudly (louder No 12/17/24 08:22 than talking or can be heard Do you often feel tired/ No 12/17/24 08:22 fatigued/ sleepy during daytime? Has anyone observed you stop No 12/17/24 08:22 breathing during sleep? STOP Results Negative 12/17/24 08:22 QUESTION #5 FULL TEXT : Do you snore loudly (louder than talking or can be heard through closed doors)? 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 Specify any problems Hx of Preganancy in last 3 No 12/17/24 08:22 Months Nurse Filling Out Transfusion [email or web address] 12/17/24 08:22 & Questions: Date: 12/17/24 12/17/24 08:22 Time: 08:24 12/17/24 08:22 Patient unable to answer at this time (ie. confused, unrespo /Reproduction History /Reproductive History - product design engineer: /Reproductive Hx- product design engineer Hx Now No 12/17/24 08:22 Gestational Age (in weeks): EDC: Hx Hx Para Hx Section SAB No 12/17/24 08:22 [facility] Medical History (Updated 12/17/24 @ 08:27 by Ashu Burgos) IBD (inflammatory bowel disease) Cellulitis of finger of right hand Abrasion of right index finger, initial encounter Open bite of right index finger without damage to nail, initial encounter Cat bite Frequent headaches Anxiety and depression Thyroid disease Home Medications ?Medication ?Instructions ?Recorded ?Last Taken ?Type ondansetron HCl 4 mg tablet 4 mg PO Q8H PRN nausea/vom iting 07/18/24 Unknown History dicyclomine 20 mg tablet 20 mg PO TID PRN abdominal p ain 07/25/24 Unknown Rx #30 tabs famotidine 40 mg tablet 40 mg PO QHS #30 tabs Unknown Rx metoprolol succinate 25 mg 25 mg PO QDAY 10/28/24 Unkn own History tablet,extended release 24 hr linaclotide 145 mcg capsule 145 mcg PO QAM #90 caps Unknown Rx (Linzess) fluoxetine 20 mg tablet 20 mg PO DAILY 12/17/24 Unkn own History fluoxetine 40 mg capsule 40 mg PO DAILY 12/17/24 Unkn own History omeprazole 20 mg capsule,delayed 20 mg PO DAILY Unknown History release Allergy/AdvReac Type Severity Reaction Status Date / Time No Known Allergies Allergy Verified 12/17/24 08:19 Family History Mother Heart disease Arthritis Sister Anxiety Son Asthma Surgical History Status post ligament repair History of tonsillectomy Social History Smoking Status: Never smoker alcohol intake: current alcohol intake frequency: holidays/special occasions only details: SOCIAL substance use type: does not use additional social history: DOES NOT TAKE ASPIRIN DOES NOT TAKE IBUPROFEN Audit: Pertinent Findings Pertinent Findings EKG Perinent findings: December 20, 2018. Normal sinus rhythm. Nonspecific T wave abnormality. Recommendation Anesthesia Recommendation Anesthesia recommendation: OPTIMIZED for anesthesia
[2024-12-17 11:15] LABS: Absolute Neutrophil Count 4.9 X10^3/uL (2.0-7.7); Basophil# 0.04 X10^3/uL; Basophil% 0.5 % (0-1); Eosinophils% 2.6 % (0-5); Hematocrit 38.9 % (37-47); Lymphocyte % 25.9 % (19-41); Mean Corp Hgb Conc 33.4 g/dL (32-36); Mean Corpuscular Volume 86.8 fL (81-99); Mean Platelet Vol. 9.9 fl (6.2-12.0); Monocyte% 6.5 % (0-10); NRBC Flagged by Analyzer 0 % (0-5); Neutrophil # 4.94 X10^3/uL (2.7-7.7); Neutrophil % 64.1 % (47-70); Platelet Count 336 K/mm3 (150-450); Red Blood Count 4.48 M/mm3 (4.2-5.4); White Blood Count 7.7 K/mm3 (4.4-11.0)
[2024-12-17 12:49] LABS: Anion Gap 11 (5-15); BUN 11 mg/dL (4-19); BUN/Creat Ratio 15.8 RATIO (10-20); Calcium,Total 9.4 mg/dL (7.6-11.0); Carbon Dioxide 24.3 mmol/L (21.0-32.0); Chloride 104 mmol/L (98-108); Creatinine, Serum 0.72 mg/dL (0.70-1.20); EST Glomerular Filtration Rate 108 (>60); Glucose 97 mg/dL (70-99); Potassium 4.4 mmol/L (3.3-5.1); Sodium Level 139 mmol/L (133-145)
--- NOTE | 2024-12-25 08:15 | PCM.HP.BLA ---
History and Physical Date of Admission: 12/26/24 Pre-Op History and Physical?HPI: The patient is a 44 year old female presenting for discussion regarding AUB. Pt had attempted EMB- but stenotic cervix unable to collect sample Ultrasound shows likely adenomyosis, endometrial thickness 6.5mm left ovary with unilocular 3.2cm non simple cyst O-rads 2 PRE-operative visit.She is scheduled for Hysteroscopy D&C, insertion of Liletta IUD for AUB, adenomyosis, Stenotic cervixon 12/26/24. Procedure discussed along with risks, benefits and complications. Otheralternatives discussed for management. Consent form signed? Yes. ? ?PAST MEDICAL HISTORYPAST MEDICAL HISTORYDiagnosisDate?Abnormal mammogram of left [id number]/23/2022?Abnormal weight loss??Constipation??Diarrhea??Fatigue??GERD (gastroesophageal reflux disease)??Globus sensation??Headache??Spontaneous without mention of complication??Unspecified essential [id number]/01/2004 ? ?PAST SURGICAL HISTORYPAST SURGICAL HISTORYProcedureLateralityDate?BX OF BREAST; INCISIONAL?12/23/2022?COLONOSCOPY SCREENING?05/29/2024?EGD W/O [facility] SPEC VARICIES INJ?05/29/2024?TONSILLECTOMY & ADENOIDECTOMY <AGE 14???age 19??? CURRENT MEDICATIONSCurrent Outpatient MedicationsMedicationSigDispenseRefill?hydrOXYzine HCl (ATARAX) 25 mg tabletTake 25 mg by mouth three times a day as needed for anxiety.???LINZESS 145 mcg capsuleTake 145 mcg by mouth once daily.???ondansetron orally disintegrating (ZOFRAN ODT) 4 mg disintegrating tabletTake 4 mg by mouth every 8 hours as needed for nausea/vomiting.???famotidine (PEPCID) 40 mg tabletTake 40 mg by mouth daily at bedtime.???rizatriptan (MAXALT VOLLEYBALL COACH) 10 mg disintegrating tabletTake 1 tablet (10 mg) by mouth as needed. May repeat in 2 hours if needed9 tablet3?omeprazole (PRILOSEC) 20 mg capsuleTake 1 capsule by mouth two times a day.60 capsule5?metoprolol succinate ER (TOPROL XL) 25 mg 24 hr tabletTake 1 tablet by mouth once daily.30 [id number]?FLUoxetine HCl 20 mg tabletTake 20 mg by mouth once daily. Take with 40 mg capsule for a total of 60 mg daily???multivit,thx,calcium,iron,mins (MULTIVITAMIN AND MINERAL ORAL)Take by mouth.???FLUoxetine (PROZAC) 40 mg capsuleTake 40 mg by mouth once daily. Take with 20 mg capsule for a total of 60 mg daily???No current facility-administered medications for this visit.? ?ALLERGIES: Patient has no known allergies. ?PERSONAL HISTORY: SOCIAL HISTORYSocial History?Tobacco Use?Smoking status:Never?Smokeless tobacco:NeverVaping Use?Vaping status:Never UsedSubstance Use Topics?Alcohol use:Yes??Comment: rare?Drug use:No ?FAMILY HISTORY: FAMILY HISTORYFAMILY HISTORY ProblemRelationAge of Onset?DiabetesMother??HypertensionMother??HeartMother?? arrhythmia?HypertensionFather? ??REVIEW OF SYMPTOMS:negative except as noted above PHYSICAL EXAMINATION:?VITALS: Blood pressure 122/70, height 165.1 cm (5' 5), weight 72.1 kg (159 lb), last menstrual period 11/20/2024. ?GENERAL: The patient is well nourished, well hydrated in no acute distress. , The patient is oriented to time, place, and person. NECK: full range of motion LUNGS: Clear to auscultation bilaterally. no wheezes, rhonchi or rales HEART: Regular rate and rhythm, Normal heart sounds, and No murmurs or gallops? IMPRESSION: 44yo with AUB, adenomyosis, Stenotic cervix ?PLAN: Hysteroscopy, D&C, insertion of IUD- liletta ?Pt has been counseled on risks/benefits and alternatives of surgery including but not limited to anesthesia, bleeding, infection,uterine perforation with subsequent injury to pelvic structures including bowel, bladder, ureters and vessels. Pt wishes to proceed with surgery at this time. ?Pre and post op instructions reviewed ?I have reviewed and updated past medical and surgical history, medications and allergies Nupur Medellin MD ?Office Visit on 12/13/2024epic:EPIC?REPORT&MR_REPORTS&19^%20%[id number]??Note shared with patient
[2024-12-26] VITALS (9 sets, daily range): BP systolic 92–115; BP diastolic 52–70; PULSE 58–76; RESP 16; TEMP 36.7–37.3; O2SAT 97–100; BMI 26.5
[2024-12-26 09:11] LABS: Internal QC Validated? YES +Cl - CLEAR BKGD; Pregnancy, Urine Negative Negative
--- NOTE | 2024-12-26 10:20 | EMB_PTH ---
PATIENT: STEPHANIE NORRIS [place] [facility] [place][id number] AGE/SX: 44/F ROOM: RE12/26/[address]: Dr. Nupur Durand, MDDOB: 1980 BED: DIS: 12/26/2024 SPEC #: [id number] RECD: 12/26/24 13:50 STATUS: GURDEEP LANCE #: [id number] THOM: 12/26/24 10:[address]: Nupur Durand DEPT: SURGICAL PATHOLOGY RECD BY: Michael Estrada ENTERED: 12/26/24 13:50 SP TYPE: ENDOM BX/C OTHR DR: Dr. Italo Otto MD Tissues: A - Endometrium, NOS Procedures: Surgery Specimen Level IV HEADER OPERATION: Hysteroscopy, D&C PRE-OP DIAGNOSIS: Abnormal uterine bleeding, adenomyosis, stenotic cervix TISSUE SUBMITTED: A- Endometrial curettings MICROSCOPIC DIAGNOSIS A. Endometrium, curettage: * Early secretory phase. * Negative for hyperplasia or malignancy. MICROSCOPIC DESCRIPTION Slides are reviewed. GROSS DESCRIPTION Received in fixative is one container labeled with the patient's name and designated endometrial curettings. The specimen consists of multiple fragments of brown-gonzales soft tissue measuring in aggregate 3 x 3 x 0.5 cm. TE2 12/27/24 CPT:72011
--- NOTE | 2024-12-26 10:49 | PCM.PRE.AN2 ---
ASA Classification* ASA Classification ASA Classification: 2 Assessment & Plan Anesthesia* Anesthesia Assessment Anesthesia Assessment: Discussed sedation and/or anesthesia options, risks, benefits, and alternatives with patient/parents/legal guardian/POA. Questions invited. The patient/parents/legal guardian/POA seems to understand and agrees to proceed with anesthesia plan. Reviewed the physical assessment, medical history, allergy history and patient home medications list prior to surgery/procedure/anesthetic and documented any changes. Performed airway and anesthesia risk assessments. Anesthesia Type Anesthesia Type: MAC History Source History Obtained from:: Patient and Chart Anesthesia Focused Assessment* Temperature: 99.1 F Pulse Rate: 76 Blood Pressure: 115/70 Respiratory Rate: 16 Pulse Ox: 100 Oxygen Delivery Method: Room Air Airway Assessment Mouth opens: >3 cm Mallampati Score: II Teeth Condition: Dentures, Lower and Upper Neck Range of motion (ROM): Full ROM Focused Labs Anesthesia Preop lab: CBC WBC 7.7 K/mm3 (4.4-11.0) 12/17/24 11:12/17/24 RBC 4.48 M/mm3 (4.2-5.4) 12/17/24 11:12/17/24 Hgb 13.0 g/dL (12.0-15.0) 12/17/24 11:02 12/17/24 Hct 38.9 % (37-47) 12/17/24 11:02 12/17/24 Plt Count 336 K/mm3 (150-450) 12/17/24 11:02 12/17/24 CHEMISTRY Potassium 4.4 mmol/L (3.3-5.1) 12/17/24 11:02 12/17/24 Sodium 139 mmol/L (133-145) 12/17/24 11:02 12/17/24 BUN 11 mg/dL (4-19) 12/17/24 11:02 12/17/24 Creatinine 0.72 mg/dL (0.70-1.20) 12/17/24 11:02 12/17/24 Glucose 97 mg/dL (70-99) 12/17/24 11:02 12/17/24 TSH 2.420 uIU/mL (0.358-3.740) 07/25/24 10:50 10/10/24 COAG HCG, Quant < 1 mIU/mL (<9 non-preg) 08/18/13 09:21 08/18/13 Urine Test Negative Negative 12/26/24 08:55 12/26/24 Pre-Assessment Diagnosis/Proposed Procedure Planned Operative Procedure(s): Hysteroscopy. Dilatation and curettage. 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 When Was Last Pacemaker Check QUESTION #4 FULL TEXT: You/Your Family Experience fever (hyperthermia) with Anesthesia Last Oral Intake Last Oral intake: Last Oral Intake NPO since 00:00 12/26/24 09:01 Meds taken in AM with sips of Yes 12/26/24 09:01 water? 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 - heat treatment technician Female Yes 12/17/24 08:22 HX of Motion Sickness Yes 12/17/24 08:22 HX of N/V After Surgery No 12/17/24 08:22 Non-Smoker Yes 12/17/24 08:22 Duration of Surgery greater No 12/17/24 08:22 than 60 minutes Number of Risk Factors 3 12/17/24 08:22 PONV Score Moderate Risk 12/17/24 08:22 Height & Weight Height & Weight: Anesthesia: Height & Weight Height 5 ft 5 in 12/26/24 09:01 Weight: 72.4 kg 12/26/24 09:01 Body Mass Index (BMI) 26.5 12/26/24 09:01 Respiratory Assessment Respiratory Assessment - heat treatment technician: Respiratory Tract Infection Hx - heat treatment technician Hx Respiratory Tract Infection No 12/17/24 08:22 STOP Sleep Apnea STOP Sleep Apnea - heat treatment technician: STOP Sleep Apnea - heat treatment technician Hx Hypertension Yes: controlled with meds 12/17/24 08:22 Hx Sleep Apnea No 12/17/24 08:22 CPAP BIPAP Do you snore loudly (louder No 12/17/24 08:22 than talking or can be heard Do you often feel tired/ No 12/17/24 08:22 fatigued/ sleepy during daytime? Has anyone observed you stop No 12/17/24 08:22 breathing during sleep? STOP Results Negative 12/17/24 08:22 QUESTION #5 FULL TEXT : Do you snore loudly (louder than talking or can be heard through closed doors)? 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 Specify any problems Hx of Preganancy in last 3 No 12/17/24 08:22 Months Nurse Filling Out Transfusion [email or web address] 12/17/24 08:22 & Questions: Date: 12/17/24 12/17/24 08:22 Time: 08:24 12/17/24 08:22 Patient unable to answer at this time (ie. confused, unrespo /Reproduction History /Reproductive History - heat treatment technician: /Reproductive Hx- heat treatment technician Hx Now No 12/17/24 08:22 Gestational Age (in weeks): EDC: Hx Hx Para Hx Section SAB No 12/17/24 08:22 [facility] Medical History (Updated 12/17/24 @ 08:27 by Ashu Burgos) IBD (inflammatory bowel disease) Cellulitis of finger of right hand Abrasion of right index finger, initial encounter Open bite of right index finger without damage to nail, initial encounter Cat bite Frequent headaches Anxiety and depression Thyroid disease Home Medications ?Medication ?Instructions ?Recorded ?Last Taken ?Type ondansetron HCl 4 mg tablet 4 mg PO Q8H PRN nausea/vomiting 07/18/24 Unknown History dicyclomine 20 mg tablet 20 mg PO TID PRN abdominal pain 07/25/24 Unknown Rx #30 tabs famotidine 40 mg tablet 40 mg PO QHS #30 tabs 07/25/24 Unknown Rx metoprolol succinate 25 mg 25 mg PO QDAY 10/28/24 12/26/24 History tablet,extended release 24 hr linaclotide 145 mcg capsule 145 mcg PO QAM #90 caps 12/04/24 Unknown Rx (Linzess) fluoxetine 20 mg tablet 20 mg PO DAILY 12/17/24 12/26/24 History fluoxetine 40 mg capsule 40 mg PO DAILY 12/17/24 12/26/24 History omeprazole 20 mg capsule,delayed 20 mg PO DAILY 12/17/24 Unknown History release Allergy/AdvReac Type Severity Reaction Status Date / Time No Known Allergies Allergy Verified 12/26/24 09:00 Family History Mother Heart disease Arthritis Sister Anxiety Son Asthma Surgical History Status post ligament repair History of tonsillectomy Social History Smoking Status: Never smoker alcohol intake: current alcohol intake frequency: holidays/special occasions only details: SOCIAL substance use type: does not use additional social history: DOES NOT TAKE ASPIRIN DOES NOT TAKE IBUPROFEN Review of Systems (Anesthesia) ROS Narrative System reviewed and no additional complaints, except as documented. Physical Exam Const alert, oriented x3 and average body habitus Resp normal respiratory effort, normal air movement and clear to auscultation bilaterally Cardio regular rate, regular rhythm, no murmurs and diaphoretic
[2024-12-26] MEDS: Levonorgestrel IUD (Liletta) 1 EACH INTRA-UTER (11:15)
--- NOTE | 2024-12-26 11:18 | DCINST_ITS ---
Discharge Instructions Diet Discharge Diet: No restrictions DC O2, CPAP, BIPAP needs Home O2 Discharge instructions: No Dressing / Incision May resume sexual activity in: 1 week Dressing / Incision Call your doctor if you observe: Fever of 101 or Higher, Inability to urinate, Using more than 1 pad per hour and Uncontrolled pain Follow Up Care Please Follow Up With: Nupur Durand MD When: 1-2 weeks post OP if you need an appointment please call [phone] Test Results: Test results from this visit will be discussed in further detail at your follow- up appointment, if applicable. Discharge Plan Admission Attending Provider: Nupur Durand Primary Care Provider: Italo Otto Instructions Print Language: Portuguese Discharge Orders/Prescriptions Prescriptions: No Action ondansetron HCl 4 mg tablet 4 mg PO Q8H PRN (Reason: nausea/vomiting) famotidine 40 mg tablet 40 mg PO QHS Qty: 30 2RF dicyclomine 20 mg tablet 20 mg PO TID PRN (Reason: abdominal pain) Qty: 30 0RF metoprolol succinate 25 mg tablet extended release 24 hr 25 mg PO QDAY Linzess 145 mcg capsule 145 mcg PO QAM Qty: 90 1RF Rx Instructions: take 30 minutes before first meal fluoxetine 40 mg capsule 40 mg PO DAILY Patient Comments: take 1 capsule by mouth once daily with THE 20 MG CAPSULE FOR A DAILY TOTAL OF 60 MG fluoxetine 20 mg tablet 20 mg PO DAILY omeprazole 20 mg capsule,delayed release(DR/EC) 20 mg PO DAILY Referrals / Follow Up: Italo Otto MD [Primary Care Provider] - Disposition Disposition (needs filled in before D/C Order can be placed): Home, Self Care
--- NOTE | 2024-12-26 11:19 | PCM.OPRPT ---
Operative Report (Standard) Operative Information Date of Procedure: 12/26/24 Pre-Operative Diagnosis: AUB, adenomyosis , stenotic cervix Post-Operative Diagnosis: Same Surgery/Procedure Performed: Hysteroscopy, D&C, Insertion of liletta IUD salesperson women's hats: Yes Front Desk Worker: Franklin caruso MS3 Tasks completed by television production assistant: Retracting Additional research program assistant?: No Type of Anesthesia: MAC RN Documented Start/Stop Times: Operation Date: 12/26/24 10:20 Case Time Into Pre-Op 12/26/24 08:53 Out of Pre-Op 12/26/24 10:53 Anesthesia Start 12/26/24 10:58 Into Room 12/26/24 10:58 Procedure Start 12/26/24 11:09 Procedure Start Time: 11:09 Procedure Stop Time: 11:17 Select all DRAINS/GRAFTS/IMPLANTS that apply: Implanted device Implanted device details: Liletta IUD Special Medications: liletta iud Estimated Blood Loss: <5cc Specimen collected: Yes Description of specimen(s) removed: endometrial curettings Description of surgery: After informed consent was obtained patient was taken to OR and placed in supine position. Anesthesia was given. patient was placed in yellow fin stirrups and prepped and draped in normal sterile fashion. bladder was drained with straight catheter with approximately 20cc of clear yellow urine expelled. Weighted speculum placed in posterior fornix of vaginal, single tooth tenaculum was used to gently grasped anterior lip of cervix. Uterus was sounded to 7.5cm. Cervix was then gently dilated in an incremental fashion. Was adequate dilation was achieved the hysteroscope was inserted using Normal saline as the distention medium. Upon hysteroscopy there were no abnormalities noted. at this time sharp curettage was performed which yielded moderate amount of tissue. The tissue was then sent to pathology for examination. Uterine cavity intact, no complications. Lilleta IUD placed at uterine fundus and strings cut to 2.5cm from os. At this time procedure was deemed complete and successful. Tenaculum removed, speculum removed. Good hemostasis appreciated. Vaginal sweep was negative. Instrument and lap count correct x 2. I anticipate normal postoperative course. Surgical Findings: normal endometrial cavity, both ostia visuialized. Complications Complications: No Admit VTE Documentation VTE Present on Admission: Yes VTE Mechan Device Prophylaxis: SCD's VTE Pharm Prophylaxis ordered?: No Reason prophylaxis not ordered: Treatment Not Indicated
--- NOTE | 2024-12-26 12:05 | PCM.POST.ANE ---
Anesthesia: Postop Eval I Current Vital Signs Temperature: 98.1 F Pulse Rate: 63 Blood Pressure: 103/65 Respiratory Rate: 16 Pulse Ox: 99 Oxygen Delivery Method: Room Air Assessment Airway patent: Yes Spontaneous unlabored respirations: Yes Mental status: Awake and Calm nausea: No Vomiting: No Anesthesia Complication: No Fluid Hydration Crystalloid volume administer (ml): 10 Total IV fluid infused: 10 Progress Note Anesthesia document: Postop Eval 1 completed: Yes
--- NOTE | 2024-12-26 12:48 | POSTOPAN2_ITS ---
Anesthesia Postop Eval I Sum Postop Eval Completion status Anesthesia document: Postop Eval 1 completed: Yes Anesthesia Postop Eval I Summary Anesthesia Postop Eval I Summary: Anesthesia Postop Eval I: Assessment Summary Airway patent Yes 12/26/24 12:43 DIRECTORY [email or web address] Spontaneous unlabored Yes 12/26/24 12:43 DIRECTORY [email or web address].[email or web address] respirations Mental status Awake,Calm 12/26/24 12:43 DIRECTORY [email or web address].[email or web address] nausea No 12/26/24 12:43 DIRECTORY COMPILER.[email or web address] Vomiting No 12/26/24 12:43 DIRECTORY [email or web address].[email or web address] Anesthesia Postop Eval I: Fluid Summary Crystalloid volume administer 10 12/26/24 12:43 DIRECTORY [email or web address].[email or web address] (ml) Colloids volume administered ( ml) Blood Product volume administered (ml) Total IV fluid infused 10 12/26/24 12:43 DIRECTORY [email or web address].[email or web address] Anesthesia Postop Eval I: Summary Notes Anesthesia Complication No 12/26/24 12:43 DIRECTORY [email or web address].[email or web address] Anesthesia Complication Comment: Post-operative progress note Anesthesia: Postop Eval II Evaluation Mental status: Awake Pain Level: 0 nausea: No Vomiting: No Complications Anesthesia Complication: No
--- NOTE | 2024-12-26 12:48 | PCM.POSTANE2 ---
Anesthesia Postop Eval I Sum Postop Eval Completion status Anesthesia document: Postop Eval 1 completed: Yes Anesthesia Postop Eval I Summary Anesthesia Postop Eval I Summary: Anesthesia Postop Eval I: Assessment Summary Airway patent Yes 12/26/24 12:43 INCOME TAX ADMINISTRATOR.[email or web address] Spontaneous unlabored Yes 12/26/24 12:43 INCOME TAX ADMINISTRATOR.[email or web address] respirations Mental status Awake,Calm 12/26/24 12:43 INCOME TAX ADMINISTRATOR.[email or web address] nausea No 12/26/24 12:43 INCOME TAX ADMINISTRATOR.GDOTT Vomiting No 12/26/24 12:43 INCOME TAX ADMINISTRATOR.[email or web address] Anesthesia Postop Eval I: Fluid Summary Crystalloid volume administer 10 12/26/24 12:43 INCOME TAX ADMINISTRATOR.GDOTT (ml) Colloids volume administered ( ml) Blood Product volume administered (ml) Total IV fluid infused 10 12/26/24 12:43 INCOME TAX ADMINISTRATOR.GDOTT Anesthesia Postop Eval I: Summary Notes Anesthesia Complication No 12/26/24 12:43 INCOME TAX ADMINISTRATOR.GDOTT Anesthesia Complication Comment: Post-operative progress note Anesthesia: Postop Eval II Evaluation Mental status: Awake Pain Level: 0 nausea: No Vomiting: No Complications Anesthesia Complication: No
== END 2024-12-26 12:27 | disposition home or self-care (01) ==
LOC: SDC 08:39 → AC 08:43
PROVIDERS: Obstetrics & Gynecology; PCP Family Medicine; Referring Provider Obstetrics & Gynecology; Visit Provider Obstetrics & Gynecology
PROC: 0UDB8ZZ Extraction of Endometrium, Via Natural or Artificial Opening Endoscopic (ICD-10-PCS; CPT 58558; principal; 2024-12-26 10:10)
DX: N93.9 Abnormal uterine and vaginal bleeding, unspecified (principal); N80.03 Adenomyosis of the uterus; Z79.899 Other long term (current) drug therapy
CPT/HCPCS: 58558; 58300; 00952; 36415; 80048; 81025; 85025; 88305; A4216; J2405

== ENCOUNTER 2025-04-10 11:30 | Outpatient (RCR) | payer BC, SELFPAY ==
--- NOTE | 2025-03-06 17:27 | HP.PTEVAL ---
Patient's Visit Information Visit Information Visit Information: STEPHANIE NORRIS is a 44 year old F referred to Physical Therapy by STEFANO Mendoza with a diagnosis of Outlet dysfunction constipation K59.02, constipation, unspecified K59.0. Date of Evaluation: 03/06/25 Physical Therapist: Meghan Craig Visit Plan Frequency: 1x/Week Duration: 2 Months Plan: Recommended patient order dilator set from [employer]. Briefly educated on how to use dilators but may require some more instruction. Please continue pelvic floor releases vaginally (moderate tightness bilaterally and superiorly at urethral sphincter). Has she tried squatty potty or splinting for bowel movements. Asked her to try deep breathing for pelvic floor relaxation and gave handout. Subjective Subjective: A year ago in December, she started having GI issues. Heartburn , severe abdominal cramping, not hungry. She lost a lot of weight. She tried heartburn medication and it did not help. Colonoscopy and endoscopy showed chronic inflammation. GI referral. CT scan of abdomen, pill can (showed possible ulcer in jejunum). They ruled out any uterine cancer (intravaginal US). She now has IUD . Her symptoms were bad for a year. She feels better now with all her GI symptoms but she still has constipation issues. 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 She thinks it was stress related. Last thing she has been struggling with is constipation. She did manometry which showed weak IAS and weak EAS as well as dyssynergic defecation. As long as she takes fiber in the mornings, she is going once every 2-3 days (if she doesn't take it, she will go 8 days). She rocks back and forth to have a bowel movements. No pelvic pain. No abdominal cramping. No low back pain. Incomplete bowel movements. She had gone to urologist several years ago (2020), she went for a lot of urgency/frequency symptoms. She was referred to pelvic floor PT but never went. Stress incontinence. 2 vaginal deliveries (second baby came very fast and she tore a lot). Very occasionally having trouble inserting a tampon here and there. She switched to using pads as tampon insertion too painful but no period now due to IUD. Her goal in coming here is the managing the constipation. She also has problems with a lot of urinary urgency and frequency some days. 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 Objective Objective: Moderate pelvic floor tightness bilaterally (worse left side layer 2, right side layer 1-2 and superiorly at urethral sphincter right side) No evidence of cystocele, Rectocele 1 LAYCOCK 1 (Improved to 1+ after manual therapy but she has difficulty relaxing after contractions) POPDI-6 3, CRAD-8 11, IAN-6 9 Goals Goal 1:: Stephanie will experience normal bowel movements once a day. Goal Time Frame: 8-12 Weeks Goal 2:: Stephanie will be able to cough or sneeze without leaking. Goal Time Frame: 6-8 Weeks Goal 3:: Stehpanie will be able to tolerate vaginal penetration using a medium sized speculum without pain or difficulty. Goal Time Frame: 4-6 Weeks Goal 4:: Stephanie will be on a more normal voiding schedule of voiding 5-7 times a day to allow for less disruption during day to day activities. Goal Time Frame: 8-12 Weeks Rehabilitation Potential Physical Therapy Diagnosis: Stress incontinence, unspecified dyspareunia, frequency of micturition Rehabilitation Potential: Excellent Anticipated Interventions Patient/Client Instruction: Educate patient on: Condition and Plan of Care For the Purpose of:: To improve muscle performance and motor function and To improve health and function Therapeutic Exercise to Include: Strength training, Neuromotor development and Relaxation training For the Purpose of:: To improve muscle performance and motor function and To improve health and function Manual Therapy Techniques to Include: Trigger point massage and Soft tissue mobilization For the Purpose of:: To improve muscle performance and motor function, To improve health and function and To improve self management Text: Thank you for the opportunity to evaluate your patient. For Medicare and Medicare HMO plans, please review the plan of care and approve it. It will need to be FAXED BACK to us at [phone] for Medicare purposes. For Medicare only, by signing this I certify the plan of care. Please let me know if there are questions or concerns regarding this plan of care. Physician Signature: Date:
--- NOTE | 2025-05-28 12:38 | HP.PT.NRP ---
Patient Information Patient Information: STEPHANIE NORRIS was seen in my office for initial evaluation on 03/06/25. The following Plan of Care was established for this patient: POC Established Initial Frequency: 1x/Week Initial Duration: 2 Months Anticipated Interventions Patient/Client Instruction: Educate patient on: Condition and Plan of Care For the Purpose of:: To improve muscle performance and motor function and To improve health and function Therapeutic Exercise to Include: Strength training, Neuromotor development and Relaxation training For the Purpose of:: To improve muscle performance and motor function and To improve health and function Manual Therapy Techniques to Include: Trigger point massage and Soft tissue mobilization For the Purpose of:: To improve muscle performance and motor function, To improve health and function and To improve self management Last Seen Last Seen: This patient was last seen in our office 04/10/25. Pertinent comments regarding their Physical therapy will appear below: Called and left patient a voicemail message. Explained as it has been a while since we have seen her, we were discharging her from PT and closing her chart. At this time, we are discharging her from PT. Asked her to call if she needed us again in the future. At this point I will be discontinuing this patient from physical therapy. I would be happy to see this patient again in the future if found appropriate by the physician. Thank you! Meghan Craig
== END 2025-04-10 19:00 | disposition home or self-care (01) ==
LOC: PT 11:30
PROVIDERS: PCP Family Medicine; Visit Provider Nurse Practitioner Acute Care
DX: K59.02 Outlet dysfunction constipation (principal)
CPT/HCPCS: 97112; 97140; 97162; 97530